=== PATIENT | female | born 1945 | race Caucasian/White ===

== ENCOUNTER 2023-12-30 06:15 | Day surgery (SDC) | payer MEDICARE, OTHER, SELFPAY ==
[2023-12-30 09:30] VITALS: BMI 24.5
[2023-12-30 09:31] VITALS: BP 148/63; BMI 24.5
[2023-12-30 11:51] VITALS: BP 130/72
[2023-12-30 12:00] VITALS: BP 144/70
[2023-12-30 12:15] VITALS: BP 115/53
== END 2023-12-30 12:30 | disposition home or self-care (01) ==
LOC: GI 06:15
PROVIDERS: ATTENDING PHYSICIAN Internal Medicine Gastroenterology
DX: K31.7 Polyp of stomach and duodenum (principal)
CPT/HCPCS: 43239; 88305

== ENCOUNTER → 2024-01-09 12:40 | Outpatient (REF) | payer MEDICARE, OTHER, SELFPAY | LOC: WDC 12:40 | PROVIDERS: ATTENDING PHYSICIAN Family Medicine | DX: Z12.31 Encounter for screening mammogram for malignant neoplasm of breast (principal) | CPT/HCPCS: 77063; 77067 ==

== ENCOUNTER → 2024-01-17 08:33 | Outpatient (REF) | payer MEDICARE, OTHER, SELFPAY ==
[2024-01-17 09:49] LABS: % Basophils 0.6 % (0-2); % Eosinophils 2.5 % (0-6); % Immature Granulocytes 0.4 % (0-0.5); % Lymphocytes 33.7 % (20.5-51.1); % Monocytes 8.9 % (1.7-9.3); % Neutrophils 53.9 % (42.2-75.2); Absolute Eosinophils 0.1 10^3/uL (0-0.7); Absolute Lymphocytes 1.8 10^3/uL (1.2-3.4); Absolute Monocytes 0.5 10^3/uL (0.1-0.6); Absolute Neutrophils 2.8 10^3/uL (1.4-6.5); Hematocrit 40.2 % (37.0-47.0); Hemoglobin 13.7 g/dL (12.0-16.0); Mean Corp Hgb Conc. 34.1 g/dL (33.0-37.0); Mean Corpuscular Hgb 29.1 pg (27.0-31.0); Mean Corpuscular Volume 85.4 fL (81.0-99.0); Mean Platelet Volume 10.1 fL (7.4-10.4); Nucleated Red Blood Cells % 0 %; Platelet Count 345 10^3/uL (130-400); Red Blood Cell Count 4.71 10^6/uL (4.20-5.40); Red Cell Dist. Width 12.5 % (11.5-14.5); White Blood Cell Count 5.2 10^3/uL (4.8-10.8)
[2024-01-17 10:08] LABS: ALT (SGPT) 16 U/L (0-35); AST (SGOT) 31 U/L (14-36); Albumin 4.4 g/dl (3.5-5.0); Alkaline Phosphatase 82 U/L (38-126); Blood Urea Nitrogen 17 mg/dl (7-17); Calcium 10.4 mg/dl (8.4-10.2); Carbon Dioxide 30 mmol/L (22-30); Chloride 102 mmol/L (98-107); Glucose 108 mg/dl (70-99); HDL Cholesterol 48 mg/dl; LDL Cholesterol, Calculated 113 mg/dl; Potassium 4.8 mmol/L (3.5-5.1); Sodium 138 mmol/L (135-145); Total Bilirubin 0.7 mg/dl (0.2-1.3); Total Cholesterol 194 mg/dl (50-199); Total Protein 6.9 g/dl (6.3-8.2); Triglyceride 166 mg/dl (10-149); Very Low Density Lipoprotein 33 mg/dl (0-30); eGFR > 60.00
[2024-01-17 10:34] LABS: Glycohemoglobin (HgbA1c) 5.9 % (4.0-5.6)
== END ==
LOC: REG 08:33
PROVIDERS: ATTENDING PHYSICIAN Family Medicine
DX: R73.03 Prediabetes (principal); R79.89 Other specified abnormal findings of blood chemistry; E78.00 Pure hypercholesterolemia, unspecified
CPT/HCPCS: 36415; 80053; 80061; 83036; 85025

== ENCOUNTER → 2024-01-27 11:16 | Outpatient (REF) | payer MEDICARE, OTHER, SELFPAY | LOC: DHCBC/DCA 11:16 | PROVIDERS: ATTENDING PHYSICIAN Nurse Practitioner Gerontology; FAMILY PHYSICIAN Family Medicine | DX: R07.9 Chest pain, unspecified (principal) | CPT/HCPCS: 78452; 93017; A9500 ==

== ENCOUNTER → 2024-02-04 12:46 | Outpatient (REF) | payer MEDICARE, OTHER, SELFPAY | LOC: HWRCS 12:46 | PROVIDERS: ATTENDING PHYSICIAN Nurse Practitioner Gerontology; FAMILY PHYSICIAN Family Medicine | DX: I35.0 Nonrheumatic aortic (valve) stenosis (principal) | CPT/HCPCS: 93306 ==

== ENCOUNTER 2024-02-05 06:37 | Day surgery (SDC) | payer MEDICARE, OTHER, SELFPAY ==
[2024-02-05] VITALS (8 sets, daily range): BP systolic 145–164; BP diastolic 56–83; BMI 23.8
== END 2024-02-05 17:15 | disposition home or self-care (01) ==
LOC: GI 06:37
PROVIDERS: ATTENDING PHYSICIAN Internal Medicine Gastroenterology
DX: D13.5 Benign neoplasm of extrahepatic bile ducts (principal); K29.50 Unspecified chronic gastritis without bleeding
CPT/HCPCS: 43274; 43250; 43273; 88305; 74330; 76000; 88342; C1769; C2617; C2625

== ENCOUNTER 2024-02-24 06:32 | Day surgery (SDC) | payer MEDICARE, OTHER, SELFPAY ==
[2024-02-24 10:45] VITALS: BMI 23.5
[2024-02-24 10:48] VITALS: BP 128/62
[2024-02-24 12:51] VITALS: BP 121/53
== END 2024-02-24 13:30 | disposition home or self-care (01) ==
LOC: SDS 06:32
PROVIDERS: ATTENDING PHYSICIAN Internal Medicine Gastroenterology
DX: Z46.59 Encounter for fitting and adjustment of other gastrointestinal appliance and device (principal)
CPT/HCPCS: 43247

== ENCOUNTER 2024-05-04 22:35 | Observation (INO) | payer MEDICARE, OTHER, SELFPAY ==
[2024-05-04] VITALS (9 sets, daily range): BP systolic 106–206; BP diastolic 60–93; BMI 24.6; BMI 25.0
[2024-05-04 14:00] LABS: % Basophils 0.5 % (0-2); % Eosinophils 1.7 % (0-6); % Immature Granulocytes 0.5 % (0-0.5); % Monocytes 7.2 % (1.7-9.3); % Neutrophils 70.1 % (42.2-75.2); Absolute Eosinophils 0.1 10^3/uL (0-0.7); Absolute Lymphocytes 1.6 10^3/uL (1.2-3.4); Absolute Monocytes 0.6 10^3/uL (0.1-0.6); Absolute Neutrophils 5.7 10^3/uL (1.4-6.5); Hematocrit 37.7 % (37.0-47.0); Mean Corp Hgb Conc. 34.5 g/dL (33.0-37.0); Mean Corpuscular Hgb 29.1 pg (27.0-31.0); Mean Corpuscular Volume 84.3 fL (81.0-99.0); Mean Platelet Volume 10.4 fL (7.4-10.4); Nucleated Red Blood Cells % 0 %; Platelet Count 335 10^3/uL (130-400); Red Blood Cell Count 4.47 10^6/uL (4.20-5.40); Red Cell Dist. Width 13.4 % (11.5-14.5); White Blood Cell Count 8.2 10^3/uL (4.8-10.8)
[2024-05-04 14:16] LABS: ALT (SGPT) 57 U/L (0-35); AST (SGOT) 147 U/L (14-36); Albumin 4.4 g/dl (3.5-5.0); Alkaline Phosphatase 130 U/L (38-126); Blood Urea Nitrogen 13 mg/dl (7-17); Calcium 10.5 mg/dl (8.4-10.2); Carbon Dioxide 28 mmol/L (22-30); Chloride 104 mmol/L (98-107); Glucose 127 mg/dl (70-99); Lipase 237 U/L (23-300); Potassium 3.7 mmol/L (3.5-5.1); Sodium 139 mmol/L (135-145); Total Bilirubin 1.3 mg/dl (0.2-1.3); Total Protein 6.8 g/dl (6.3-8.2); eGFR > 60.00
[2024-05-04] MEDS: OMNIPAQUE 50 ML PO (15:50)
[2024-05-04] MEDS: NSS 1000 IV (15:59)
[2024-05-04] MEDS: TORADOL 15 MG IV (15:59)
--- NOTE | 2024-05-04 16:24 | ED.GENMED ---
History of Present Illness
General
Chief Complaint: Abdominal Symptoms
Time Seen by Provider: 05/04/24 14:59
History of Present Illness
History of Present Illness:
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 Patient reports pain started a few hours prior to arrival. Notes
nausea without vomiting. Pain is located in the right side. History of tubal ligation, otherwise no additional abdominal surgeries. Denies fever. Pain is worse with deep inspiration. Denies chest culture breathing. Denies complaints.
Denies any changes in stool. Denies additional medical complaints
Phy Exam
Physical Exam
Physical Exam:
General: Well-appearing, no clinical signs of dehydration, nontoxic and in no acute distress
HEENT: protecting airway
Neck: appears supple
CV: Normal heart rate, regular rhythm, no evidence of cyanosis
Resp: No accessory muscle use, no increased work of breathing, lungs clear to auscultation bilaterally
Abd: Soft and non-distended, generalized tenderness most prominent in the right upper quadrant and right lower quad
Extremities: No deformities, no swelling, no erythema, pulses and sensation intact
Neuro: alert, no focal neurologic deficit
: deferred
Rectal: deferred
Psych: Normal affect
Skin: Intact
Course
Orders/Labs/Results
Orders:
Orders
05/04/24 13:49
Complete Blood Count/With Diff Urgent
Comprehensive Metabolic Panel Urgent
Lipase Urgent
05/04/24 15:38
CT Abd/pel W Iv And Oral Contr Urgent
Comment:
Reason For Exam: right sided pain
0.9% Sodium Chloride 1000 ml [Nss] 1,000 ml IV BOLUS
Iohexol [Omnipaque] See Protocol PO NOW STA
Ketorolac [Toradol] 15 mg IV NOW STA
05/04/24 18:30
US Abdomen Limited Urgent
Comment:
Reason For Exam: right sided pain, hx of tumor to extrahepatic duct
05/04/24 18:32
Ondansetron Injectable [Zofran] 4 mg IV NOW STA
Abnormal Lab Results
05/04/24
13:49
Lymphocytes % 20.0 L %
(20.5-51.1)
Glucose 127 H mg/dl
(70-99)
Calcium 10.5 H mg/dl
(8.4-10.2)
AST 147 H U/L
(14-36)
ALT 57 H U/L
(0-35)
Alkaline Phosphatase 130 H U/L
(38-126)
05/04/24 13:49
05/04/24 13:49
Vital Signs
Initial and Last Documented VS:
Initial Vital Signs
Temp Pulse Resp BP Pulse Ox
97.8 F 85 18 206/93 96
05/04/24 13:37 05/04/24 13:37 05/04/24 13:37 05/04/24 13:37 05/04/24 13:37
Last Documented Vital Signs
Temp Pulse Resp BP Pulse Ox
99.0 F 99 24 158/67 93
05/04/24 19:54 05/04/24 19:54 05/04/24 19:54 05/04/24 19:54 05/04/24 19:54
MDM/Problems Addressed
MDM/Problems Addressed:
78-year-old female with prior history of benign neoplasm x 2 to her extrahepatic duct status post removal presenting for right-sided abdominal pain. Vital signs significant for hypertension which resolved without intervention.
On exam, patient nontoxic, no acute distress. On abdominal exam, generalized tenderness, however most prominent to the right upper and lower quadrant of the abdomen. Possible gallbladder pathology versus recurrent neoplasm to extrahepatic ducts.
Additional consideration is appendicitis versus colitis versus diverticulitis. Given multiple differentials, plan for CT abdominal imaging with laboratory analysis. Toradol administered for pain.
18:30 -CT without significant abnormality. Patient is now vomiting, still having pain. For this reason we will obtain right upper quadrant ultrasound
20:40 -right upper quadrant ultrasound shows some dilatation to the biliary duct. Given transaminitis with this finding and patient's location of pain, feel patient warrants admission for MRCP. Patient agreeable to plan
*Critical Care Note
Total Time (30-74mins, 75-104mins- exclusive of procedures): Not Applicable
ED Attending Note
-
Portions of this chart may have been created with voice recognition software.� Occasional wrong word or��sound alike� substitutions may have occurred due to the inherent limitations of voice recognition software.
Discharge Plan
Departure
Prescriptions:
No Action
multivitamin Tablet
1 tab PO DAILY
lisinopril-hydrochlorothiazide 20-12.5 mg Tablet
1 tab PO HS
simvastatin 40 mg Tablet
40 mg PO HS
pantoprazole 40 mg Tablet,Delayed Release (Dr/Ec)
40 mg PO HS
cholecalciferol (vitamin D3) [Vitamin D3] 25 mcg (1,000 unit) Tablet
25 mcg PO DAILY
acetaminophen [Tylenol] 325 mg Tablet
650 mg PO Q6H PRN (Reason: pain)
Referrals:
Arnold Hollingsworth MD [Family Provider] -
Interventions
Interventions:
*Risk Screen - Suicide Last Done: 05/04/24 16:09
*General Assessment Last Done: 05/04/24 13:37
*Neglect/Abuse Screening Last Done: 05/04/24 13:37
ED- Fall Risk Assessment Last Done: 05/04/24 16:09
*ED COVID-19 Vaccine History Last Done: 05/04/24 16:09
MT-Dsjozr-Mcmkuaoqpo Assessment Last Done: 05/04/24 16:09
Discharge Date and Time
Print Language: UPPER SORBIAN
[2024-05-04] MEDS: ZOFRAN 4 MG IV (18:35)
--- NOTE | 2024-05-04 21:15 | HPS.HSE ---
Family Physician
-
Family Physician: Arnold Hollingsworth MD
Chief Complaint
-
abdominal pain
History of Present Illness
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
started few hours prior to arrival with some radiation to the back. Patient is nausea without vomiting. Pain is located on the right side and worse with deep inspiration. No fever but did have chills. No urinary symptoms. No chest pain or
shortness of breath. No diarrhea.
She drinks alcohol occasionally. She denies smoking.
Medical History
Past Medical History
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
Past Surgical History: Reports Other (ERCP, CBD stents )
Social History
Tobacco: Non-smoker
Alcohol: Occasional
Drug: None
Family History
Family History: Not pertinent
Allergies / Home Medications
Allergies reflects when Allergies were last updated in [facility].
Home Medications with original date entered in [facility]
Allergy/Medication List:
Allergies
Allergy/AdvReac Type Severity Reaction Status Date / Time
No Known Allergies Allergy Verified 05/04/24 13:43
Home Medications
lisinopril 20 mg-hydrochlorothiazide 12.5 mg tablet 1 tab PO HS Blood Pressure 03/11/23
pantoprazole 40 mg tablet,delayed release 40 mg PO HS Gastrointestinal Issue 03/11/23
simvastatin 40 mg tablet 40 mg PO HS High Cholesterol 03/11/23
Review of Systems
-
History Source: Patient
A 12 point ROS was completed and negative except as noted: Yes
Constitutional: Reports No Symptoms
EENT: Reports No Symptoms
Respiratory: Reports No Symptoms
Cardiac: Reports No Symptoms
Abdomen/GI: Reports See HPI
: Reports No Symptoms
Musculoskeletal: Reports No Symptoms
Skin: Reports No Symptoms
Neurological: Reports No Symptoms
Endocrine: Reports No Symptoms
Hematologic/Lymphatic: Reports No Symptoms
Psych: Reports No Symptoms
Physical Exam
Vital Signs
Vital Signs
Temp Pulse Resp BP Pulse Ox
99.0 F 99 24 158/67 93
05/04/24 19:54 05/04/24 19:54 05/04/24 19:54 05/04/24 19:54 05/04/24 19:54
Physical Exam
General: Well Developed, Well Nourished and No Apparent Distress
HEENT: NormoCephalic, Moist mucous membranes and Atraumatic
Respiratory: Clear
Cardiac: S1/S2 and Regular Rhythm; No Murmur or Rub
GI: Soft, Non Tender, Non Distended and Normal Bowel Sounds; No Organomegaly
Rectal: Deferred by Provider
Musculoskeletal: No Clubbing, No Cyanosis and No Edema
Skin: No Rash
Neuro: Nonfocal/grossly intact
Laboratory Results
-
05/04/24 13:49
05/04/24 13:49
Laboratory Results
Total Bilirubin 1.3 mg/dl (0.2-1.3) 05/04/24 13:49
AST 147 U/L (14-36) H 05/04/24 13:49
ALT 57 U/L (0-35) H 05/04/24 13:49
Alkaline Phosphatase 130 U/L (38-126) H 05/04/24 13:49
Lipase 237 U/L (23-300) 05/04/24 13:49
Data Reviewed
-
Lab Data: Labs Reviewed by me
Old Records: Reviewed
Impression/Plan
-
IMPRESSION:
PLAN:
# Abdominal pain possibly secondary to recurrent CBD obstruction
# History of ampullary adenoma status post ampullectomy/CBD/ventral pancreatic duct stenting with subsequent stent removal
# Transaminitis
-CT abdomen pelvis shows without notable findings
-Abdominal ultrasound shows mildly dilated common bile duct with questionable stent, mild pneumobilia
-MRCP
-N.p.o.
-IV fluids given
-Hold off antibiotics as no clear indication of infection
-GI consulted
Essential hypertension
-Continue lisinopril/hydrochlorothiazide
Hyperlipidemia
-Hold statin due to transaminitis
GERD
-Continue Protonix
DNR/DNI
DVT prophylaxis�heparin
N.p.o.
[2024-05-04] MEDS: FLUSH (NSS) 1 FLUSH IV (22:00)
[2024-05-04] MEDS: TYLENOL 650 MG PO (22:10)
--- NOTE | 2024-05-04 23:47 | PTCARENOTE ---
Patient arrived to unit around 23:00 via wheelchair with dx of Abdominal pain, possible CBD obstruction. Patient denies pain or discomfort at current time. Pleasant and cooperative with care. No signs of distress. Oriented to unit. Call rose within
reach.
[2024-05-05] VITALS: BP 104/60
[2024-05-05] MEDS: ZESTRIL PO (00:06)
[2024-05-05] MEDS: ORETIC PO (00:06)
--- NOTE | 2024-05-05 00:07 | PTCARENOTE ---
Patient Blood pressure on admit to floor was 106/70 with heart rate of 99. TRUCK OPERATOR notified because patient scheduled for Lisinopril and Hydrochlorothiazide with no parameters. Per TRUCK OPERATOR, recheck BP in 30 minutes. BP rechecked manually at 00:00 with BP
104/60 and heart rate 87. TRUCK OPERATOR notified and per TRUCK OPERATOR hold BP meds for tonight.
[2024-05-05] MEDS: PROTONIX 40 MG PO ×2 (00:11→21:20)
[2024-05-05 07:00] LABS: % Basophils 0.4 % (0-2); % Eosinophils 0.5 % (0-6); % Immature Granulocytes 0.4 % (0-0.5); % Lymphocytes 5.8 % (20.5-51.1); % Monocytes 5.6 % (1.7-9.3); % Neutrophils 87.3 % (42.2-75.2); Absolute Eosinophils 0.1 10^3/uL (0-0.7); Absolute Lymphocytes 0.6 10^3/uL (1.2-3.4); Absolute Monocytes 0.6 10^3/uL (0.1-0.6); Absolute Neutrophils 9.6 10^3/uL (1.4-6.5); Hematocrit 34.8 % (37.0-47.0); Hemoglobin 11.7 g/dL (12.0-16.0); Mean Corp Hgb Conc. 33.6 g/dL (33.0-37.0); Mean Corpuscular Hgb 28.7 pg (27.0-31.0); Mean Corpuscular Volume 85.5 fL (81.0-99.0); Mean Platelet Volume 10.8 fL (7.4-10.4); Nucleated Red Blood Cells % 0 %; Platelet Count 281 10^3/uL (130-400); Red Blood Cell Count 4.07 10^6/uL (4.20-5.40); Red Cell Dist. Width 13.6 % (11.5-14.5)
[2024-05-05 07:30] VITALS: BP 122/57
[2024-05-05 07:33] LABS: ALT (SGPT) 562 U/L (0-35); AST (SGOT) 664 U/L (14-36); Albumin 3.7 g/dl (3.5-5.0); Alkaline Phosphatase 171 U/L (38-126); Blood Urea Nitrogen 17 mg/dl (7-17); Calcium 9.2 mg/dl (8.4-10.2); Carbon Dioxide 28 mmol/L (22-30); Chloride 102 mmol/L (98-107); Estimated Creatinine Clearance 35 ml/min; Glucose 101 mg/dl (70-99); Potassium 4.2 mmol/L (3.5-5.1); Sodium 135 mmol/L (135-145); Total Protein 5.8 g/dl (6.3-8.2); eGFR 57.66
--- NOTE | 2024-05-05 08:35 | CON.GI ---
Addendum entered and electronically signed by Rajani Hoyos MD 05/05/24 19:56:
I saw and examined the patient.
The resident's note was reviewed and I agree with the note.
Comment: 78-year-old female with history of ampullary adenoma status post endoscopic ampullectomy May 2023 who is known to Dr. Hollingsworth, repeat endoscopy December 2023 showing residual polyp at the ampulla, biopsies showing tubular adenoma, subsequent
ampullectomy with APC in early January 2024 followed by ERCP and placement of plastic stents in the CBD and pancreatic duct, subsequently removed end of January 2024 now presenting with right upper quadrant abdominal pain starting last night. Pain was
going to the mid abdomen, on and off, similar to previous abdominal discomfort that she has had, had 1 episode of vomiting. Currently pain has resolved.
She did well since January 2024 after her EUS/ERCP without any GI symptoms-No abdominal pain, nausea or vomiting, heartburn, trouble swallowing. No constipation, diarrhea, blood in the stool or black stool. No NSAID use.
In the ER she had mild leukocytosis, her total bilirubin on admission was 1.3, it went up to 3.0, AST of 147, went up to 664, ALT of 57, up to 562 and alkaline phosphatase of 130, up to 171.Lipase in normal range.
On admission 05/04/[address] scan of the abdomen and pelvis with IV and oral contrast, small volume intrahepatic biliary tract air, related to prior sphincterotomy, otherwise no significant findings. Abdominal ultrasound shows mildly dilated
common duct and mild pneumobilia and minimal gallbladder sludge.MRI of the abdomen with MRCP showing small amount of pericholecystic fluid, mild gallbladder wall thickening and 2 small filling defects in the gallbladder consistent with stones.
Common duct 9.3 mm, previously 12 mm low-signal intensity intraluminal filling defects in the common duct but given pneumobilia, likely related to previous manipulation.
-Right upper quadrant abdominal pain with elevated LFTs
Imaging consistent with possible bladder sludge, wall thickening, questionable filling defects, cannot rule out acute cholecystitis/choledocholithiasis
Currently no pain. No Bocanegra sign.
Will do HIDA scan to evaluate for acute cholecystitis/choledocholithiasis
Monitor LFTs
Will follow closely
Original Note:
Medical History
Chief Complaint / HPI
Chief Complaint: Abdominal pain
History of Present Illness:
Patient is a 70-year-old female with past medical history of ampullary adenoma (known to Dr. Hollingsworth) s/p endoscopic ampullectomy (06/03/23) who presented to ED with right upper abdominal pain. Patient was nauseous prior to presentation and had 1
episode of NBNB vomiting while in ED. Her last bowel movement was yesterday morning which was nonbloody/non-tarry. She denies any fever or chills during the past few days. Patient underwent ERCP and biliary pancreatic stent placement on 02/05/24.
Stents were removed by Dr. Hollingsworth on 02/24/24. At the time of consultation, patient mentions abdominal pain has resolved. Abdominal CT is unremarkable. No gallbladder wall thickening/stones on US. Sonographic Bocanegra's sign is negative.
Patient denies any recent weight loss or change in bowel movements. Last colonoscopy was in 2020 and she is scheduled for next follow-up cscopy in 2025.
PCP is Gloria Brandt. Does not see an oncologist.
Past Medical History
Past Medical History: GERD, HTN, Hypercholesterolemia and Other (Ampullary adenoma, colon polyps, duodenal polyps)
Past Surgical History: Other (endoscopic ampullectomy)
Family History
Family History: Cancer (Father had esophageal cancer, no history of colon cancer in family members)
Allergies / Home Medications
Allergy/AdvReac Type Severity Reaction Status Date / Time
No Known Allergies Allergy Verified 05/04/24 13:43
�Medication �Instructions �Recorded
lisinopril 20 1 tab PO HS Blood Pressure 03/11/23
mg-hydrochlorothiazide 12.5 mg
tablet
pantoprazole 40 mg tablet,delayed 40 mg PO HS Gastrointestinal Issue 03/11/23
release
simvastatin 40 mg tablet 40 mg PO HS High Cholesterol 03/11/23
Review of Systems
-
History Source: Patient
All other systems: A 12 pt ROS was Negative except as stated above in HPI
Abdomen/GI: Denies Abdominal Pain or Bloody Stools
Vital Signs
Temp Pulse Resp BP Pulse Ox
99.4 F 84 16 122/57 91
05/05/24 07:30 05/05/24 07:30 05/05/24 07:30 05/05/24 07:30 05/05/24 07:30
Physical Exam
Exam
General: Well Developed and No Apparent Distress
HEENT: Normocephalic
Respiratory: Clear
Cardiac: S1/S2 and Regular Rhythm
GI: Soft, Non Tender, Non Distended and Normal Bowel Sounds
Musculoskeletal: No Edema
Skin: Warm and Dry
Neuro: Awake, Alert, Oriented and AO x 3
Results
WBC 11.0 10^3/uL (4.8-10.8) H 05/05/24 05:50
Hgb 11.7 g/dL (12.0-16.0) L 05/05/24 05:50
Hct 34.8 % (37.0-47.0) L 05/05/24 05:50
MCV 85.5 fL (81.0-99.0) 05/05/24 05:50
Plt Count 281 10^3/uL (130-400) 05/05/24 05:50
Absolute Neuts (auto) 9.6 10^3/uL (1.4-6.5) H 05/05/24 05:50
Sodium 135 mmol/L (135-145) 05/05/24 05:50
Potassium 4.2 mmol/L (3.5-5.1) 05/05/24 05:50
Chloride 102 mmol/L (98-107) 05/05/24 05:50
Carbon Dioxide 28 mmol/L (22-30) 05/05/24 05:50
BUN 17 mg/dl (7-17) 05/05/24 05:50
Creatinine 1.0 mg/dL (0.6-1.0) 05/05/24 05:50
Calcium 9.2 mg/dl (8.4-10.2) 05/05/24 05:50
Total Bilirubin 3.0 mg/dl (0.2-1.3) H D 05/05/24 05:50
AST 664 U/L (14-36) H* 05/05/24 05:50
ALT 562 U/L (0-35) H* 05/05/24 05:50
Alkaline Phosphatase 171 U/L (38-126) H 05/05/24 05:50
Lipase 237 U/L (23-300) 05/04/24 13:49
Diagnostic Image Results:
Abdominal ultrasound (05/04/2024):
Mildly dilated common bile duct with questionable stent.
Mild pneumobilia suspected as noted on concurrent CT.
Minimal gallbladder sludge. No gallbladder wall thickening. Negative sonographic Bocanegra's sign.
Abdominal CT scan (05/04/2024):
Unremarkable appendix.
Unremarkable small bowel. Only small volume oral contrast seen in portion of cecum, remainder of large bowel markedly limited in evaluation without oral contrast as well as markedly limited evaluation of virtually completely empty descending colon,
sigmoid and rectum. No intestinal obstruction or free air.
Relative small size, possibly contracted gallbladder, limited without gross focal intrinsic abnormality. Small volume intrahepatic biliary tract air decreased in comparison to prior CT, possibly related to prior sphincterotomy/procedure. Apparent
plastic common bile duct and pancreatic duct stents placed in January 2024, not discretely appreciated on this study in this patient with known ampullary adenoma.
No findings to suggest obstructive uropathy bilaterally.
Prior GI Procedures:
EGD:
02/24/2024: Plastic biliary pancreatic stents in the duodenum removed.
02/05/2024: Normal esophagus. No gross lesions in the entire stomach. Normal duodenal bulb and first portion of the duodenum. Duodenal diverticulum.Mass (suspected recurrent / residual adenoma) in the ampulla. Treated with hot biopsy forceps. Treated
with argon plasma coagulation (APC)
Colonoscopy:
02/23/21: One 9 mm polyp in the sigmoid colon, removed with a hot snare.
03/06/16: Two 4 to 5 mm polyps in the sigmoid colon and in the descending colon.
Assessment / Plan
-
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
Patient's abdominal pain is now resolved and is not tender to palpation. No fever recorded in chart during the past day. LFTs continue to rise. Total bili is 3. Abdominal CT is unremarkable except small volume intrahepatic biliary tract air
(decreased in comparison to prior CT) .Patient is n.p.o. and scheduled for MRCP later today.
Recommendations:
-Continue Protonix
-Agree with no need for antibiotics
-Depending on MRCP results, may consider transfer to tertiary center
-Possible HIDA scan tomorrow
-Antiemetics as needed
-
-
Thank you for consultation and allowing me to participate in the patient's care. Please call the telephone answerer GI physician during the after hours with any questions or concerns.
[2024-05-05] MEDS: HEPARIN 5000 UNITS SC ×2 (10:21→21:19)
[2024-05-05] MEDS: TYLENOL 650 MG PO ×2 (12:17→22:36)
--- NOTE | 2024-05-05 13:39 | W.PN.HOSP.TC ---
Today's Communication/Plan
-
Follow-up MRCP, coordinate with GI and regards to plan
Trend LFTs daily, avoid hepatotoxins
Monitor for fevers or worsening AMS
Assessment / Plan
Assessment / Plan
#Transaminitis -- Hepatocellular pattern
#Abdominal pain -- secondary to recurrent CBD obstruction???
#H/O ampullary adenoma
#S/P ampullectomy/CBD/ventral pancreatic duct stenting with subsequent stent removal
-Presented with mildly elevated AST and ALT, normal bilirubin; labs today show AST and ALT >10 times UN L, bilirubin 3.0, ALP 171
-CT A/P without contrast did not show any evidence of extrinsic causes for biliary obstruction or acute liver injury
-Abdominal US showed mildly dilated CBD; MRCP showed slight improvement to ductal dilation, intraluminal filling defects
-Has remained afebrile, without leukocytosis, HD stable and cognitively intact; suspicion for cholangitis is very low
-GI following
Plan
-Will follow-up with GI in regards to MRCP findings, possible indication for transfer versus ERCP
-Continue to trend daily LFTs while here, will begin to monitor INR as well tomorrow
-Holding statin therapy, avoid unnecessary hepatotoxins as able
-N.p.o. pending potential procedure
#Essential hypertension
-Chronic, no known history of hypertensive systemic disease
-Home medications include lisinopril and hydrochlorothiazide nightly
-BP currently well-controlled
#Hyperlipidemia
-No known history of ASCVD
-Home simvastatin held due to uptrending LFTs
#GERD
-No known history of Salinas's disease, no known history of erosive findings
-Home medications include Protonix nightly
-No red flag symptoms, stable
DNR/DNI
DVT prophylaxis�heparin
Diet: N.p.o.
Anticipated Discharge: > 48 hours
Subjective/Interval History
-
Date of Service: May 05, 2024
Objective Data
-
Labs:
Laboratory Results
05/05/24
05:50
WBC 11.0 H
Hgb 11.7 L
Hct 34.8 L
Plt Count 281
Sodium 135
Potassium 4.2
Chloride 102
Carbon Dioxide 28
BUN 17
Creatinine 1.0
Glucose 101 H
Calcium 9.2
Total Bilirubin 3.0 H D
AST 664 H*
ALT 562 H*
Alkaline Phosphatase 171 H
Vital Signs:
Vital Signs
Temp Pulse Resp BP Pulse Ox
99.4 F 84 16 122/57 91
05/05/24 07:30 05/05/24 07:30 05/05/24 07:30 05/05/24 07:30 05/05/24 07:30
--- NOTE | 2024-05-05 13:56 | CM ---
Patient seen bedside, initial assessment completed. Patient resides with her spouse in a multiple story home, master bedroom on the first floor, one step to enter home. Patient denies DME, VN, or SNF. Patient PCP Gloria Brandt, pharmacy [facility]
[place], confirms prescription coverage. Patient denies food, housing/utility, transportation insecurities at home. [employer] form reviewed, signed, placed in chart, patient provided with copy. CM will continue to follow for all discharge planning
needs.
Plan; home no needs likely.
[2024-05-05 15:51] VITALS: BP 125/50
[2024-05-05] MEDS: ZESTRIL 20 MG PO (21:20)
[2024-05-05] MEDS: ORETIC 12.5 MG PO (21:20)
[2024-05-05 23:03] VITALS: BP 107/80
[2024-05-06 07:00] VITALS: BP 148/64
[2024-05-06 07:18] LABS: % Basophils 0.1 % (0-2); % Eosinophils 2.7 % (0-6); % Immature Granulocytes 0.4 % (0-0.5); % Monocytes 9.5 % (1.7-9.3); % Neutrophils 78.3 % (42.2-75.2); Absolute Eosinophils 0.2 10^3/uL (0-0.7); Absolute Lymphocytes 0.7 10^3/uL (1.2-3.4); Absolute Monocytes 0.7 10^3/uL (0.1-0.6); Absolute Neutrophils 6.1 10^3/uL (1.4-6.5); Hematocrit 34.7 % (37.0-47.0); Mean Corp Hgb Conc. 34.6 g/dL (33.0-37.0); Mean Corpuscular Hgb 29.2 pg (27.0-31.0); Mean Corpuscular Volume 84.4 fL (81.0-99.0); Mean Platelet Volume 10.8 fL (7.4-10.4); Nucleated Red Blood Cells % 0 %; Platelet Count 256 10^3/uL (130-400); Red Blood Cell Count 4.11 10^6/uL (4.20-5.40); Red Cell Dist. Width 13.6 % (11.5-14.5); White Blood Cell Count 7.8 10^3/uL (4.8-10.8)
[2024-05-06 07:23] LABS: INR 1.02; PT 13.4 Sec (11.4-14.6)
[2024-05-06 08:04] LABS: ALT (SGPT) 384 U/L (0-35); AST (SGOT) 226 U/L (14-36); Albumin 3.8 g/dl (3.5-5.0); Alkaline Phosphatase 178 U/L (38-126); Blood Urea Nitrogen 10 mg/dl (7-17); Calcium 9.7 mg/dl (8.4-10.2); Carbon Dioxide 30 mmol/L (22-30); Chloride 103 mmol/L (98-107); Direct Bilirubin 1.1 mg/dl (0.0-0.4); Estimated Creatinine Clearance 35 ml/min; Glucose 102 mg/dl (70-99); Potassium 4.4 mmol/L (3.5-5.1); Sodium 137 mmol/L (135-145); Total Bilirubin 2.4 mg/dl (0.2-1.3); Total Protein 5.9 g/dl (6.3-8.2); eGFR 57.66
[2024-05-06] MEDS: ZOSYN 50 IV ×3 (10:13→20:55)
[2024-05-06] MEDS: HEPARIN 5000 UNITS SC ×2 (10:15→20:55)
--- NOTE | 2024-05-06 10:39 | W.PN.HOSP.TC ---
Today's Communication/Plan
-
Start IV Zosyn empirically for fever
Follow-up HIDA scan
Trend LFT
Assessment / Plan
Assessment / Plan
#Transaminitis/suspected transient biliary obstruction -- Mixed pattern initially, now improving
#Suspected cholecystitis
#H/O ampullary adenoma
#S/P ampullectomy/CBD/ventral pancreatic duct stenting with subsequent stent removal
-Presented with mildly elevated AST and ALT, normal bilirubin; labs today show AST and ALT >10 times ULN, bilirubin 3.0, ALP 171
-CT A/P without contrast did not show any evidence of extrinsic causes for biliary obstruction or acute liver injury
-Abdominal US showed mildly dilated CBD; MRCP showed slight improvement to ductal dilation, intraluminal filling defects
-LFTs this morning show improved transaminases and bilirubin/ALP levels; suspect transient obstruction from stone
-Has remained hemodynamically stable throughout hospital stay, did spike fever yesterday
Plan
-Start IV Zosyn empirically for biliary coverage
-HIDA scan today, follow-up results
-Continue to trend daily LFTs while here
-Holding statin therapy, avoid unnecessary hepatotoxins as able
-Continue with clear liquid diets
#Essential hypertension
-Chronic, no known history of hypertensive systemic disease
-Home medications include lisinopril and hydrochlorothiazide nightly
-BP currently well-controlled
#Hyperlipidemia
-No known history of ASCVD
-Home simvastatin held due to uptrending LFTs
#GERD
-No known history of Salinas's disease, no known history of erosive findings
-Home medications include Protonix nightly
-No red flag symptoms, stable
DNR/DNI
DVT prophylaxis�heparin
Diet: CLD, NPO at midnight
Anticipated Discharge: 24 - 48 hours
Subjective/Interval History
-
Date of Service: May 06, 2024
Seen and examined at bedside. Overnight she did spike a fever 101 �F, states she felt febrile at the time. No longer feels feverish this morning. Denies nausea, vomiting, diarrhea, abdominal pain. Denies urinary issues. Denies abnormal bleeding
or bruising. Has not had a bowel movement, denies constipation though she states she has not had solid food in days
Objective Data
-
Labs:
Laboratory Results
05/06/24
06:49
WBC 7.8
Hgb 12.0
Hct 34.7 L
Plt Count 256
PT 13.4
INR 1.02
Sodium 137
Potassium 4.4
Chloride 103
Carbon Dioxide 30
BUN 10
Creatinine 1.0
Glucose 102 H
Calcium 9.7
Total Bilirubin 2.4 H
AST 226 H
ALT 384 H
Alkaline Phosphatase 178 H
Vital Signs:
Vital Signs
Temp Pulse Resp BP Pulse Ox
98.7 F 84 18 148/64 95
05/06/24 07:00 05/06/24 07:00 05/06/24 07:00 05/06/24 07:00 05/06/24 07:00
I&O
05/05/24 05/06/24 05/07/24
06:59 06:59 06:59
Intake Total 850 / 850
Balance 850 / 850
Review of Systems
-
History Source: Patient
All other systems: Reviewed and negative
Physical Exam
-
General: Well Nourished, No Apparent Distress and Comfortable
HEENT: Normocephalic, Atraumatic, Moist Mucous Membranes and Anicteric
Respiratory: Clear to Auscultation and Non Labored Respirations
Cardiac: Regular Rhythm, S1/S2 and Murmur (3/6 late peaking ODALIS across precordium, mildly reduced S2 with reduced carotid upstroke)
GI: Soft, Nontender, Nondistended and Normal Bowel Sounds; Negative Organomegaly
Musculoskeletal: No Clubbing, No Cyanosis and No Edema
Skin: Warm and Dry; Negative Rash or Jaundice
Neuro: AO x 3, Nonfocal/Grossly Intact and Central Nerve's Intact
Hematologic / Lymphatic: No Lymphadenopathy
Data Reviewed
-
Labs: Labs Reviewed by me and Discussed with Patient
--- NOTE | 2024-05-06 10:57 | W.PN.GI.CBS2 ---
Addendum entered and electronically signed by Rajani Hoyos MD 05/06/24 16:27:
I saw and examined the patient.
The resident's note was reviewed and I agree with the note.
Comment: Patient denies any abdominal pain, nausea or vomiting. Had fever overnight but nothing since. Otherwise feels well.
LFTs trending down.
HIDA scan did not show any evidence of acute cholecystitis or choledocholithiasis or bile duct obstruction.
Cannot rule out gallbladder sludge could have passed causing symptoms.
Given no abdominal pain LFTs trending down, will put her on a low-fat diet.
If no further symptoms and LFTs continue to trend down, follow-up with Dr. Hollingsworth as an outpatient in the office.
Original Note:
Today's Communication / Plan
-
HIDA scan today
Assessment / Plan
-
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
Patient's abdominal pain is resolved and is not tender to palpation. Negative Bocanegra sign. Two episodes of fever recorded in chart during the past day. Currently afebrile. LFT and bili is downtrending. Abdominal CT is unremarkable except small
volume intrahepatic biliary tract air (decreased in comparison to prior CT) . MRI of the abdomen with MRCP showed small amount of pericholecystic fluid, mild gallbladder wall thickening and 2 small filling defects in the gallbladder consistent with
stones. Common duct 9.3 mm, previously 12 mm low-signal intensity intraluminal filling defects in the common duct but given pneumobilia, likely related to previous manipulation.
Plan:
- Continue Protonix
- HIDA to be done this morning to evaluate cholecystics, choledocholithiasis
- Can ADAT after HIDA is done
- Continue to monitor LFTs, body temperature
Subjective
Subjective
Date of Service: May 06, 2024
Patient is feeling good. Had two episodes of fever overnight but is currently afebrile and hemodynamically stable. She does not complain of any abdominal pain. No nausea/vomiting.
Objective
Data Reviewed
Laboratory Data:
Laboratory Results
05/06/24 06:49
05/06/24 06:49
Laboratory Results
PT 13.4 Sec (11.4-14.6) 05/06/24 06:49
INR 1.02 05/06/24 06:49
Total Bilirubin 2.4 mg/dl (0.2-1.3) H 05/06/24 06:49
AST 226 U/L (14-36) H 05/06/24 06:49
ALT 384 U/L (0-35) H 05/06/24 06:49
Alkaline Phosphatase 178 U/L (38-126) H 05/06/24 06:49
Lipase 237 U/L (23-300) 05/04/24 13:49
Vital Signs and I&O:
Vital Signs
Temp Pulse Resp BP Pulse Ox
98.7 F 84 18 148/64 95
05/06/24 07:00 05/06/24 07:00 05/06/24 07:00 05/06/24 07:00 05/06/24 07:00
I&O
05/05/24 05/06/24 05/07/24
06:59 06:59 06:59
Intake Total 850 / 850
Balance 850 / 850
Physical Exam
Physical Exam
HEENT: Anicteric and Moist mucous membranes
Cardiology: Normal Sinus Rhythm, S1 and S2
Pulmonary: Clear
GI: Soft, Non Distended, Non Tender and Normal Bowel Sounds
Extremities: No Edema
--- NOTE | 2024-05-06 12:26 | PTCARENOTE ---
order rec'd from Dr. Avelar for IV morphine for hida scan. patient identified via name and . verified allergies. Bp 174/79 HR 87. Right arm 20g antecubital INt flushed and patent. Morphine 2mg IV x 1 dose given via RAC. no immediate issues post
administration.
--- NOTE | 2024-05-06 14:12 | CM ---
Patient seen bedside, reports no needs to CM at this time. Patient for HIDA scan today. CM will continue to follow for all discharge planning needs.
Plan; home no needs likely.
[2024-05-06 15:00] VITALS: BP 144/58
[2024-05-06] MEDS: FLUSH (NSS) 1 FLUSH IV (17:24)
[2024-05-06] MEDS: PROTONIX 40 MG PO (20:52)
[2024-05-06] MEDS: ORETIC 12.5 MG PO (20:52)
[2024-05-06] MEDS: ZESTRIL 20 MG PO (20:53)
[2024-05-06 23:03] VITALS: BP 149/69
[2024-05-07] MEDS: ZOSYN 50 IV (04:23)
[2024-05-07 07:00] VITALS: BP 158/65
[2024-05-07] MEDS: HEPARIN 5000 UNITS SC (08:02)
--- NOTE | 2024-05-07 08:33 | W.PN.GI.CBS2 ---
Today's Communication / Plan
-
patient is clear for discharge from GI standpoint. Outpatient endoscopy scheduled.
Assessment / Plan
-
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
Patient has been pain free for the past two days. Abdomen is not tender to palpation. Negative Bocanegra sign. No fevers overnight. Currently hemodynamically stable and afebrile. LFT and bili this am pending. HIDA scan was normal.
Plan:
- HIDA done yesterday which was normal
- Patient is scheduled for outpatient endoscopy with Dr. Hollingsworth in July
- Patient is clear for discharge from GI standpoint
Subjective
Subjective
Date of Service: May 07, 2024
Patient does not offer any complaints. Does not have any abd pain. No nausea/ vomiting.
Objective
Data Reviewed
Laboratory Data:
Laboratory Results
PT 13.4 Sec (11.4-14.6) 05/06/24 06:49
INR 1.02 05/06/24 06:49
Total Bilirubin 2.4 mg/dl (0.2-1.3) H 05/06/24 06:49
AST 226 U/L (14-36) H 05/06/24 06:49
ALT 384 U/L (0-35) H 05/06/24 06:49
Alkaline Phosphatase 178 U/L (38-126) H 05/06/24 06:49
Lipase 237 U/L (23-300) 05/04/24 13:49
Vital Signs and I&O:
Vital Signs
Temp Pulse Resp BP Pulse Ox
98.4 F 76 17 158/65 94
05/07/24 07:00 05/07/24 07:00 05/07/24 07:00 05/07/24 07:00 05/07/24 07:00
I&O
05/06/24 05/07/24 05/08/24
06:59 06:59 06:59
Intake Total 850 / 850 1680 / 1680
Balance 850 / 850 1680 / 1680
Physical Exam
Physical Exam
HEENT: Anicteric and Moist mucous membranes
Cardiology: Normal Sinus Rhythm, S1 and S2
Pulmonary: Clear
GI: Soft, Non Distended, Non Tender and Normal Bowel Sounds
Rectal: Brown
Extremities: No Edema
[2024-05-07 09:29] LABS: % Basophils 0.7 % (0-2); % Eosinophils 2.4 % (0-6); % Immature Granulocytes 0.3 % (0-0.5); % Monocytes 13.4 % (1.7-9.3); % Neutrophils 63.2 % (42.2-75.2); Absolute Eosinophils 0.1 10^3/uL (0-0.7); Absolute Lymphocytes 1.2 10^3/uL (1.2-3.4); Absolute Monocytes 0.8 10^3/uL (0.1-0.6); Absolute Neutrophils 3.7 10^3/uL (1.4-6.5); Hemoglobin 13.4 g/dL (12.0-16.0); Mean Corp Hgb Conc. 34.4 g/dL (33.0-37.0); Mean Corpuscular Hgb 29.6 pg (27.0-31.0); Mean Corpuscular Volume 86.1 fL (81.0-99.0); Mean Platelet Volume 10.5 fL (7.4-10.4); Nucleated Red Blood Cells % 0 %; Platelet Count 300 10^3/uL (130-400); Red Blood Cell Count 4.53 10^6/uL (4.20-5.40); Red Cell Dist. Width 13.3 % (11.5-14.5); White Blood Cell Count 5.9 10^3/uL (4.8-10.8)
[2024-05-07 10:07] LABS: ALT (SGPT) 288 U/L (0-35); AST (SGOT) 90 U/L (14-36); Albumin 4.3 g/dl (3.5-5.0); Alkaline Phosphatase 199 U/L (38-126); Blood Urea Nitrogen 9 mg/dl (7-17); Calcium 10.1 mg/dl (8.4-10.2); Carbon Dioxide 30 mmol/L (22-30); Chloride 101 mmol/L (98-107); Direct Bilirubin 0.5 mg/dl (0.0-0.4); Estimated Creatinine Clearance 35 ml/min; Glucose 108 mg/dl (70-99); Potassium 4.7 mmol/L (3.5-5.1); Sodium 135 mmol/L (135-145); Total Bilirubin 1.5 mg/dl (0.2-1.3); Total Protein 6.7 g/dl (6.3-8.2); eGFR 57.66
--- NOTE | 2024-05-07 10:28 | W.PN.HOSP.TC ---
Today's Communication/Plan
-
Discontinue IV antibiotics
If afebrile throughout morning and early afternoon, can be DC'd
Assessment / Plan
Assessment / Plan
#Transaminitis/suspected transient biliary obstruction -- Mixed pattern initially, now improving; suspect transient obstruction from gallbladder sludge
#H/O ampullary adenoma
#S/P ampullectomy/CBD/ventral pancreatic duct stenting with subsequent stent removal
-Presented with mildly elevated AST and ALT, normal bilirubin; labs today show AST and ALT >10 times ULN, bilirubin 3.0, ALP 171
-CT A/P without contrast did not show any evidence of extrinsic causes for biliary obstruction or acute liver injury
-Abdominal US showed mildly dilated CBD; MRCP showed slight improvement to ductal dilation; HIDA negative
-LFTs this morning show improved transaminases and bilirubin/ALP levels; suspect transient obstruction from stone versus sludge
-No further fevers reported, LFTs continue to downtrend today
Plan
-Stop empiric IV antibiotics
-Monitor for fever recurrence
-Continue to trend daily LFTs while here
-Holding statin therapy, avoid unnecessary hepatotoxins as able
-Continue with low-fat diet
#Essential hypertension
-Chronic, no known history of hypertensive systemic disease
-Home medications include lisinopril and hydrochlorothiazide nightly
-BP currently well-controlled
#Hyperlipidemia
-No known history of ASCVD
-Home simvastatin held due to uptrending LFTs
#GERD
-No known history of Salinas's disease, no known history of erosive findings
-Home medications include Protonix nightly
-No red flag symptoms, stable
DNR/DNI
DVT prophylaxis�heparin
Diet: CLD, NPO at midnight
Anticipated Discharge: Today
Subjective/Interval History
-
Date of Service: May 07, 2024
No acute events. Seen and examined at bedside, has no acute acute complaints this morning. She denies recurrence of fevers since the evening 2 days ago. Has no recurrence of abdominal pain either. She denies chest pain, shortness of breath,
nausea, vomiting, diarrhea, paresthesias, abnormal bleeding or bruising, dark stools.
She states that she would like to go home today if possible.
Objective Data
-
Labs:
Laboratory Results
05/07/24
08:59
WBC 5.9
Hgb 13.4
Hct 39.0
Plt Count 300
Sodium 135
Potassium 4.7
Chloride 101
Carbon Dioxide 30
BUN 9
Creatinine 1.0
Glucose 108 H
Calcium 10.1
Total Bilirubin 1.5 H
AST 90 H
ALT 288 H
Alkaline Phosphatase 199 H
Vital Signs:
Vital Signs
Temp Pulse Resp BP Pulse Ox
98.4 F 76 17 158/65 94
05/07/24 07:00 05/07/24 07:00 05/07/24 07:00 05/07/24 07:00 05/07/24 07:00
I&O
05/06/24 05/07/24 05/08/24
06:59 06:59 06:59
Intake Total 850 / 850 1680 / 1680
Balance 850 / 850 1680 / 1680
Review of Systems
-
History Source: Patient
All other systems: Reviewed and negative
Physical Exam
-
General: Well Nourished, No Apparent Distress and Comfortable
HEENT: Normocephalic, Atraumatic and Moist Mucous Membranes; Negative Anicteric
Respiratory: Clear to Auscultation and Non Labored Respirations
Cardiac: Regular Rhythm and S1/S2; Negative Murmur or Gallop
GI: Soft, Nontender, Nondistended, Normal Bowel Sounds and No Hepatosplenomegaly
Musculoskeletal: No Clubbing, No Cyanosis and No Edema
Skin: Warm and Dry; Negative Rash or Jaundice
Neuro: AO x 3, Nonfocal/Grossly Intact and Central Nerve's Intact
Data Reviewed
-
Labs: Labs Reviewed by me and Discussed with Patient
--- NOTE | 2024-05-07 10:38 | W.DCSUMMARY ---
Discharge Summary
Discharge Data
Date of Admission: 05/04/24
Date of Discharge: 05/07/24
-
Pending Results: No
Hospital Course
Presented to the hospital with abdominal pain, had a transient bump in LFTs with abnormal values in the range of 10X ULN for transaminases, bilirubin peak at 3, ALP peaked at 2X ULN. Underwent extensive workup for assessment of biliary obstruction,
especially in the context of her previous ampullary procedures and history of pancreaticobiliary stents. MRCP, CT A/P did not show any evidence of extrinsic compression nor evidence of dilated biliary tracts. HIDA scan was performed which was also
unremarkable. Gastroenterology evaluated patient, suspicion is that patient had biliary sludge that passed and created a transient obstruction. Her LFTs down trended quickly after peak.
She also did have a brief fever of 101 �F on the evening of 05/05/2024. Was briefly on IV Zosyn empirically for biliary coverage. Discontinued on morning of discharge, monitored over the course of the day for recurrence of fevers or other symptoms.
Patient felt fine and was stable for DC, recommended to follow-up with her primary care doctor and GI referral after DC.
Discharge Plan
-
Patient Disposition: Home (Routine Discharge)
Discharge Diagnosis/Procedures: Transient biliary obstruction
Fever of unclear origin
Elevated LFTs
Condition: Good
Diet: Low Fat and Low Cholesterol
Activity: As tolerated
Driving Restrictions: As prior to admission
Specialty Instructions: Weigh Daily- Call MD for wt gain/loss 3 lbs overnight/5 lbs in 1 week
Activity Restrictions/Additional Instructions:
If you develop recurrence of fever or abdominal pain, after being discharged, you should return to the emergency department for further assessment.
Instructions: Gallstones, Low-fat diet
Referrals:
Arnold Hollingsworth MD [Family Provider] - (due EGD 08/05 call to arrange follow up prior to procedure )
Chris Mercer MD [Active] - (If you need referral for a family doctor)
Additional Discharge Medication Instructions: Discontinued simvastatin due to possible effects on liver, please speak with family doctor before resuming
Prescriptions:
New
acetaminophen 325 mg Tablet
650 mg PO Q4HPRN PRN (Reason: mild pain/IRVIN/temp> 100.4F) 7 Days Qty: 30 0RF
Continued
lisinopril-hydrochlorothiazide 20-12.5 mg Tablet
1 tab PO HS
pantoprazole 40 mg Tablet,Delayed Release (Dr/Ec)
40 mg PO HS
Held
simvastatin 40 mg Tablet
40 mg PO HS
Hold Instructions: Until you speak with your family doctor
Discharge Orders:
Discharge Patient (As Directed); Ordered 05/07/24
Ordered By: Connor Sanz
Discharge Date and Time
Print Language: WALLISIAN
--- NOTE | 2024-05-07 12:11 | CM ---
Patient seen bedside, patient hopeful for discharge today. Patient denies any needs upon discharge. Patient reports her will provide transportation home. CM will continue to follow for all discharge planning needs.
Plan; home no needs, to transport home.
[2024-05-07 15:00] VITALS: BP 146/80
== END 2024-05-07 15:59 | disposition home or self-care (01) ==
LOC: 4 WEST ACU 22:35
PROVIDERS: Emergency Medicine; ADMITTING PHYSICIAN Hospitalist; ATTENDING PHYSICIAN Internal Medicine; CONSULT PHYSICIAN Internal Medicine Gastroenterology; EMERGENCY PHYSICIAN Student in an Organized Health Care Education/Training Program; FAMILY PHYSICIAN Internal Medicine Gastroenterology
DX: K83.1 Obstruction of bile duct (principal); R10.11 Right upper quadrant pain; R11.2 Nausea with vomiting, unspecified; R74.01 Elevation of levels of liver transaminase levels; I10 Essential (primary) hypertension; E78.00 Pure hypercholesterolemia, unspecified; K21.9 Gastro-esophageal reflux disease without esophagitis; K82.8 Other specified diseases of gallbladder; R50.9 Fever, unspecified; R79.89 Other specified abnormal findings of blood chemistry; Z66 Do not resuscitate; Z80.0 Family history of malignant neoplasm of digestive organs; Z98.51 Tubal ligation status; Z92.3 Personal history of irradiation; Z86.010 Personal history of colon polyps
CPT/HCPCS: 74177; 74181; 74183; 76705; 78226; 80053; 82248; 83690; 85025; 85610; 96361; 96374; 96375; 99285; A9537; A9575; G0378; Q9967

== ENCOUNTER → 2024-06-22 14:42 | Outpatient (REF) | payer MEDICARE, OTHER, SELFPAY | LOC: HWRCS 14:42 | PROVIDERS: ATTENDING PHYSICIAN Internal Medicine Cardiovascular Disease; FAMILY PHYSICIAN Family Medicine | DX: R07.9 Chest pain, unspecified (principal); I10 Essential (primary) hypertension; I35.0 Nonrheumatic aortic (valve) stenosis; E78.5 Hyperlipidemia, unspecified; R00.2 Palpitations | CPT/HCPCS: 93306 ==

== ENCOUNTER → 2024-07-01 08:08 | Outpatient (REF) | payer MEDICARE, OTHER, SELFPAY | LOC: RCS 08:08 | PROVIDERS: ATTENDING PHYSICIAN Internal Medicine Cardiovascular Disease; FAMILY PHYSICIAN Family Medicine | DX: R07.9 Chest pain, unspecified (principal); R00.2 Palpitations | CPT/HCPCS: 93225; 93226 ==

== ENCOUNTER → 2024-07-31 08:10 | Outpatient (REF) | payer MEDICARE, OTHER, SELFPAY ==
[2024-07-31 09:08] LABS: ALT (SGPT) 27 U/L (0-35); AST (SGOT) 32 U/L (14-36); Albumin 4.3 g/dl (3.5-5.0); Alkaline Phosphatase 79 U/L (38-126); Total Bilirubin 0.7 mg/dl (0.2-1.3); Total Protein 6.8 g/dl (6.3-8.2)
== END ==
LOC: REG 08:10
PROVIDERS: ATTENDING PHYSICIAN Internal Medicine Gastroenterology; FAMILY PHYSICIAN Family Medicine
DX: R79.89 Other specified abnormal findings of blood chemistry (principal)
CPT/HCPCS: 36415; 80076

== ENCOUNTER 2024-08-05 06:07 | Day surgery (SDC) | payer MEDICARE, OTHER, SELFPAY ==
[2024-08-05 06:30] VITALS: BMI 22.0
[2024-08-05 06:39] VITALS: BMI 22.0
[2024-08-05 06:40] VITALS: BP 112/64
[2024-08-05 09:39] VITALS: BP 84/44
[2024-08-05 09:45] VITALS: BP 84/55
[2024-08-05 10:00] VITALS: BP 117/57
[2024-08-05 10:15] VITALS: BP 98/57
[2024-08-05 10:40] VITALS: BP 119/68
== END 2024-08-05 10:52 | disposition home or self-care (01) ==
LOC: SDS 06:07
PROVIDERS: ATTENDING PHYSICIAN Internal Medicine Gastroenterology
DX: K80.50 Calculus of bile duct without cholangitis or cholecystitis without obstruction (principal); D13.5 Benign neoplasm of extrahepatic bile ducts; K83.8 Other specified diseases of biliary tract; R79.89 Other specified abnormal findings of blood chemistry; R93.2 Abnormal findings on diagnostic imaging of liver and biliary tract; Z98.890 Other specified postprocedural states
CPT/HCPCS: 43262; 43264; 43261; 43237; 43239; 88305; 74330; 76000; C1769

== ENCOUNTER → 2024-09-04 08:30 | Outpatient (REF) | payer MEDICARE, OTHER, SELFPAY ==
[2024-09-04 09:36] LABS: % Basophils 0.7 % (0-2); % Eosinophils 2.8 % (0-6); % Immature Granulocytes 0.3 % (0-0.5); % Lymphocytes 29.1 % (20.5-51.1); % Monocytes 9.5 % (1.7-9.3); % Neutrophils 57.6 % (42.2-75.2); Absolute Eosinophils 0.2 10^3/uL (0-0.7); Absolute Lymphocytes 1.7 10^3/uL (1.2-3.4); Absolute Monocytes 0.6 10^3/uL (0.1-0.6); Absolute Neutrophils 3.4 10^3/uL (1.4-6.5); Hematocrit 39.5 % (37.0-47.0); Hemoglobin 13.5 g/dL (12.0-16.0); Mean Corp Hgb Conc. 34.2 g/dL (33.0-37.0); Mean Corpuscular Hgb 29.7 pg (27.0-31.0); Mean Platelet Volume 10.5 fL (7.4-10.4); Nucleated Red Blood Cells % 0 %; Platelet Count 297 10^3/uL (130-400); Red Blood Cell Count 4.54 10^6/uL (4.20-5.40); Red Cell Dist. Width 13.3 % (11.5-14.5)
[2024-09-04 10:01] LABS: ALT (SGPT) 21 U/L (0-35); AST (SGOT) 29 U/L (14-36); Albumin 4.2 g/dl (3.5-5.0); Alkaline Phosphatase 75 U/L (38-126); Blood Urea Nitrogen 21 mg/dl (7-17); Calcium 10.3 mg/dl (8.4-10.2); Carbon Dioxide 33 mmol/L (22-30); Chloride 102 mmol/L (98-107); Glucose 106 mg/dl (70-99); HDL Cholesterol 46 mg/dl; LDL Cholesterol, Calculated 112 mg/dl; Potassium 4.8 mmol/L (3.5-5.1); Sodium 141 mmol/L (135-145); Total Bilirubin 0.5 mg/dl (0.2-1.3); Total Cholesterol 196 mg/dl (50-199); Total Protein 6.5 g/dl (6.3-8.2); Triglyceride 193 mg/dl (10-149); Very Low Density Lipoprotein 38 mg/dl (0-30); eGFR 57.66
[2024-09-04 13:39] LABS: Glycohemoglobin (HgbA1c) 5.9 % (4.0-5.6)
== END ==
LOC: REG 08:30
PROVIDERS: ATTENDING PHYSICIAN Family Medicine
DX: I10 Essential (primary) hypertension (principal); R73.03 Prediabetes; E78.00 Pure hypercholesterolemia, unspecified
CPT/HCPCS: 36415; 80053; 80061; 83036; 84443; 85025

== ENCOUNTER 2025-01-28 00:26 | Inpatient (IN) | payer MEDICARE, OTHER, SELFPAY ==
[2025-01-27 18:50] VITALS: BP 138/79
[2025-01-27 19:10] LABS: % Basophils 0.3 % (0-2); % Immature Granulocytes 0.4 % (0-0.5); % Monocytes 3.5 % (1.7-9.3); % Neutrophils 76.8 % (42.2-75.2); Absolute Eosinophils 0.1 10^3/uL (0-0.7); Absolute Lymphocytes 1.7 10^3/uL (1.2-3.4); Absolute Monocytes 0.3 10^3/uL (0.1-0.6); Absolute Neutrophils 7.3 10^3/uL (1.4-6.5); Hematocrit 40.9 % (37.0-47.0); Hemoglobin 13.9 g/dL (12.0-16.0); Mean Corpuscular Hgb 29.8 pg (27.0-31.0); Mean Corpuscular Volume 87.8 fL (81.0-99.0); Mean Platelet Volume 10.3 fL (7.4-10.4); Nucleated Red Blood Cells % 0 %; Platelet Count 327 10^3/uL (130-400); Red Blood Cell Count 4.66 10^6/uL (4.20-5.40); Red Cell Dist. Width 12.6 % (11.5-14.5); White Blood Cell Count 9.5 10^3/uL (4.8-10.8)
[2025-01-27 19:29] LABS: ALT (SGPT) 233 U/L (0-35); AST (SGOT) 477 U/L (14-36); Albumin 4.2 g/dl (3.5-5.0); Alkaline Phosphatase 135 U/L (38-126); Blood Urea Nitrogen 22 mg/dl (7-17); Calcium 10.3 mg/dl (8.4-10.2); Carbon Dioxide 34 mmol/L (22-30); Chloride 101 mmol/L (98-107); Glucose 116 mg/dl (70-99); Lipase 1254 U/L (23-300); Potassium 4.5 mmol/L (3.5-5.1); Sodium 141 mmol/L (135-145); Total Bilirubin 1.4 mg/dl (0.2-1.3); eGFR > 60.00
[2025-01-27 19:31] VITALS: BP 124/60
[2025-01-27 19:37] VITALS: BMI 24.8
--- NOTE | 2025-01-27 19:42 | ED.GENMED ---
History of Present Illness
<YFN Kilgore - Last Filed: 01/27/25 23:01>
General
Chief Complaint: Abdominal Pain
Source: patient
Exam Limitations: none
Time Seen by Provider: 01/27/25 19:24
Nursing documentation reviewed up to this point in time: agreed with
History of Present Illness
History of Present Illness:
Patient is a 79-year-old female with past medical history of ampullary adenoma status post ERCP and ampullectomy with common bile duct/ventral pancreatic duct stents. She is followed by Dr. Hollingsworth here GI and is scheduled for ERCPs every 6 months.
She is due for ERCP February 15. She reports a 4 PM this afternoon she started with pain in the right upper quadrant which radiates to her back. She is nauseous and did vomit. She does believe that this is her gallbladder because this presents
similar to when she had abdominal pain in April 2024.
She is followed by DR Hollingsworth
Review of Systems
<YFN Kilgore - Last Filed: 01/27/25 23:01>
Review of Systems
Allergies reviewed?: Yes
All Other Systems: ROS reviewed and negative except as documented in HPI and ROS
Constitutional: Reports no symptoms; Denies fever, fatigue or chills
Respiratory: Reports no symptoms
Cardiac: Reports no symptoms
ABD/GI: Reports abdominal pain, nausea and vomiting
: Reports no symptoms
Musculoskeletal: Reports no symptoms
Skin: Reports no symptoms
Psychiatric: Reports no symptoms
Phy Exam
<YFN Kilgore - Last Filed: 01/27/25 23:01>
General Physical Exam
General Presentation: no apparent distress
General age: appears stated age
General Skin: warm and dry
General Habitus: normal
General Mental: alert
General Hydration: appears well hydrated
Gastrointestinal Exam
Gastrointestinal Exam: soft and other (ruq tenderness )
Neurological Exam
Neurological Exam: alert
Musculoskeletal Exam
Musculoskeletal Exam: full ROM
Skin Exam
Skin Exam: normal color and warm/dry
Psychiatric Exam
Psychiatric Exam: normal mood/affect
Course
<YFN Kilgore - Last Filed: 01/27/25 23:01>
Orders/Labs/Results
Orders:
Orders
01/27/25 18:55
Electrocardiogram (*1) Urgent
Reason for Study: Abdominal Pain
EKG- Treatment ONCE
01/27/25 18:58
Complete Blood Count/With Diff Urgent
Comprehensive Metabolic Panel Urgent
Lipase Urgent
01/27/25 18:59
Troponin I Urgent
01/27/25 19:54
CT Abd/pelvis W Iv Cont Urgent
Comment:
Reason For Exam: ruq pain hx of ampullaectomy
01/27/25 19:55
0.9% Sodium Chloride 1000 ml [Nss] 1,000 ml IV BOLUS
HYDROmorphone [Dilaudid] 0.5 mg IV NOW STA
01/27/25 19:56
Ondansetron Injectable [Zofran] 4 mg IV NOW STA
Abnormal Lab Results
01/27/25
18:58
Absolute Neuts (auto) 7.3 H 10^3/uL
(1.4-6.5)
Neutrophils % 76.8 H %
(42.2-75.2)
Lymphocytes % 18.0 L %
(20.5-51.1)
Carbon Dioxide 34 H mmol/L
(22-30)
BUN 22 H mg/dl
(7-17)
Glucose 116 H mg/dl
(70-99)
Calcium 10.3 H mg/dl
(8.4-10.2)
Total Bilirubin 1.4 H mg/dl
(0.2-1.3)
AST 477 H U/L
(14-36)
ALT 233 H U/L
(0-35)
Alkaline Phosphatase 135 H U/L
(38-126)
Lipase 1254 H* U/L
(23-300)
01/27/25 18:58
01/27/25 18:58
Vital Signs
Initial and Last Documented VS:
Initial Vital Signs
Temp Pulse Resp BP Pulse Ox
98.3 F 93 18 138/79 97
01/27/25 18:50 01/27/25 18:50 01/27/25 18:50 01/27/25 18:50 01/27/25 18:50
Last Documented Vital Signs
Temp Pulse Resp BP Pulse Ox
98.3 F 101 24 138/69 91
01/27/25 18:50 01/27/25 23:00 01/27/25 23:00 01/27/25 23:00 01/27/25 23:00
<Abelardo Amin, - Last Filed: 01/27/25 23:17>
Orders/Labs/Results
Orders:
Orders
01/27/25 18:55
Electrocardiogram (*1) Urgent
Reason for Study: Abdominal Pain
EKG- Treatment ONCE
01/27/25 18:58
Complete Blood Count/With Diff Urgent
Comprehensive Metabolic Panel Urgent
Lipase Urgent
01/27/25 18:59
Troponin I Urgent
01/27/25 19:54
CT Abd/pelvis W Iv Cont Urgent
Comment:
Reason For Exam: ruq pain hx of ampullaectomy
01/27/25 19:55
0.9% Sodium Chloride 1000 ml [Nss] 1,000 ml IV BOLUS
HYDROmorphone [Dilaudid] 0.5 mg IV NOW STA
01/27/25 19:56
Ondansetron Injectable [Zofran] 4 mg IV NOW STA
Abnormal Lab Results
01/27/25
18:58
Absolute Neuts (auto) 7.3 H 10^3/uL
(1.4-6.5)
Neutrophils % 76.8 H %
(42.2-75.2)
Lymphocytes % 18.0 L %
(20.5-51.1)
Carbon Dioxide 34 H mmol/L
(22-30)
BUN 22 H mg/dl
(7-17)
Glucose 116 H mg/dl
(70-99)
Calcium 10.3 H mg/dl
(8.4-10.2)
Total Bilirubin 1.4 H mg/dl
(0.2-1.3)
AST 477 H U/L
(14-36)
ALT 233 H U/L
(0-35)
Alkaline Phosphatase 135 H U/L
(38-126)
Lipase 1254 H* U/L
(23-300)
01/27/25 18:58
01/27/25 18:58
Vital Signs
Initial and Last Documented VS:
Initial Vital Signs
Temp Pulse Resp BP Pulse Ox
98.3 F 93 18 138/79 97
01/27/25 18:50 01/27/25 18:50 01/27/25 18:50 01/27/25 18:50 01/27/25 18:50
Last Documented Vital Signs
Temp Pulse Resp BP Pulse Ox
98.3 F 101 24 138/69 91
01/27/25 18:50 01/27/25 23:00 01/27/25 23:00 01/27/25 23:00 01/27/25 23:00
<YFN Kilgore - Last Filed: 01/27/25 23:01>
MDM/Problems Addressed
Differential Diagnosis Includes:
not limited to:
Bile duct stone, pancreatitis, acute cholecystitis
MDM/Problems Addressed:
As documented patient is a 79-year-old female with history of ampullary adenoma status post ampullectomy with history of stent however no stents in place now. She is followed by Dr. Hollingsworth here GI. She presented with right upper quadrant pain and
presented with an elevated lipase of 1254 with a normal white count. She denies any fevers and is afebrile. She is medicated for pain and nausea feeling much better. CAT scan is negative for acute cholecystitis normal caliber common bile duct
with normal-appearing appendix no acute inflammatory process patient will need admission for follow-up.
<YFN Kilgore - Last Filed: 01/27/25 23:01>
*Critical Care Note
Total Time (30-74mins, 75-104mins- exclusive of procedures): Not Applicable
ED Attending Note
<YFN Kilgore - Last Filed: 01/27/25 23:01>
-
Portions of this chart may have been created with voice recognition software.� Occasional wrong word or��sound alike� substitutions may have occurred due to the inherent limitations of voice recognition software.
<Abelardo Amin DO - Last Filed: 01/27/25 23:17>
ED Attending Note
I performed the substantive portion of visit, reviewed & personally made and approve the management plan that is documented in note by myself or CINDY.: Yes
Discharge Plan
Departure
Patient Disposition: Admit
Date of Disposition: 01/27/25
Time of Disposition: 23:13
Admit to: Med/Surg
Admit to doctor: hospitalist
Presentation/result/management discussed w/ accepting MD/DO: Hospitalist
Patient with high blood pressure during this ER visit?: Yes
Condition: Fair
Covid-19: Not Applicable
Discharge Problem:
Pancreatitis
Prescriptions:
No Action
lisinopril-hydrochlorothiazide 20-12.5 mg Tablet
1 tab PO HS
pantoprazole 40 mg Tablet,Delayed Release (Dr/Ec)
40 mg PO HS
cholecalciferol (vitamin D3) [Vitamin D3] 50 mcg (2,000 unit) Capsule
1,200 mcg PO DAILY
acetaminophen 325 mg Tablet
650 mg PO Q4HPRN PRN (Reason: mild pain/IRVIN/temp> 100.4F) 7 Days Qty: 30 0RF
Theragen Tablet
1 tab PO QPM
simvastatin [Zocor] 40 mg Tablet
40 mg PO HS
metoprolol succinate [Toprol XL] 25 mg Tablet Extended Release 24 Hr
25 mg PO QPM
PreserVision AREDS 2,148 mcg-113 mg-45 mg-17.4mg Tablet
2 tab PO QPM
Referrals:
Gloria Brandt MD [Family Provider] -
Interventions
Interventions:
*Risk Screen - Suicide Last Done: 01/27/25 18:50
*General Assessment Last Done: 01/27/25 18:50
*Neglect/Abuse Screening Last Done: 01/27/25 18:50
*ED- Fall Risk Assessment Last Done: 01/27/25 19:37
*ED COVID-19 Vaccine History Last Done: 01/27/25 19:37
[facility]-Hpvw[facility]-Horevl[facility] Assessment Last Done: 01/27/25 19:37
Discharge Date and Time
Print Language: TONGAN
[2025-01-27 19:53] LABS: Troponin I < 0.012 ng/ml
[2025-01-27 20:00] VITALS: BP 140/63
[2025-01-27] MEDS: ZOFRAN 4 MG IV (20:14)
[2025-01-27] MEDS: NSS 1000 IV (20:15)
[2025-01-27] MEDS: DILAUDID 0.5 MG IV (20:15)
[2025-01-27 21:13] VITALS: BP 151/67
[2025-01-27 22:00] VITALS: BP 115/55
[2025-01-27 23:00] VITALS: BP 138/69
--- NOTE | 2025-01-27 23:07 | HPS.HSE ---
Addendum entered and electronically signed by Vishnu Block DO 01/28/25 00:02:
Patient seen and examined independently. Agree with findings and plan as set forth by Kirsten Klein PA-C.
Patient is a 79y F with PMH significant for hypertension and ampullary adenoma who presents to ED complaining of RUQ pain. Patient states that she has been having intermittent, brief RUQ pain for the past few weeks. This afternoon she developed
more severe pain around 4 PM. The pain did not resolve after a short time as it usually does. She denies any associated fevers / chills. She did have an episode of nausea at home prior to presenting to the ED. Patient has a complicated history
of multiple ERCPs, ampulla resection (x 2).
Ass:
RUQ Pain
Abnormal LFTs
Ampullary Adenoma
Benign Hypertension
GERD
Plan:
Admit for further evaluation and treatment.
CT done in the ED with no definitive / acute abnormality.
Patient states that symptoms are similar to prior episode that was attributed to biliary 'sludge' - this could certainly be the case.
Follow for any new / recurrent symptoms.
Follow LFTs for changes.
GI eval for additional recommendations.
? consideration for eventually cholecystectomy if symptoms felt to be due to biliary colic / sludge.
Original Note:
Family Physician
-
Family Physician: Gloria Brandt MD
Chief Complaint
-
Abdominal Pain
History of Present Illness
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 Patient reports right upper quadrant
pain that began this morning. She admits to associated vomiting. She denies fevers, sweats or chills.
Medical History
Past Medical History
Past Medical History: Reports Other
Additional Past Medical History:
Ampullary Adenoma s/p ERCP and Ampullectomy with Prior CBD / Ventral Pancreatic Duct Stent
Essential Hypertension
Hyperlipidemia
GERD
Past Surgical History: Reports Other
Additional Past Surgical History:
ERCP
Social History
Tobacco: Non-smoker
Alcohol: Occasional
Drug: None
Family History
Family History: Not pertinent
Allergies / Home Medications
Allergies reflects when Allergies were last updated in [facility].
Home Medications with original date entered in [facility]
Allergy/Medication List:
Allergies
Allergy/AdvReac Type Severity Reaction Status Date / Time
No Known Allergies Allergy Verified 01/27/25 18:50
Home Medications
lisinopril 20 mg-hydrochlorothiazide 12.5 mg tablet 1 tab PO HS Blood Pressure 03/11/23
pantoprazole 40 mg tablet,delayed release 40 mg PO HS Gastrointestinal Issue 03/11/23
acetaminophen 325 mg tablet 650 mg (2 x 325 mg) PO Q4HPRN PRN mild pain/IRVIN/temp> 100.4F 7 days #30 tabs 05/07/24
cholecalciferol (vitamin D3) 50 mcg (2,000 unit) capsule (Vitamin D3) 1,200 mcg PO DAILY 08/05/24
metoprolol succinate 25 mg tablet,extended release 24 hr (Toprol XL) 25 mg PO QPM 01/27/25
simvastatin 40 mg tablet (Zocor) 40 mg PO HS 01/27/25
therapeutic multivitamin 1 tab PO QPM 01/27/25
vitamins A,C,Q-fcnw-iswgck 2,148 mcg-113 mg-45 mg-17.4 mg tablet (PreserVision AREDS) 2 tab PO QPM 01/27/25
Review of Systems
-
A 12 point ROS was completed and negative except as noted: Yes
Constitutional: Denies Fever or Chills
Respiratory: Denies Cough or Trouble Breathing
Cardiac: Denies Chest Pain or Palpitations
Abdomen/GI: Reports Abdominal Pain, Nausea and Vomiting; Denies Diarrhea
Physical Exam
Vital Signs
Vital Signs
Temp Pulse Resp BP Pulse Ox
98.3 F 100 19 115/55 95
01/27/25 18:50 01/27/25 22:15 01/27/25 22:00 01/27/25 22:00 01/27/25 20:30
Physical Exam
General: Comfortable and Conversant
HEENT: Anicteric and Moist mucous membranes
Respiratory: Clear and Non Labored Respirations
Cardiac: S1/S2 and Regular Rhythm
GI: Soft and Tender (Right upper quadrant without rebound or guarding)
Rectal: Deferred by Provider
Musculoskeletal: No Clubbing, No Cyanosis and No Edema
Skin: Warm and Dry
Neuro: Awake, Alert, Oriented and Nonfocal/grossly intact
Psych: Calm
Laboratory Results
-
01/27/25 18:58
01/27/25 18:58
Laboratory Results
Total Bilirubin 1.4 mg/dl (0.2-1.3) H 01/27/25 18:58
AST 477 U/L (14-36) H 01/27/25 18:58
ALT 233 U/L (0-35) H 01/27/25 18:58
Alkaline Phosphatase 135 U/L (38-126) H 01/27/25 18:58
Troponin I < 0.012 ng/ml 01/27/25 18:59
Lipase 1254 U/L (23-300) H* 01/27/25 18:58
Data Reviewed
-
CT Scan: Report Reviewed by me
Lab Data: Labs Reviewed by me
Impression/Plan
-
Abdominal Pain with elevated LFTS and lipase, suspect CBD obstruction possibly choledocholithiasis vs recurrent ampullary adenoma
-Consult GI
-Continue NPO/IVFs
-Defer decision on further imaging such as MRI vs ERCP to GI
Essential Hypertension
-Continue lisinopril and metoprolol
-Hold HCTZ
Hyperlipidemia
-Hold simvastatin
GERD
-Continue Protonix
DVT proph: Lovenox
Code Status: Full Code
[2025-01-28] VITALS (9 sets, daily range): BP systolic 103–139; BP diastolic 49–72; BMI 24.4; BMI 24.5
--- NOTE | 2025-01-28 02:41 | PTCARENOTE ---
Addendum entered by Camryn Blackwell RN 01/28/25 02:44:
NO IVF ordered, Updated YFN Wilder. See MAR for orders.
Original Note:
Received patient from ER. AAOx3. No pain. NPO. Stable vitals. POC reviewed with patient.
[2025-01-28] MEDS: NSS 1000 IV (02:54)
[2025-01-28 06:54] LABS: Hemoglobin 11.3 g/dL (12.0-16.0); Mean Corp Hgb Conc. 34.2 g/dL (33.0-37.0); Mean Corpuscular Hgb 29.7 pg (27.0-31.0); Mean Corpuscular Volume 86.6 fL (81.0-99.0); Mean Platelet Volume 10.4 fL (7.4-10.4); Platelet Count 260 10^3/uL (130-400); Red Blood Cell Count 3.81 10^6/uL (4.20-5.40); Red Cell Dist. Width 12.6 % (11.5-14.5); White Blood Cell Count 9.7 10^3/uL (4.8-10.8)
--- NOTE | 2025-01-28 07:52 | W.PN.HOSP.TC ---
Today's Communication/Plan
-
Antibiotics, blood cultures given biliary obstruction
EUS/ERCP with Dr. Hollingsworth today
Assessment / Plan
Assessment / Plan
Physical Exam
General: Not in acute distress
HEENT: Normocephalic. Moist mucous membranes
Respiratory: Clear to Auscultation Bilaterally
Cardiac: S1/S2 and Regular Rhythm
GI: Positive bowel sounds. Soft and Tender (Right upper quadrant without rebound or guarding)
Musculoskeletal: No Cyanosis and No Edema
Skin: Warm and Dry
Neuro: Awake, Alert, Oriented and Nonfocal/grossly intact
Psych: Calm
Assessment/Plan
The pain did not resolve after a short time as it usually does. She denies any associated fevers / chills. She did have an episode of nausea at home prior to presenting to the ED. Patient has a complicated history of multiple ERCPs, ampulla
resection (x 2).
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 Patient stated that she had been
having intermittent, brief RUQ pain for the previous few weeks prior to arrival, and on the afternoon of presentation, she developed more severe pain around 4 PM. She admitted to associated vomiting. She denies fevers, sweats or chills.
RUQ Pain
Abnormal LFTs
Abdominal Pain with elevated LFTS and lipase, suspect CBD obstruction possibly choledocholithiasis vs recurrent ampullary adenoma
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 Due for repeat EGD on 02/15/2025
Prior history of choledocholithiasis status post ERCP (last one performed 08/05/2024)
History of gallstones and gallbladder sludge
Elevated lipase
-Continue NPO/IVFs
-EUS/ERCP today with enrollment specialist Dr. Hollingsworth
-CT done in the ED with no definitive / acute abnormality.
-Patient states that symptoms are similar to prior episode that was attributed to biliary 'sludge' - this could certainly be the case.
-Follow for any new / recurrent symptoms.
-Follow LFTs for changes.
-GI eval for additional recommendations.
-? consideration for eventually cholecystectomy if symptoms felt to be due to biliary colic / sludge.
-Antibiotics and blood cultures as per my [facility] Text communication with enrollment specialist today
Benign Hypertension
-Continue lisinopril and metoprolol
-Hold HCTZ
Hyperlipidemia
-Hold Simvastatin
GERD
-Continue Protonix
DVT Prophylaxis: Lovenox
Code Status: Full Code
Anticipated Discharge: > 48 hours
Subjective/Interval History
-
Date of Service: January 28, 2025
Patient was seen and examined. Her abdominal pain and nausea have improved.
Objective Data
-
Labs:
Laboratory Results
01/28/25
06:09
WBC 9.7
Hgb 11.3 L
Hct 33.0 L
Plt Count 260 D
Sodium Pending
Potassium Pending
Chloride Pending
Carbon Dioxide Pending
BUN Pending
Creatinine Pending
Glucose Pending
Calcium Pending
Total Bilirubin Pending
AST Pending
ALT Pending
Alkaline Phosphatase Pending
Vital Signs:
Vital Signs
Temp Pulse Resp BP Pulse Ox
99.0 F 94 14 124/54 94
01/28/25 02:13 01/28/25 02:13 01/28/25 02:13 01/28/25 02:13 01/28/25 02:45
[2025-01-28] MEDS: ZESTRIL 10 MG PO (08:25)
[2025-01-28] MEDS: TYLENOL 650 MG PO (08:28)
--- NOTE | 2025-01-28 08:57 | CON.GI ---
Addendum entered and electronically signed by Argenis Melendez DO 01/28/25 11:50:
Patient seen and examined independently of YFN. I agree with her note with my additions below
Yamini is a 79-year-old female known to Dr. Hollingsworth who came in with acute onset abdominal pain and nausea that has since resolved. Last episode was last night. Minimal tenderness on exam. Her history dates back to 2022 where she underwent an
endoscopic ampullectomy for an adenoma in May 2023. She underwent 2 further endoscopies in 2023 for residual adenoma at the ampulla and underwent an ERCP with a biliary stent.
In April 2024 she came back in with bump in her LFTs underwent significant imaging which was all unremarkable including MRCP CT scan HIDA scan and our service felt like it was biliary sludge that passed causing transient obstruction. Her most
recent endoscopic intervention was in July 2024 including an upper EUS with Dr. Hollingsworth. She had 1 stone in the common bile duct as well as sludge visualized in the gallbladder body and had a remaining portion of the adenoma again removed from the
ampulla.
Patient states she has never spoken to general surgery about a cholecystectomy.
This time she comes in with acute onset abdominal pain with a total bilirubin of 1.4, AST 477, alkaline phosphatase 135, ALT 233 and a lipase of 1200. Currently she is comfortable. Her last pain medication was given yesterday. Her white count is
9.7 and today her liver enzymes did go up significantly with a total bilirubin of 2.4, AST 1300, ALT 1100, alkaline phosphatase 152.
Her imaging shows mild distention of the intrahepatic bile ducts and pneumobilia consistent with previous interventions., Bile duct is 5.7 mm. Gallbladder is mildly distended with nodular thickening along the gallbladder margin. No evidence of
acute cholecystitis.
Plan: N.p.o. for EUS/ERCP today
Patient will need general surgery consult at some point for cholecystectomy especially in the setting of prior choledocholithiasis back in July and potentially again this admission which will be determined soon
She is not currently on any antibiotics. Will check blood cultures and start Zosyn empirically
discussed with primary team and RN
Original Note:
Consultation
-
Date/Time Consultation Requested: 01/28/25206
Date/Time Consultation Performed: 01/28/25 0842
Requesting Provider: KEE Anne
Performing Provider: Dr. Melendez/YFN Huynh
Reason for Consultation: abd pain, elevated LFTs
Medical History
Chief Complaint / HPI
Chief Complaint: Abdominal pain
History of Present Illness:
Patient is a 70-year-old female with past medical history of ampullary adenoma (known to Dr. Hollingsworth) s/p endoscopic ampullectomy (06/03/23), ERCP and biliary pancreatic stent placement on 02/05/24s/p biliary stent removal 02/24/24, EUS performed on
08/05/2024 showing stone in CBD. Hyperechoic material consistent with sludge in gallbladder body. ERCP was performed on the same day Defect consistent with stone was seen on cholangiogram, the common bile duct was dilated. Complete removal
accomplished by balloon extraction. Sphincterotomy performed. Biliary tree was swept and debris was found.. CBD dilated. Complete removal of stone accomplished by balloon extraction. That showed polypoid lesion noted after balloon sweep,
removed with cold snare. Polypectomy removed. Biopsies taken and ampullectomy scar (adenoma) Coagulation for destruction of remaining portion of the area using APC. Repeat Endoscopic exam recommended in 6 months and was scheduled for 02/15/25.
Patient presented to the emergency room on 01/27/2025 with acute onset of abdominal pain in the right upper quadrant that radiated through the back associated with nausea with 2 episodes of bilious vomiting. Patient was found to have elevated LFTs
upon arrival, total bilirubin 1.4, AST of 477, ALT of 233 and alk phos of 135 and lipase of 1254. We are asked to evaluate for the same. The patient states that she had bilirubinuria this morning. No acholic stools. Tmax 99.0 this morning.
Patient states that she feels like she has a fever currently. She did receive pain medication last evening however has not required any since. Denies any melena, hematochezia, dysphagia or odynophasia. No early satiety or unintentional weight
loss. No aspirin ibuprofen Motrin or Aleve use. Did require Tylenol. As stated prior she does have an elective EGD scheduled on 02/15/2025 to evaluate ampullary area for prior adenoma. We are still waiting on repeat labs this morning. He of the
abdomen and pelvis with IV contrast showed mild intrahepatic ductal dilatation with pneumobilia related to previous ampullectomy. CBD normal at 5.7 mm. Subtle nodular thickening along gallbladder margin raising possibility of adenomyomatosis. No
definite CT evidence of acute cholecystitis. No acute inflammatory process within the abdomen or pelvis. Patient has been given 1 L of normal saline, continues on normal saline at 100 cc an hour.
Past Medical History
Past Medical History: GERD, HTN, Hypercholesterolemia and Other (Ampullary adenoma, colon polyps, duodenal polyps)
Past Surgical History: Other (endoscopic ampullectomy)
Social History
Tobacco: Non-Smoker
Alcohol: Occasional
Drug: None
Personal:
Living: With Family
Family History
Family History: Other (Father with history of esophageal cancer, no family history of colon cancer, no other GI malignancies or IBD)
Allergies / Home Medications
Allergy/AdvReac Type Severity Reaction Status Date / Time
No Known Allergies Allergy Verified 01/27/25 18:50
�Medication �Instructions �Recorded
lisinopril 20 1 tab PO HS Blood Pressure 03/11/23
mg-hydrochlorothiazide 12.5 mg
tablet
pantoprazole 40 mg tablet,delayed 40 mg PO HS Gastrointestinal Issue 03/11/23
release
acetaminophen 325 mg tablet 650 mg (2 x 325 mg) PO Q4HPRN PRN 05/07/24
mild pain/IRVIN/temp> 100.4F 7 days
#30 tabs
cholecalciferol (vitamin D3) 50 1,200 mcg PO DAILY 08/05/24
mcg (2,000 unit) capsule (Vitamin
D3)
metoprolol succinate 25 mg 25 mg PO QPM 01/27/25
tablet,extended release 24 hr
(Toprol XL)
simvastatin 40 mg tablet (Zocor) 40 mg PO HS 01/27/25
therapeutic multivitamin 1 tab PO QPM 01/27/25
vitamins A,C,R-ypor-rfghgu 2,148 2 tab PO QPM 01/27/25
mcg-113 mg-45 mg-17.4 mg tablet
(PreserVision AREDS)
Review of Systems
-
All other systems: A 12 pt ROS was Negative except as stated above in HPI
Vital Signs
Temp Pulse Resp BP Pulse Ox
99.0 F 83 16 118/58 100
01/28/25 02:13 01/28/25 08:00 01/28/25 08:00 01/28/25 08:00 01/28/25 08:00
Physical Exam
Exam
General: No Apparent Distress
HEENT: Anicteric
Respiratory: Clear
Cardiac: Regular Rhythm
GI: Soft, Non Distended, Normal Bowel Sounds and Tender (Mild right upper quadrant more periumbilical tenderness)
Musculoskeletal: No Edema
Skin: Warm and Dry
Psych: Calm
Results
WBC 9.7 10^3/uL (4.8-10.8) 01/28/25 06:09
Hgb 11.3 g/dL (12.0-16.0) L 01/28/25 06:09
Hct 33.0 % (37.0-47.0) L 01/28/25 06:09
MCV 86.6 fL (81.0-99.0) 01/28/25 06:09
Plt Count 260 10^3/uL (130-400) D 01/28/25 06:09
Absolute Neuts (auto) 7.3 10^3/uL (1.4-6.5) H 01/27/25 18:58
Sodium 141 mmol/L (135-145) 01/27/25 18:58
Potassium 4.5 mmol/L (3.5-5.1) 01/27/25 18:58
Chloride 101 mmol/L (98-107) 01/27/25 18:58
Carbon Dioxide 34 mmol/L (22-30) H 01/27/25 18:58
BUN 22 mg/dl (7-17) H 01/27/25 18:58
Creatinine 0.9 mg/dL (0.6-1.0) 01/27/25 18:58
Calcium 10.3 mg/dl (8.4-10.2) H 01/27/25 18:58
Total Bilirubin 1.4 mg/dl (0.2-1.3) H 01/27/25 18:58
AST 477 U/L (14-36) H 01/27/25 18:58
ALT 233 U/L (0-35) H 01/27/25 18:58
Alkaline Phosphatase 135 U/L (38-126) H 01/27/25 18:58
Lipase 1254 U/L (23-300) H* 01/27/25 18:58
Diagnostic Image Results:
CT abdomen and pelvis with IV contrast:
Mild intrahepatic bile duct distention with pneumobilia related to previous ampullectomy. The common bile duct is normal in caliber measuring 5.7 mm.
Subtle nodular thickening along the gallbladder margin, raising the possibility of adenomyomatosis. No definite CT evidence of acute cholecystitis.
No acute inflammatory process within the abdomen or pelvis.
No bowel obstruction.
No obstructive uropathy.
Prior GI Procedures:
08/05/2024 ERCP (Dr. Hollingsworth): - Prior endoscopic papillectomy
- Polypectomy was performed. Resected and retrieved.
- Biopsies were taken with a cold forceps for
histology in the ampulla.
- Destruction of remaining portion of lesion in the
ampulla with argon plasma coagulation (APC) was
performed.
- A filling defect consistent with a stone was seen on
the cholangiogram.
- The common bile duct was mildly dilated.
- The examination was suspicious for
choledocholithiasis. Complete removal was accomplished
by balloon extraction.
- A biliary sphincterotomy was performed.
- The biliary tree was swept and debris was found.
08/05/2024 EUS (Dr. Hollingsworth): - One stone was visualized endosonographically in the
common bile duct.
- Hyperechoic material consistent with sludge was
visualized endosonographically in the gallbladder body.
- There was no sign of significant pathology in the
pancreatic head.
- No specimens collected.
02/24/2024 EGD (Dr. Hollingsworth): - Plastic biliary pancreatic stents in the duodenum.
Removed.
02/05/2024 ERCP (Dr. Hollingsworth): - The major papilla appeared to have a residual /
recurrent polypoid ampullary adenoma.
- Prior endoscopic papillectomy
- One plastic stent was placed into the common bile
duct.
- One plastic stent was placed into the ventral
pancreatic duct.
02/05/2024 EGD (Dr. Hollingsworth): - Normal esophagus.
- No gross lesions in the entire stomach. Biopsied.
- Normal duodenal bulb and first portion of the
duodenum.
- Duodenal diverticulum.
- Mass (suspected recurrent / residual adenoma) in the
ampulla. Treated with hot biopsy forceps. Treated with
argon plasma coagulation (APC).
- Mucosal resection was performed. Resection and
retrieval were complete.
12/30/2023 EGD (Dr. Hollingsworth): - A single duodenal polypoid lesion concerning for
possible residual/recurrent adenoma. Biopsied.
06/19/2023 EGD (Dr. Hollingsworth): - Biliary pancreatic stents in the duodenum. Removed.
- Erythematous duodenopathy at the previous endoscopic
ampullectomy area.
06/03/[address] Hollingsworth): - The major papilla appeared to have a mass.
- The major papilla appeared to be bulging.
- Destruction of remaining portion of lesion in the
area of the papilla with argon plasma coagulation
(APC) was performed.
- The entire main bile duct was mildly dilated.
- Snare papillectomy of the major papilla was
performed. Resection and retrieval were complete.
- A biliary sphincterotomy was performed.
- One plastic stent was placed into the common bile
duct.
- One plastic stent was placed into the ventral
pancreatic duct.
06/03/2023 EUS (Dr. Hollingsworth): - A mass was found in the ampulla, previous biopsy
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
This lesion had intraductal portion measuring 12 mm.
- There was dilation in the common bile duct which
measured up to 11 mm.
- Pancreatic parenchymal abnormalities consisting of
hyperechoic strands and hyperechoic foci were noted in
the pancreatic head and pancreatic body.
- No specimens collected.
03/11/2023 EUS (Dr. Hollingsworth): - Normal esophagus.
- Erythematous mucosa in the gastric body. Biopsied.
- A prominent ampulla, suspicious for ampullary
adenoma. Biopsied.
- Pancreatic parenchymal abnormalities consisting of
hyperechoic strands and hyperechoic foci were noted in
the pancreatic body.
- There was no sign of significant pathology in the
pancreatic head.
- There was dilation in the common bile duct which
measured up to 13 mm.
- A soft tissue lesion / mass was found in the
ampulla, extending to terminal end of common bile duct.
- There was no evidence of significant pathology in
the left lobe of the liver.
02/23/2021 colonoscopy (Dr. Cho): - One 9 mm polyp in the sigmoid colon, removed with a
hot snare. Resected and retrieved. Injected.
- The examined portion of the ileum was normal.
03/06/2016 colonoscopy (Dr. Cho): - Two 4 to 5 mm polyps in the sigmoid colon and in the
descending colon. Biopsied.
- The examined portion of the ileum was normal.
Assessment / Plan
-
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
08/05/2024 showing stone in CBD. Hyperechoic material consistent with sludge in gallbladder body. ERCP was performed on the same day Defect consistent with stone was seen on cholangiogram, the common bile duct was dilated. Complete removal
accomplished by balloon extraction. Sphincterotomy performed. Biliary tree was swept and debris was found.. CBD dilated. Complete removal of stone accomplished by balloon extraction. That showed polypoid lesion noted after balloon sweep,
removed with cold snare. Polypectomy removed. Biopsies taken and ampullectomy scar (adenoma) Coagulation for destruction of remaining portion of the area using APC. Repeat Endoscopic exam recommended in 6 months and was scheduled for 02/15/25.
Patient presented to the emergency room on 01/27/2025 with acute onset of abdominal pain in the right upper quadrant that radiated through the back associated with nausea with 2 episodes of bilious vomiting. Patient was found to have elevated LFTs
upon arrival, total bilirubin 1.4, AST of 477, ALT of 233 and alk phos of 135 and lipase of 1254. We are asked to evaluate for the same.
Impression:
RUQ pain
Elevated LFTs
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 Due for repeat EGD on 02/15/2025
Prior history of choledocholithiasis status post ERCP (last one performed 08/05/2024)
History of gallstones and gallbladder sludge
Elevated lipase
Plan:
- N.p.o., IV fluids
- Trend LFTs, currently awaiting repeat labs this a.m.
- Will review imaging with Dr. Hollingsworth, possible ERCP today
- To consider antibiotics if patient is to develop fever.
- Further recommendations to be forthcoming
-
-
Thank you for consultation and allowing me to participate in the patient's care. Please call the donor technician GI physician during the after hours with any questions or concerns.
[2025-01-28 09:45] LABS: Albumin 3.7 g/dl (3.5-5.0); Alkaline Phosphatase 152 U/L (38-126); Blood Urea Nitrogen 16 mg/dl (7-17); Calcium 8.9 mg/dl (8.4-10.2); Carbon Dioxide 25 mmol/L (22-30); Estimated Creatinine Clearance 38 ml/min; Glucose 119 mg/dl (70-99); Total Bilirubin 2.4 mg/dl (0.2-1.3); Total Protein 5.7 g/dl (6.3-8.2); eGFR > 60.00
[2025-01-28] MEDS: LR 1000 IV ×3 (10:17→23:50)
[2025-01-28 11:43] LABS: ALT (SGPT) 1103 U/L (0-35); AST (SGOT) 1352 U/L (14-36); Chloride 104 mmol/L (98-107); Potassium 4.3 mmol/L (3.5-5.1); Sodium 140 mmol/L (135-145)
[2025-01-28] MEDS: ZOSYN 50 IV ×2 (14:58→23:33)
--- NOTE | 2025-01-28 15:11 | CM ---
Patient seen at bedside
IA completed
ERCP today
Lives with in [facility] community, 1st floor bed/bath, 1 step to enter
PLOF: independent
DME: [facility]
Denies VN/Rehab
PCP: Gloria Brandt
Pharmacy: [facility], [address], [place]
PLAN: home, no current needs, when medically stable. CM to follow
--- NOTE | 2025-01-28 16:53 | PTCARENOTE ---
patient medicated with PRN Tylenol for c/o right side headache this am with good relief. has periumbilical and ruq tenderness, independent to br, for EUS/ERCP, vss, will continue to monitor.
--- NOTE | 2025-01-28 16:55 | PTCARENOTE ---
at 11:45, Dr. Olivera and Dr. Melendez made aware of AST level of 1352 and ALT level of 1103. no new orders obtained at that time.
[2025-01-28] MEDS: TOPROL XL PO (17:48)
[2025-01-28] MEDS: LOVENOX 40 MG SC (17:49)
--- NOTE | 2025-01-28 23:30 | PTCARENOTE ---
GI transferred pt to procedure via bed. Pt returned approx 2330. Pt aox3, VSS, and resting comfortably. Call rose within reach. Daughter at bedside received report with nursing upon transfer. Will continue to monitor pt and post procedure
guidelines.
[2025-01-28] MEDS: PROTONIX 40 MG PO (23:31)
[2025-01-28] MEDS: LR IV (23:34)
[2025-01-29] VITALS (8 sets, daily range): BP systolic 107–141; BP diastolic 55–71; BMI 25.5
[2025-01-29] MEDS: ZOSYN 50 IV ×4 (04:39→20:45)
[2025-01-29] MEDS: LR 1000 IV ×2 (04:40→13:15)
[2025-01-29 06:33] LABS: % Basophils 0.1 % (0-2); % Immature Granulocytes 0.3 % (0-0.5); % Lymphocytes 8.3 % (20.5-51.1); % Monocytes 2.9 % (1.7-9.3); % Neutrophils 88.4 % (42.2-75.2); Absolute Lymphocytes 0.6 10^3/uL (1.2-3.4); Absolute Monocytes 0.2 10^3/uL (0.1-0.6); Absolute Neutrophils 6.6 10^3/uL (1.4-6.5); Hematocrit 30.6 % (37.0-47.0); Hemoglobin 10.7 g/dL (12.0-16.0); Mean Corpuscular Hgb 29.6 pg (27.0-31.0); Mean Corpuscular Volume 84.8 fL (81.0-99.0); Mean Platelet Volume 10.4 fL (7.4-10.4); Nucleated Red Blood Cells % 0 %; Platelet Count 219 10^3/uL (130-400); Red Blood Cell Count 3.61 10^6/uL (4.20-5.40); Red Cell Dist. Width 12.5 % (11.5-14.5); White Blood Cell Count 7.5 10^3/uL (4.8-10.8)
[2025-01-29 07:31] LABS: ALT (SGPT) 589 U/L (0-35); AST (SGOT) 404 U/L (14-36); Albumin 2.8 g/dl (3.5-5.0); Alkaline Phosphatase 138 U/L (38-126); Blood Urea Nitrogen 14 mg/dl (7-17); Calcium 8.6 mg/dl (8.4-10.2); Carbon Dioxide 24 mmol/L (22-30); Chloride 105 mmol/L (98-107); Estimated Creatinine Clearance 38 ml/min; Glucose 159 mg/dl (70-99); Potassium 3.8 mmol/L (3.5-5.1); Sodium 137 mmol/L (135-145); Total Bilirubin 3.2 mg/dl (0.2-1.3); Total Protein 4.8 g/dl (6.3-8.2); eGFR > 60.00
[2025-01-29] MEDS: ZESTRIL 10 MG PO (08:05)
--- NOTE | 2025-01-29 09:31 | W.PN.HOSP.TC ---
Assessment / Plan
Assessment / Plan
Physical Exam
General: Not in acute distress
HEENT: Normocephalic. Moist mucous membranes
Respiratory: Clear to Auscultation Bilaterally
Cardiac: S1/S2 and Regular Rhythm
GI: Positive bowel sounds. Soft and Tender (Right upper quadrant without rebound or guarding)
Musculoskeletal: No Cyanosis and No Edema
Skin: Warm and Dry
Neuro: Awake, Alert, Oriented and Nonfocal/grossly intact
Psych: Calm
Assessment/Plan
The pain did not resolve after a short time as it usually does. She denies any associated fevers / chills. She did have an episode of nausea at home prior to presenting to the ED. Patient has a complicated history of multiple ERCPs, ampulla
resection (x 2).
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 Patient stated that she had been
having intermittent, brief RUQ pain for the previous few weeks prior to arrival, and on the afternoon of presentation, she developed more severe pain around 4 PM. She admitted to associated vomiting. She denies fevers, sweats or chills.
RUQ Pain
Abnormal LFTs
Abdominal Pain with elevated LFTS and lipase, suspect CBD obstruction possibly choledocholithiasis vs recurrent ampullary adenoma
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 Due for repeat EGD on 02/15/2025
Prior history of choledocholithiasis status post ERCP (last one performed 08/05/2024)
History of gallstones and gallbladder sludge
Elevated lipase
-Continue NPO/IVFs
-EUS/ERCP today with traffic engineering technician Dr. Hollingsworth
-CT done in the ED with no definitive / acute abnormality.
-Patient states that symptoms are similar to prior episode that was attributed to biliary 'sludge' - this could certainly be the case.
-Follow for any new / recurrent symptoms.
-Follow LFTs for changes.
-GI eval for additional recommendations.
-? consideration for eventually cholecystectomy if symptoms felt to be due to biliary colic / sludge.
-Antibiotics and blood cultures as per my [place] Text communication with traffic engineering technician today
Benign Hypertension
-Continue lisinopril and metoprolol
-Hold HCTZ
Hyperlipidemia
-Hold Simvastatin
GERD
-Continue Protonix
DVT Prophylaxis: Lovenox
Code Status: Full Code
Subjective/Interval History
-
Date of Service: January 29, 2025
Objective Data
-
Labs:
Laboratory Results
01/29/25 01/29/25
06:13 06:14
WBC 7.5
Hgb 10.7 L
Hct 30.6 L
Plt Count 219
Sodium 137
Potassium 3.8
Chloride 105
Carbon Dioxide 24
BUN 14
Creatinine 0.9
Glucose 159 H
Calcium 8.6
Total Bilirubin 3.2 H
AST 404 H
ALT 589 H*
Alkaline Phosphatase 138 H
Vital Signs:
Vital Signs
Temp Pulse Resp BP Pulse Ox
98.2 F 68 16 141/59 95
01/29/25 07:00 01/29/25 08:05 01/29/25 07:00 01/29/25 08:05 01/29/25 07:00
I&O
01/28/25 01/29/25 01/30/25
06:59 06:59 06:59
Intake Total 4030 / 4030
Balance 4030 / 4030
--- NOTE | 2025-01-29 09:31 | W.PN.HOSP.TC ---
Today's Communication/Plan
-
Repeat LFT in AM
Stop IVF
advancing diet
Surgical consult
Assessment / Plan
Assessment / Plan
Physical Exam
General: Not in acute distress
HEENT: Normocephalic. Moist mucous membranes
Respiratory: Clear to Auscultation Bilaterally
Cardiac: S1/S2 and Regular Rhythm
GI: Positive bowel sounds. Soft and nontender
Musculoskeletal: No Cyanosis and No Edema
Skin: Warm and Dry
Neuro: Awake, Alert, Oriented and Nonfocal/grossly intact
Psych: Calm
# Choledocholithiasis
Elevated LFTs
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 Due for repeat EGD on 02/15/2025
Prior history of choledocholithiasis status post ERCP (last one performed 08/05/2024)
History of gallstones and gallbladder sludge
Elevated lipase
Status post ERCP with biopsy in the ampullectomy scar, removal of a stone by balloon extraction, pancreatic splenectomy, pancreatic stent placement.
She is feeling better. Will advance diet. Discussed with GI, recommended surgery consultation. Appreciate GI and surgery help.
No fever. No leukocytosis. Mild elevation total troponin. Liver enzymes came down. Repeat liver function test in AM.
Can dc IVF
Benign Hypertension
-Continue lisinopril and metoprolol
-Hold HCTZ
Hyperlipidemia
-Hold Simvastatin
GERD
-Continue Protonix
DVT Prophylaxis: Lovenox
Code Status: Full Code
Total time spent to see the patient, examine the patient, review data and lab result, discuss treatment plan with the patient, nursing staff around 55 minutes
Anticipated Discharge: Within 24 hours
Subjective/Interval History
-
Date of Service: January 29, 2025
No abd pain
No sob
No nausea
Objective Data
-
Labs:
Laboratory Results
01/29/25 01/29/25
06:13 06:14
WBC 7.5
Hgb 10.7 L
Hct 30.6 L
Plt Count 219
Sodium 137
Potassium 3.8
Chloride 105
Carbon Dioxide 24
BUN 14
Creatinine 0.9
Glucose 159 H
Calcium 8.6
Total Bilirubin 3.2 H
AST 404 H
ALT 589 H*
Alkaline Phosphatase 138 H
Vital Signs:
Vital Signs
Temp Pulse Resp BP Pulse Ox
98.2 F 68 16 141/59 95
01/29/25 07:00 01/29/25 08:05 01/29/25 07:00 01/29/25 08:05 01/29/25 07:00
I&O
01/28/25 01/29/25 01/30/25
06:59 06:59 06:59
Intake Total 4030 / 4030
Balance 4030 / 4030
--- NOTE | 2025-01-29 11:58 | W.PN.GI.CBS2 ---
Today's Communication / Plan
-
-- Surgical consult likely discharge in the morning
Assessment / Plan
-
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
08/05/2024 showing stone in CBD. Hyperechoic material consistent with sludge in gallbladder body. ERCP was performed on the same day Defect consistent with stone was seen on cholangiogram, the common bile duct was dilated. Complete removal
accomplished by balloon extraction. Sphincterotomy performed. Biliary tree was swept and debris was found.. CBD dilated. Complete removal of stone accomplished by balloon extraction. That showed polypoid lesion noted after balloon sweep,
removed with cold snare. Polypectomy removed. Biopsies taken and ampullectomy scar (adenoma) Coagulation for destruction of remaining portion of the area using APC. Repeat Endoscopic exam recommended in 6 months and was scheduled for 02/15/25.
Patient presented to the emergency room on 01/27/2025 with acute onset of abdominal pain in the right upper quadrant that radiated through the back associated with nausea with 2 episodes of bilious vomiting. Patient was found to have elevated LFTs
upon arrival, total bilirubin 1.4, AST of 477, ALT of 233 and alk phos of 135 and lipase of 1254. We are asked to evaluate for the same.
02-20, ERCP
- Prior endoscopic papillectomy. No obvious residual /
recurrent adenoma was observed.
- Biopsy was performed in the ampullectomy scar.
- A filling defect consistent with a stone was seen on
the cholangiogram.
- Choledocholithiasis was found. Complete removal was
accomplished by balloon extraction.
- A pancreatic sphincterotomy was performed.
- One pancreatic stent was placed into the ventral
pancreatic duct.
- The biliary tree was swept and sludge was found.
- Await path results.
- Perform a flat plate abdominal x-ray in 2 weeks.
- Return to my office in 2 months.
Impression:
RUQ pain
Elevated LFTs
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 Due for repeat EGD on 02/15/2025
Prior history of choledocholithiasis status post ERCP (last one performed 08/05/2024)
History of gallstones and gallbladder sludge
Elevated lipase
01/29/2025 clinically much improved with no significant abdominal pain. No more nausea or vomiting. Tolerated breakfast well
-- Will need abdominal x-ray in 2 weeks to look for the pancreatic stent, await path results from the ampullary biopsy and return to Dr. Hollingsworth's outpatient appointment in 2 months
-- Needs surgical consult for elective cholecystectomy in the setting of 2 episodes of choledocholithiasis requiring ERCP -discussed with Dr. Mcneil and primary team
-- Bilirubin climbed slightly today. ALT and AST have improved. Likely discharge after surgical consult and as long as total bilirubin is going in the right direction
-- Would repeat LFTs in 1 week to ensure improvement
-- Regular diet from a GI standpoint
Subjective
Subjective
Date of Service: January 29, 2025
Patient has minimal discomfort, no nausea or vomiting. Had breakfast and tolerated it well
Objective
Data Reviewed
Laboratory Data:
Laboratory Results
01/29/25 06:13
01/29/25 06:14
Laboratory Results
Total Bilirubin 3.2 mg/dl (0.2-1.3) H 01/29/25 06:14
AST 404 U/L (14-36) H 01/29/25 06:14
ALT 589 U/L (0-35) H* 01/29/25 06:14
Alkaline Phosphatase 138 U/L (38-126) H 01/29/25 06:14
Lipase 1254 U/L (23-300) H* 01/27/25 18:58
Vital Signs and I&O:
Vital Signs
Temp Pulse Resp BP Pulse Ox
98.0 F 73 18 135/63 2
01/29/25 11:00 01/29/25 11:00 01/29/25 11:00 01/29/25 11:00 01/29/25 11:00
I&O
01/28/25 01/29/25 01/30/25
06:59 06:59 06:59
Intake Total 4030 / 4030
Balance 4030 / 4030
Physical Exam
Physical Exam
HEENT: Anicteric (Icteric)
Cardiology: Normal Sinus Rhythm
GI: Soft, Non Distended and Non Tender (mild discomfort)
Extremities: No Edema
Neuro: Non Focal
--- NOTE | 2025-01-29 14:16 | CON.GS ---
Consultation
-
Date/Time Consultation Performed: 01/29/2025 1400
Medical History
-
Chief Complaint: epigastric pain with n/v
History of Present Illness:
70-year-old female with past medical history of ampullary adenoma followed by Dr. Hollingsworth for surveillance s/p endoscopic ampullectomy 06/03/23, ERCP and biliary pancreatic stent placement on 02/05/24 with biliary stent removal 02/24/24. An abdominal US
in April of 2024 was notable for possible gallbladder sludge with pneumobilia and a subsequent MRI demonstrated possible choledocholithiasis vs cholecystitis (given pneumobilia) although no cholelithiasis was reported on that image. A follow up
HIDA scan was negative. In July of 2024, she developed abdominal pain with elevated LFT's and an outpatient EUS was performed which demonstrated stones in CBD which was cleared endoscopically at that time with biliary sphincterotomy preformed.
She presented this admission with severe RUQ pain radiating into her back with nausea and vomiting. LFT's and lipase elevated on admission. She evaluated by gastroenterology and was taken for ERCP yesterday with choledocholithiasis again
demonstrated and stones removed with pancreatic sphincterotomy preformed with stent placement. She is currently pain free since that procedure and tolerating a regular diet.
Past Medical History
Past Medical History: GERD, HTN, Hypercholesterolemia and Other (cholelithiasis, choledocholithiasis 07/2024)
Past Surgical History: Gynecological (tubal ligation) and Other (Endoscopic ampullectomy (path tubular adenoma) 06/03/2023)
Social History
Tobacco: Non-Smoker
Alcohol: Occasional
Allergies / Home Medications
Allergy/AdvReac Type Severity Reaction Status Date / Time
No Known Allergies Allergy Verified 01/27/25 18:50
�Medication �Instructions �Recorded �Confirmed �Type
lisinopril 20 1 tab PO HS Blood Pressure 03/11/23 01/27/25 History
mg-hydrochlorothiazide 12.5 mg
tablet
pantoprazole 40 mg tablet,delayed 40 mg PO HS Gastrointestinal Issue 03/11/23 01/27/25 History
release
acetaminophen 325 mg tablet 650 mg (2 x 325 mg) PO Q4HPRN PRN 05/07/24 01/27/25 Rx
mild pain/IRVIN/temp> 100.4F 7 days
#30 tabs
cholecalciferol (vitamin D3) 50 1,200 mcg PO DAILY Supplement 08/05/24 01/27/25 History
mcg (2,000 unit) capsule (Vitamin
D3)
metoprolol succinate 25 mg 25 mg PO QPM Blood Pressure 01/27/25 01/27/25 History
tablet,extended release 24 hr
(Toprol XL)
simvastatin 40 mg tablet (Zocor) 40 mg PO HS cholesterol 01/27/25 01/27/25 History
therapeutic multivitamin 1 tab PO QPM Supplement 01/27/25 01/27/25 History
vitamins A,C,J-wsbk-omnlyb 2,148 2 tab PO QPM Supplement 01/27/25 01/27/25 History
mcg-113 mg-45 mg-17.4 mg tablet
(PreserVision AREDS)
Review of Systems
-
History Source: Patient and Family
All other systems: Negative unless noted
A 10 point review of systems was completed, and was negative except as per HPI.
Physical Exam
Vital Signs
Temp Pulse Resp BP Pulse Ox
98.0 F 73 18 135/63 98
01/29/25 11:00 01/29/25 11:00 01/29/25 11:00 01/29/25 11:00 01/29/25 11:00
01/28/25 01/29/25 01/30/25
06:59 06:59 06:59
Actual Weight 58.74 kg 61.19 kg
Body Mass Index (BMI) 25.5
Lab Results
01/29/25 06:13
01/29/25 06:14
WBC 7.5 10^3/uL (4.8-10.8) 01/29/25 06:13
Hgb 10.7 g/dL (12.0-16.0) L 01/29/25 06:13
Hct 30.6 % (37.0-47.0) L 01/29/25 06:13
Plt Count 219 10^3/uL (130-400) 01/29/25 06:13
Abs Immat Gran (auto) 0.0 10^3/uL (0-0.05) 01/29/25 06:13
Neutrophils % 88.4 % (42.2-75.2) H 01/29/25 06:13
Physical Exam
General: Well Developed and Well Nourished
HEENT: Moist Mucous Membranes and Scleral Icterus
Respiratory: Non Labored Respirations
GI: Soft, Non Tender and Non Distended
Skin: Warm and Dry
Neuro: Awake, Alert and AO x 3
Psych: Calm
Data Reviewed
-
CT Scan: Image Personally Visualized and interpreted, Report Reviewed by me, Discussed with Physician, Discussed with Patient and Discussed with Family
Labs: Labs Reviewed by me, Discussed with Physician, Discussed with Patient and Discussed with Family
Old Records: Reviewed
Assessment / Plan
-
79 yo female presenting with gallstone mediated pancreatitis with choledocholithiasis now PPD #1 ERCP with balloon extraction and pancreatic sphincterotomy with stent placement. CT imaging not consistent with acute cholecystitis. No leukocytosis or
fevers. Nontender on exam. This is her second admission for choledocholithiasis in the past 6 months. LFT's with up trend post procedure but clinically much improved with resolution of pain/nausea. Tolerating diet. VSS.
Recommend laparoscopic cholecystectomy for prevention of future episodes. Can be done on nonemergent basis either during this admission or on a scheduled basis. She would prefer to schedule this as an outpatient procedure which is reasonable.
--Diet as per GI
--Will follow with patient as an outpatient for timing of surgery
[2025-01-29] MEDS: LOVENOX 40 MG SC (17:47)
[2025-01-29] MEDS: TOPROL XL PO (17:49)
[2025-01-29] MEDS: LR IV (20:42)
[2025-01-29] MEDS: PROTONIX 40 MG PO (20:45)
[2025-01-29] MEDS: DILAUDID 0.25 MG IV (21:04)
[2025-01-30] MEDS: ZOSYN 50 IV (01:25)
[2025-01-30] MEDS: DILAUDID 0.5 MG IV (02:10)
[2025-01-30] MEDS: TORADOL 15 MG IV ×2 (02:10→21:15)
[2025-01-30] MEDS: TYLENOL 650 MG PO (04:47)
--- NOTE | 2025-01-30 05:22 | PTCARENOTE ---
PT aox3, vss. Pt reports tolerating advanced diet all meals. Pt initially reported mild to moderate epigastric discomfort that was tolerable. Abdomen soft, round and mildly distended. Passing gas, no bm's to note. As the night progressed the pt's
pain worsened to 10/10 sharp epigastric pain. Asymptomatic otherwise. BOOKING PRIZER made aware. Stat pain meds given. Pt rested comfortably for a few hours. Pt woke approximately 4am to use the restroom an get weighed. Pt reported 4/10 epigastric discomfort,
otherwise asymptomatic. Pt knows to report any new or worsening symptoms, Pt in queue to have labs drawn. Lipase added by BOOKING PRIZER.
[2025-01-30 06:00] VITALS: BMI 26.2
[2025-01-30 07:00] VITALS: BP 180/93
[2025-01-30 07:10] LABS: INR 0.96; PT 13.1 Sec (11.4-14.6)
[2025-01-30 07:27] LABS: ALT (SGPT) 466 U/L (0-35); AST (SGOT) 222 U/L (14-36); Albumin 3.1 g/dl (3.5-5.0); Alkaline Phosphatase 136 U/L (38-126); Blood Urea Nitrogen 15 mg/dl (7-17); Carbon Dioxide 31 mmol/L (22-30); Chloride 107 mmol/L (98-107); Estimated Creatinine Clearance 39 ml/min; Glucose 114 mg/dl (70-99); Lipase 1106 U/L (23-300); Potassium 3.5 mmol/L (3.5-5.1); Sodium 142 mmol/L (135-145); Total Protein 5.3 g/dl (6.3-8.2); eGFR 57.31
[2025-01-30] MEDS: DILAUDID 1 MG IV ×4 (07:58→18:36)
[2025-01-30] MEDS: NSS (PRESERVATIVE FREE) 10 ML IV (08:02)
[2025-01-30] MEDS: PROTONIX IV 40 MG IV (08:02)
[2025-01-30 08:03] LABS: % Basophils 0.2 % (0-2); % Eosinophils 1.7 % (0-6); % Immature Granulocytes 0.5 % (0-0.5); % Lymphocytes 15.7 % (20.5-51.1); % Monocytes 6.4 % (1.7-9.3); % Neutrophils 75.5 % (42.2-75.2); Absolute Eosinophils 0.1 10^3/uL (0-0.7); Absolute Lymphocytes 1.3 10^3/uL (1.2-3.4); Absolute Monocytes 0.5 10^3/uL (0.1-0.6); Absolute Neutrophils 6.2 10^3/uL (1.4-6.5); Hematocrit 31.2 % (37.0-47.0); Hemoglobin 10.5 g/dL (12.0-16.0); Mean Corp Hgb Conc. 33.7 g/dL (33.0-37.0); Mean Corpuscular Hgb 29.2 pg (27.0-31.0); Mean Corpuscular Volume 86.7 fL (81.0-99.0); Mean Platelet Volume 10.8 fL (7.4-10.4); Nucleated Red Blood Cells % 0 %; Platelet Count 244 10^3/uL (130-400); Red Cell Dist. Width 12.9 % (11.5-14.5); White Blood Cell Count 8.2 10^3/uL (4.8-10.8)
[2025-01-30] MEDS: LR 1000 IV ×4 (08:41→21:00)
--- NOTE | 2025-01-30 08:58 | W.PN.HOSP.TC ---
Today's Communication/Plan
-
NPO for now, monitor progress
IVF
IV PPI
Pain medicine
Assessment / Plan
Assessment / Plan
Physical Exam
General: Not in acute distress
HEENT: Normocephalic. Moist mucous membranes
Respiratory: Clear to Auscultation Bilaterally
Cardiac: S1/S2 and Regular Rhythm
GI: Positive bowel sounds. Soft and diffuse tender, no guarding
Musculoskeletal: No Cyanosis and No Edema
Skin: Warm and Dry
Neuro: Awake, Alert, Oriented and Nonfocal/grossly intact
Psych: Calm
# Acute pancreatitis
Gall stone pancreatitis Vs post ERCP? Biopsy Pancreatitis
She developed pain over night, lipase slightly lower than admission level. Bilirubin and liver enzymes came down
No fevers
Stopped IV Abx
Change to NPO with sips
Start aggressive hydration with RL
Change to IV PPI
Pain medicine with IV Dilaudid
Monitor clinical status
# Choledocholithiasis
Elevated LFTs
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 Due for repeat EGD on 02/15/2025
Prior history of choledocholithiasis status post ERCP (last one performed 08/05/2024)
History of gallstones and gallbladder sludge
Elevated lipase
Status post ERCP with biopsy in the ampullectomy scar, removal of a stone by balloon extraction, pancreatic splenectomy, pancreatic stent placement.
Discussed with GI, recommended surgery consultation. Appreciate GI and surgery help. For OP follow up for GB removal
#Benign Hypertension
hold lisinopril in setting of pancreatitis, although doubt it as etiology
c/w metoprolol
-Hold HCTZ
#Hyperlipidemia
-Hold Simvastatin
GERD
-Continue Protonix
DVT Prophylaxis: Lovenox
Code Status: Full Code
Total time spent to see the patient, examine the patient, review data and lab result, discuss treatment plan with the patient, consultants, nursing staff around 55 minutes
Anticipated Discharge: 24 - 48 hours
Subjective/Interval History
-
Date of Service: January 30, 2025
She developed abdominal pain over night
Objective Data
-
Labs:
Laboratory Results
01/30/25
06:36
WBC 8.2
Hgb 10.5 L
Hct 31.2 L
Plt Count 244
PT 13.1
INR 0.96
Sodium 142
Potassium 3.5
Chloride 107
Carbon Dioxide 31 H
BUN 15
Creatinine 1.0
Glucose 114 H
Calcium 9.0
Total Bilirubin 1.0 D
AST 222 H
ALT 466 H
Alkaline Phosphatase 136 H
Vital Signs:
Vital Signs
Temp Pulse Resp BP Pulse Ox
98.4 F 87 17 180/93 94
01/30/25 07:00 01/30/25 07:00 01/30/25 07:00 01/30/25 07:00 01/30/25 07:00
I&O
01/29/25 01/30/25 01/31/25
06:59 06:59 06:59
Intake Total 4030 / 4030 1949
Balance 4030 / 4030 1949
--- NOTE | 2025-01-30 11:47 | W.PN.GI.CBS2 ---
Today's Communication / Plan
-
CT scan with IV contrast only, 1 mg Ativan IV now, pain control, when pain under control okay for clear liquids, n.p.o. for now
Assessment / Plan
-
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
08/05/2024 showing stone in CBD. Hyperechoic material consistent with sludge in gallbladder body. ERCP was performed on the same day Defect consistent with stone was seen on cholangiogram, the common bile duct was dilated. Complete removal
accomplished by balloon extraction. Sphincterotomy performed. Biliary tree was swept and debris was found.. CBD dilated. Complete removal of stone accomplished by balloon extraction. That showed polypoid lesion noted after balloon sweep,
removed with cold snare. Polypectomy removed. Biopsies taken and ampullectomy scar (adenoma) Coagulation for destruction of remaining portion of the area using APC. Repeat Endoscopic exam recommended in 6 months and was scheduled for 02/15/25.
Patient presented to the emergency room on 01/27/2025 with acute onset of abdominal pain in the right upper quadrant that radiated through the back associated with nausea with 2 episodes of bilious vomiting. Patient was found to have elevated LFTs
upon arrival, total bilirubin 1.4, AST of 477, ALT of 233 and alk phos of 135 and lipase of 1254. We are asked to evaluate for the same.
02-20, ERCP
- Prior endoscopic papillectomy. No obvious residual /
recurrent adenoma was observed.
- Biopsy was performed in the ampullectomy scar.
- A filling defect consistent with a stone was seen on
the cholangiogram.
- Choledocholithiasis was found. Complete removal was
accomplished by balloon extraction.
- A pancreatic sphincterotomy was performed.
- One pancreatic stent was placed into the ventral
pancreatic duct.
- The biliary tree was swept and sludge was found.
- Await path results.
- Perform a flat plate abdominal x-ray in 2 weeks.
- Return to my office in 2 months.
Impression:
RUQ pain
Elevated LFTs
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 Due for repeat EGD on 02/15/2025
Prior history of choledocholithiasis status post ERCP (last one performed 08/05/2024)
History of gallstones and gallbladder sludge
Elevated lipase
01/29/2025 clinically much improved with no significant abdominal pain. No more nausea or vomiting. Tolerated breakfast well
-- Will need abdominal x-ray in 2 weeks to look for the pancreatic stent, await path results from the ampullary biopsy and return to Dr. Hollingsworth's outpatient appointment in 2 months
-- Needs surgical consult for elective cholecystectomy in the setting of 2 episodes of choledocholithiasis requiring ERCP -discussed with Dr. Mcneil and primary team
-- Bilirubin climbed slightly today. ALT and AST have improved. Likely discharge after surgical consult and as long as total bilirubin is going in the right direction
-- Would repeat LFTs in 1 week to ensure improvement
-- Regular diet from a GI standpoint
01/30/25 -this morning developed significant diffuse abdominal pain into her back concern for pancreatitis
-- Lipase has been elevated throughout the procedure
-- She also underwent ERCP on 01/28/2025 and therefore we will proceed to CT scan with IV contrast without oral contrast
-- Etiology could be pancreatitis post ERCP versus ampullary biopsy versus cholecystitis
-- Last dose of Zosyn was yesterday, pending results may need to restart
-- Getting 250 lactated Ringer's
-- Added a dose of Ativan now, pain control, antiemetics
Subjective
Subjective
Date of Service: January 30, 2025
Patient in significant pain into her back. Minimal nausea no vomiting
Objective
Data Reviewed
Laboratory Data:
Laboratory Results
05/04/25 06:36
01/30/25 06:36
Laboratory Results
PT 13.1 Sec (11.4-14.6) 01/30/25 06:36
INR 0.96 01/30/25 06:36
Total Bilirubin 1.0 mg/dl (0.2-1.3) D 01/30/25 06:36
AST 222 U/L (14-36) H 01/30/25 06:36
ALT 466 U/L (0-35) H 01/30/25 06:36
Alkaline Phosphatase 136 U/L (38-126) H 01/30/25 06:36
Lipase 1106 U/L (23-300) H* 01/30/25 06:36
Vital Signs and I&O:
Vital Signs
Temp Pulse Resp BP Pulse Ox
98.4 F 87 17 180/93 94
01/30/25 07:00 01/30/25 07:00 01/30/25 07:00 01/30/25 07:00 01/30/25 07:00
I&O
01/29/25 01/30/25 01/31/25
06:59 06:59 06:59
Intake Total 4030 / 4030 1949
Balance 4030 / 4030 1949
Physical Exam
Physical Exam
HEENT: Anicteric (Mildly icteric)
Cardiology: Normal Sinus Rhythm (Mildly tachycardic)
GI: Soft, Tender and Normal Bowel Sounds (Hypoactive bowel sounds)
Extremities: No Edema
Neuro: Non Focal
[2025-01-30] MEDS: ATIVAN 1 MG IV (12:40)
[2025-01-30] MEDS: NSS (PRESERVATIVE FREE) 0.5 ML IV (12:40)
[2025-01-30 15:00] VITALS: BP 151/75
[2025-01-30] MEDS: LOVENOX 40 MG SC (17:21)
[2025-01-30] MEDS: TOPROL XL 25 MG PO (17:22)
[2025-01-30 19:35] VITALS: BP 171/88
[2025-01-30] MEDS: TYLENOL PO (21:29)
[2025-01-30 23:00] VITALS: BP 158/81
[2025-01-31] MEDS: DILAUDID 0.5 MG IV (00:24)
[2025-01-31] MEDS: LR 1000 IV ×3 (00:25→20:41)
[2025-01-31] MEDS: DILAUDID 1 MG IV ×6 (02:30→22:00)
--- NOTE | 2025-01-31 06:12 | PTCARENOTE ---
Weight was not recorded on patient because she refused due to her pain level
[2025-01-31 06:51] LABS: % Basophils 0.4 % (0-2); % Eosinophils 1.3 % (0-6); % Immature Granulocytes 0.5 % (0-0.5); % Lymphocytes 12.4 % (20.5-51.1); % Monocytes 8.6 % (1.7-9.3); % Neutrophils 76.8 % (42.2-75.2); Absolute Eosinophils 0.2 10^3/uL (0-0.7); Absolute Immature Granulocytes 0.1 10^3/uL (0-0.05); Absolute Lymphocytes 1.4 10^3/uL (1.2-3.4); Absolute Neutrophils 8.5 10^3/uL (1.4-6.5); Hematocrit 29.1 % (37.0-47.0); Hemoglobin 9.8 g/dL (12.0-16.0); Mean Corp Hgb Conc. 33.7 g/dL (33.0-37.0); Mean Corpuscular Hgb 29.3 pg (27.0-31.0); Mean Corpuscular Volume 86.9 fL (81.0-99.0); Mean Platelet Volume 10.5 fL (7.4-10.4); Nucleated Red Blood Cells % 0 %; Platelet Count 232 10^3/uL (130-400); Red Blood Cell Count 3.35 10^6/uL (4.20-5.40); Red Cell Dist. Width 13.1 % (11.5-14.5); White Blood Cell Count 11.1 10^3/uL (4.8-10.8)
[2025-01-31 07:27] LABS: ALT (SGPT) 308 U/L (0-35); AST (SGOT) 82 U/L (14-36); Albumin 2.9 g/dl (3.5-5.0); Alkaline Phosphatase 120 U/L (38-126); Blood Urea Nitrogen 7 mg/dl (7-17); Calcium 8.6 mg/dl (8.4-10.2); Carbon Dioxide 28 mmol/L (22-30); Chloride 105 mmol/L (98-107); Estimated Creatinine Clearance 55 ml/min; Glucose 91 mg/dl (70-99); Lipase 177 U/L (23-300); Potassium 3.6 mmol/L (3.5-5.1); Sodium 137 mmol/L (135-145); Total Protein 5.1 g/dl (6.3-8.2); eGFR > 60.00
[2025-01-31 07:36] VITALS: BP 183/89
--- NOTE | 2025-01-31 07:57 | W.PN.HOSP.TC ---
Today's Communication/Plan
-
See plan
Assessment / Plan
Assessment / Plan
Physical Exam
General: Not in acute distress
HEENT: Normocephalic. Moist mucous membranes
Respiratory: Clear to Auscultation Bilaterally
Cardiac: S1/S2 and Regular Rhythm
GI: Positive bowel sounds. Soft and diffuse tender, no guarding
Musculoskeletal: No Cyanosis and No Edema
Skin: Warm and Dry
Neuro: Awake, Alert, Oriented and Nonfocal/grossly intact
Psych: Calm
Assessment/Plan
# Acute pancreatitis
Gall stone pancreatitis Vs post ERCP? Biopsy Pancreatitis
She developed pain over night, lipase slightly lower than admission level. Bilirubin and liver enzymes came down
No fevers
Stopped IV Abx -- per GI, does not need antibiotics for anything related to GI
Clear liquids diet
Decrease IV Fluids rate to 75 cc/hr; monitor intake and output urination closely
Change to IV PPI
Pain medicine with IV Dilaudid
Monitor clinical status
79y F with RUQ pain. 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 Lipase elevated. GI consulted. Concern for obstruction possibly choledocholithiasis vs recurrent ampullary
adenoma. On antibiotics. Dr. Hollingsworth to do EUS/ERCP today.
Addendum: GI did the procedure and she improved .GI wanted surgery consult before discharge to plan for cholecystectomy. Overnight developed severe abdominal pain consistent with post ERCP pancreatitis, now n.p.o. with sips/IV fluids/pain control.
Stopped IV antibiotics.
# Choledocholithiasis
Elevated LFTs
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 Due for repeat EGD on 02/15/2025
Prior history of choledocholithiasis status post ERCP (last one performed 08/05/2024)
History of gallstones and gallbladder sludge
Elevated lipase
Status post ERCP with biopsy in the ampullectomy scar, removal of a stone by balloon extraction, pancreatic splenectomy, pancreatic stent placement.
Discussed with GI, recommended surgery consultation.
Appreciate GI and surgery help. For OP follow up for GB removal -- patient now wants lap william while hospitalized, but this would have to be after pancreatitis resolves
#Bibasilar opacities suggestive of airspace consolidation and small pleural effusions with component of pneumonia unable to be excluded on 01/31/25 chest x-ray
#Cough, Congestion
#Leukocytosis suspected from pneumonia vs. reactive to pancreatitis
-Antibiotics for pneumonia with Rocephin and Doxycycline
-Speech evaluation
-Pulmonary consult given CT findings earlier this admission and current chest x-ray findings
#Benign Hypertension
hold lisinopril in setting of pancreatitis, although doubt it as etiology
c/w metoprolol
-Hold HCTZ
#Hyperlipidemia
-Hold Simvastatin
#GERD
-Continue Protonix
Speech (as of 01/31/25): no signs of aspiration with thin liquids. Will assess with solids if when medically cleared.
DVT Prophylaxis: Lovenox
Code Status: Full Code
On 01/31/25, I spoke with patient's daughter and , and answered all of their questions and concerns to satisfaction.
Anticipated Discharge: > 48 hours
Subjective/Interval History
-
Date of Service: January 31, 2025
Patient was seen and examined. Still with bilateral lower abdominal pain and back pain.
Objective Data
-
Labs:
Laboratory Results
01/31/25
06:27
WBC 11.1 H
Hgb 9.8 L
Hct 29.1 L
Plt Count 232
Sodium 137
Potassium 3.6
Chloride 105
Carbon Dioxide 28
BUN 7
Creatinine 0.7
Glucose 91
Calcium 8.6
Total Bilirubin 1.0
AST 82 H
ALT 308 H
Alkaline Phosphatase 120
Vital Signs:
Vital Signs
Temp Pulse Resp BP Pulse Ox
98.8 F 88 18 183/89 92
01/31/25 07:36 01/31/25 07:36 01/31/25 07:36 01/31/25 07:36 01/31/25 07:36
I&O
01/30/25 01/31/25 02/01/25
06:59 06:59 06:59
Intake Total 1949 3390 / 3390
Balance 1949 3390 / 3390
[2025-01-31] MEDS: PROTONIX IV 40 MG IV ×2 (08:34→20:37)
[2025-01-31] MEDS: NSS (PRESERVATIVE FREE) 10 ML IV ×2 (08:35→20:36)
[2025-01-31] MEDS: TYLENOL 650 MG PO ×3 (10:39→21:10)
[2025-01-31] MEDS: LIDOCAINE 4% PATCH 1 PATCH TOPICAL (12:08)
[2025-01-31] MEDS: LR IV (12:16)
--- NOTE | 2025-01-31 12:39 | PTOTSP ---
Dysphagia Eval
No signs concerning for dysphagia/aspiration with limited clear liquid trials. Will assess with advanced solids when medically cleared to do so.
Recommend:
1. Thin liquids (restricted to clear liquids per GI note)
2. meds as best tolerated
3. aspiration and reflux precautions
4. assess w/ advanced solids if/when medically cleared
[2025-01-31] MEDS: ZOFRAN 4 MG IV (15:09)
[2025-01-31 15:26] VITALS: BP 184/75
--- NOTE | 2025-01-31 15:42 | PTCARENOTE ---
Pt stating pain tolerable after application of Lidocaine patch. Advanced to clear liquid diet. Episode of green emesis and nausea after clear liquid diet lunch. PRN Zofran administered.
[2025-01-31] MEDS: DULCOLAX 10 MG RECTAL (16:41)
[2025-01-31 16:57] LABS: Hemoglobin 10.1 g/dL (12.0-16.0)
--- NOTE | 2025-01-31 17:08 | W.PN.GI.CBS2 ---
Today's Communication / Plan
-
-- Suppository, alternate Toradol and Dilaudid to help decrease ileus, clear liquids advance as tolerated increase pantoprazole to twice daily with potential duodenitis
-- Will review imaging with Dr. Hollingsworth
Assessment / Plan
-
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
08/05/2024 showing stone in CBD. Hyperechoic material consistent with sludge in gallbladder body. ERCP was performed on the same day Defect consistent with stone was seen on cholangiogram, the common bile duct was dilated. Complete removal
accomplished by balloon extraction. Sphincterotomy performed. Biliary tree was swept and debris was found.. CBD dilated. Complete removal of stone accomplished by balloon extraction. That showed polypoid lesion noted after balloon sweep,
removed with cold snare. Polypectomy removed. Biopsies taken and ampullectomy scar (adenoma) Coagulation for destruction of remaining portion of the area using APC. Repeat Endoscopic exam recommended in 6 months and was scheduled for 02/15/25.
Patient presented to the emergency room on 01/27/2025 with acute onset of abdominal pain in the right upper quadrant that radiated through the back associated with nausea with 2 episodes of bilious vomiting. Patient was found to have elevated LFTs
upon arrival, total bilirubin 1.4, AST of 477, ALT of 233 and alk phos of 135 and lipase of 1254. We are asked to evaluate for the same.
, ERCP
- Prior endoscopic papillectomy. No obvious residual /
recurrent adenoma was observed.
- Biopsy was performed in the ampullectomy scar.
- A filling defect consistent with a stone was seen on
the cholangiogram.
- Choledocholithiasis was found. Complete removal was
accomplished by balloon extraction.
- A pancreatic sphincterotomy was performed.
- One pancreatic stent was placed into the ventral
pancreatic duct.
- The biliary tree was swept and sludge was found.
- Await path results.
- Perform a flat plate abdominal x-ray in 2 weeks.
- Return to my office in 2 months.
Impression:
RUQ pain
Elevated LFTs
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 Due for repeat EGD on 02/15/2025
Prior history of choledocholithiasis status post ERCP (last one performed 08/05/2024)
History of gallstones and gallbladder sludge
Elevated lipase
01/29/2025 clinically much improved with no significant abdominal pain. No more nausea or vomiting. Tolerated breakfast well
-- Will need abdominal x-ray in 2 weeks to look for the pancreatic stent, await path results from the ampullary biopsy and return to Dr. Hollingsworth's outpatient appointment in 2 months
-- Needs surgical consult for elective cholecystectomy in the setting of 2 episodes of choledocholithiasis requiring ERCP -discussed with Dr. Mcneil and primary team
-- Bilirubin climbed slightly today. ALT and AST have improved. Likely discharge after surgical consult and as long as total bilirubin is going in the right direction
-- Would repeat LFTs in 1 week to ensure improvement
-- Regular diet from a GI standpoint
01/30/25 -this morning developed significant diffuse abdominal pain into her back concern for pancreatitis
-- Lipase has been elevated throughout the procedure
-- She also underwent ERCP on 01/28/2025 and therefore we will proceed to CT scan with IV contrast without oral contrast
-- Etiology could be pancreatitis post ERCP versus ampullary biopsy versus cholecystitis
-- Last dose of Zosyn was yesterday, pending results may need to restart
-- Getting 250 lactated Ringer's
-- Added a dose of Ativan now, pain control, antiemetics
01/31/2025 -CT scan done yesterday shows a proximal pancreatic duct extending into the duodenum with mild stranding about the duodenum and celiac axis potentially pancreatitis versus duodenitis. No oral contrast was given since she was so nauseous.
no discrete pancreatic or peripancreatic stranding around the body or tail.
-- Likely ileus, suppository, alternate Toradol and Dilaudid, monitor hemoglobin, no active signs of bleeding
Clear liquids as tolerated, IV fluids, okay for Lovenox
NO need for antibiotics from a pancreatitis standpoint but if you think she has pneumonia it would need treated. The leukocytosis will be reactive
Subjective
Subjective
Date of Service: January 31, 2025
Patient with significant pain in her back. Looks more comfortable today than yesterday but had a rough night
Objective
Data Reviewed
Laboratory Data:
Laboratory Results
01/31/25 16:50
01/31/25 06:27
Laboratory Results
PT 13.1 Sec (11.4-14.6) 01/30/25 06:36
INR 0.96 01/30/25 06:36
Total Bilirubin 1.0 mg/dl (0.2-1.3) 01/31/25 06:27
AST 82 U/L (14-36) H 01/31/25 06:27
ALT 308 U/L (0-35) H 01/31/25 06:27
Alkaline Phosphatase 120 U/L (38-126) 01/31/25 06:27
Lipase 177 U/L (23-300) 01/31/25 06:27
Vital Signs and I&O:
Vital Signs
Temp Pulse Resp BP Pulse Ox
98.2 F 86 17 184/75 94
01/31/25 15:26 01/31/25 15:26 01/31/25 15:26 01/31/25 15:26 01/31/25 15:49
I&O
01/30/25 01/31/25 02/01/25
06:59 06:59 06:59
Intake Total 1949 3390 / 3390
Balance 1949 3390 / 3390
Physical Exam
Physical Exam
HEENT: Anicteric
GI: Soft, Tender and Normal Bowel Sounds (Decreased bowel sounds)
Extremities: No Edema
Neuro: Non Focal
[2025-01-31 17:15] LABS: COVID-19 Antigen Negative (Negative)
[2025-01-31] MEDS: LOVENOX 40 MG SC (17:26)
[2025-01-31] MEDS: TOPROL XL 25 MG PO (17:30)
[2025-01-31] MEDS: TORADOL 15 MG IV (17:32)
[2025-01-31] MEDS: UNASYN IV (17:40)
--- NOTE | 2025-01-31 18:23 | PTCARENOTE ---
Pt found to have removed 2L nasal cannula. Dyspnea that patient stated was related to abdominal pain. SaO2 found to be 78%. Nasal cannula reapplied and O2 increased to 4L. SaO2 to 94%. PRN Toradol administered.
[2025-01-31] MEDS: VIBRAMYCIN 260 MG IV (18:29)
[2025-01-31 23:48] VITALS: BP 153/67
[2025-02-01] MEDS: UNASYN IV ×2 (00:23→05:49)
[2025-02-01] MEDS: TORADOL 15 MG IV (01:32)
[2025-02-01] MEDS: DILAUDID 1 MG IV ×6 (02:45→22:32)
[2025-02-01] MEDS: VIBRAMYCIN 260 MG IV (05:49)
[2025-02-01] MEDS: DILAUDID 0.5 MG IV (05:58)
[2025-02-01 06:00] VITALS: BMI 26.3
[2025-02-01 07:05] VITALS: BP 187/84
[2025-02-01] MEDS: PROTONIX IV 40 MG IV ×2 (07:52→21:40)
[2025-02-01] MEDS: NSS (PRESERVATIVE FREE) 10 ML IV ×2 (07:52→21:40)
[2025-02-01] MEDS: LIDOCAINE 4% PATCH 1 PATCH TOPICAL (08:00)
--- NOTE | 2025-02-01 08:01 | W.PN.HOSP.TC ---
Today's Communication/Plan
-
See plan
Assessment / Plan
Assessment / Plan
Physical Exam
General: Not in acute distress
HEENT: Normocephalic. Moist mucous membranes
Respiratory: Clear to Auscultation Bilaterally
Cardiac: S1/S2 and Regular Rhythm
GI: Positive bowel sounds. Soft (but more firm than yesterday) and non tender, no guarding
Musculoskeletal: No Cyanosis and No Edema
Skin: Warm and Dry
Neuro: Awake, Alert, Oriented and Nonfocal/grossly intact
Psych: Calm
Assessment/Plan
# Acute pancreatitis
Gall stone pancreatitis Vs post ERCP? Biopsy Pancreatitis
She developed pain over night, lipase slightly lower than admission level. Bilirubin and liver enzymes came down
No fevers
Stopped IV Abx -- per GI, does not need antibiotics for anything related to GI
Clear liquids diet
Decrease IV Fluids rate to 75 cc/hr; monitor intake and output urination closely
Change to IV PPI
Pain medicine with IV Dilaudid
Monitor clinical status
# Choledocholithiasis
Elevated LFTs
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 Due for repeat EGD on 02/15/2025
Prior history of choledocholithiasis status post ERCP (last one performed 08/05/2024)
History of gallstones and gallbladder sludge
Elevated lipase
Status post ERCP with biopsy in the ampullectomy scar, removal of a stone by balloon extraction, pancreatic splenectomy, pancreatic stent placement.
Discussed with GI, recommended surgery consultation.
Appreciate GI and surgery help. For OP follow up for GB removal -- patient now wants lap william while hospitalized, but this would have to be after pancreatitis resolves
#Severe Bilateral Lower Abdominal and Lower Back Pain
-Ordered repeat CT Abdomen Pelvis, but this time to include oral contrast
-Started Zosyn, and have made patient NPO
-Consulted general surgery
#Bibasilar opacities suggestive of airspace consolidation and small pleural effusions with component of pneumonia unable to be excluded on 01/31/25 chest x-ray
#Cough, Congestion
#Leukocytosis suspected from pneumonia vs. reactive to pancreatitis
-Antibiotics for pneumonia with Rocephin and Doxycycline
-Speech evaluation -- they are following
-Pulmonary consult given CT findings earlier this admission and current chest x-ray findings
#Benign Hypertension
Blood pressure now high suspected due to pain
hold lisinopril in setting of pancreatitis, although doubt it as etiology
c/w metoprolol
-Hold HCTZ
-Started Amlodipine
#Hyperlipidemia
-Hold Simvastatin
#GERD
-Continue Protonix
Speech (as of 01/31/25): no signs of aspiration with thin liquids. Will assess with solids if when medically cleared.
DVT Prophylaxis: Lovenox
Code Status: Full Code
On 01/31/25, I spoke with patient's daughter and , and answered all of their questions and concerns to satisfaction.
On 02/01/25, I spoke with patient's daughter and , and answered all of their questions and concerns to satisfaction.
Anticipated Discharge: > 48 hours
Subjective/Interval History
-
Date of Service: February 01, 2025
Patient was seen and examined. She remained in significant bilateral lower abdominal pain. Having bowel movements and tolerating diet.
Objective Data
-
Labs:
Laboratory Results
02/01/25
06:00
WBC Pending
Hgb Pending
Hct Pending
Plt Count Pending
Sodium Pending
Potassium Pending
Chloride Pending
Carbon Dioxide Pending
BUN Pending
Creatinine Pending
Glucose Pending
Calcium Pending
Total Bilirubin Pending
AST Pending
ALT Pending
Alkaline Phosphatase Pending
Vital Signs:
Vital Signs
Temp Pulse Resp BP Pulse Ox
97.7 F 86 18 187/84 96
02/01/25 07:05 02/01/25 07:05 02/01/25 07:05 02/01/25 07:05 02/01/25 07:05
I&O
01/31/25 02/01/25 02/02/25
06:59 06:59 06:59
Intake Total 3390 / 3390 1730 / 1730
Balance 3390 / 3390 1730 / 1730
[2025-02-01] MEDS: NORVASC 2.5 MG PO (09:03)
[2025-02-01] MEDS: ZOFRAN 4 MG IV (09:04)
[2025-02-01 09:53] LABS: % Basophils 0.4 % (0-2); % Immature Granulocytes 0.8 % (0-0.5); % Lymphocytes 10.2 % (20.5-51.1); % Neutrophils 77.6 % (42.2-75.2); Absolute Eosinophils 0.3 10^3/uL (0-0.7); Absolute Immature Granulocytes 0.1 10^3/uL (0-0.05); Absolute Lymphocytes 1.1 10^3/uL (1.2-3.4); Absolute Monocytes 0.9 10^3/uL (0.1-0.6); Absolute Neutrophils 8.3 10^3/uL (1.4-6.5); Hematocrit 31.2 % (37.0-47.0); Hemoglobin 10.5 g/dL (12.0-16.0); Mean Corp Hgb Conc. 33.7 g/dL (33.0-37.0); Mean Corpuscular Hgb 29.4 pg (27.0-31.0); Mean Corpuscular Volume 87.4 fL (81.0-99.0); Mean Platelet Volume 10.7 fL (7.4-10.4); Nucleated Red Blood Cells % 0 %; Platelet Count 255 10^3/uL (130-400); Red Blood Cell Count 3.57 10^6/uL (4.20-5.40); Red Cell Dist. Width 12.8 % (11.5-14.5); White Blood Cell Count 10.7 10^3/uL (4.8-10.8)
[2025-02-01] MEDS: ZOSYN 50 IV ×2 (09:59→15:16)
[2025-02-01] MEDS: OMNIPAQUE 50 ML PO (10:00)
[2025-02-01 10:19] LABS: ALT (SGPT) 237 U/L (0-35); AST (SGOT) 62 U/L (14-36); Albumin 2.9 g/dl (3.5-5.0); Alkaline Phosphatase 123 U/L (38-126); Blood Urea Nitrogen 6 mg/dl (7-17); Calcium 8.8 mg/dl (8.4-10.2); Carbon Dioxide 28 mmol/L (22-30); Chloride 103 mmol/L (98-107); Estimated Creatinine Clearance 56 ml/min; Glucose 78 mg/dl (70-99); Magnesium 1.6 mg/dl (1.6-2.3); Potassium 3.4 mmol/L (3.5-5.1); Sodium 138 mmol/L (135-145); Total Bilirubin 0.9 mg/dl (0.2-1.3); Total Protein 5.2 g/dl (6.3-8.2); eGFR > 60.00
[2025-02-01] MEDS: MAGNESIUM SULFATE 50 IV (11:39)
[2025-02-01] MEDS: KCL 260 MEQ IV (11:43)
--- NOTE | 2025-02-01 13:25 | CON.PUL ---
Consultation
Consultation Request
Date/Time Consultation Requested: 02/01/2025
Date/Time Consultation Performed: 02/01/2025
Requesting Provider: Dr. Nugent
Performing Provider: Dr. Fernando Delgado
Reason for Consultation: Pneumonia/abnormal CT chest
Medical History
-
History of Present Illness:
79-year-old woman past medical history significant for hypertension, ampullary adenoma who presented to the emergency room at [facility] complaining initially of right upper quadrant pain on 01/27/2025. Initial CAT scan of the abdomen showed
no acute abnormalities on the abdomen. Lungs at that time were clear on 01/27/2025. Underwent ERCP 01/28/2025. Pancreatic stent was placed.
Repeat CT abdomen pelvis 01/30/2025,Showed bibasilar opacities possibly atelectasis versus pneumonia. Small bilateral pleural effusions.
Subsequent chest x-ray 01/31/2025 performed due to hypoxemia showed bibasilar infiltrates.
Abdominal pain postprocedure has developed. Patient did receive antibiotics Zosyn last dose was 01/31/2025.
Concerns for pancreatitis- repeat CT abdomen pelvis 02/01/2025-lung cancer repeat showed persistent bibasilar opacity suggestive of atelectasis and small pleural effusion.
Currently on 4 L nasal cannula-complaining of coughing and some congestion.
Denies purulent sputum production.
Denies hemoptysis.
She has remained afebrile throughout.
Past Medical History
Past Medical History: Other ( See assessment and plan)
Social History
Tobacco: Non-smoker
Alcohol: Occasional
Drug: None
Personal:
Living: With Family
Family History
Family History: Reviewed & Not Pertinent
Allergies / Home Medications
Allergies
Allergy/AdvReac Type Severity Reaction Status Date / Time
No Known Allergies Allergy Verified 01/27/25 18:50
Home Medications
�Medication �Instructions �Recorded �Confirmed �Last Taken �Type
lisinopril 20 1 tab PO HS Blood Pressure 03/11/23 01/27/25 01/26/25 History
mg-hydrochlorothiazide 12.5 mg
tablet
pantoprazole 40 mg tablet,delayed 40 mg PO HS Gastrointestinal Issue 03/11/23 01/27/25 01/26/25 History
release
acetaminophen 325 mg tablet 650 mg (2 x 325 mg) PO Q4HPRN PRN 05/07/24 01/27/25 01/27/25 Rx
mild pain/IRVIN/temp> 100.4F 7 days
#30 tabs
cholecalciferol (vitamin D3) 50 1,200 mcg PO DAILY Supplement 08/05/24 01/27/25 08/03/24 18:30 History
mcg (2,000 unit) capsule (Vitamin
D3)
metoprolol succinate 25 mg 25 mg PO QPM Blood Pressure 01/27/25 01/27/25 01/26/25 History
tablet,extended release 24 hr
(Toprol XL)
simvastatin 40 mg tablet (Zocor) 40 mg PO HS cholesterol 01/27/25 01/27/25 01/26/25 History
therapeutic multivitamin 1 tab PO QPM Supplement 01/27/25 01/27/25 Unknown History
vitamins A,C,M-wobh-tdhcxo 2,148 2 tab PO QPM Supplement 01/27/25 01/27/25 Unknown History
mcg-113 mg-45 mg-17.4 mg tablet
(PreserVision AREDS)
Review of Systems
-
History Source: Patient
All other systems: Negative unless noted
Vitals / Labs / Diagnostic Testing
Vital Signs
Temp Pulse Resp BP Pulse Ox
97.7 F 86 18 187/84 96
02/01/25 07:05 02/01/25 07:05 02/01/25 07:05 02/01/25 09:03 02/01/25 07:05
Lab Data
02/01/25 08:38
02/01/25 08:38
Microbiology
01/31/25 16:50 Nasal Swab Influenza Types A & B (RONDA) - Final
Negative for Influenza A & B, NAAT
Negative results must be combined with clinical observations
and patient history.
Nucleic Acid Amplification test (NAAT)performed on the
[employer]ex[employer] platform.
01/28/25 13:57 Blood/Venous Blood Culture - Preliminary
No Growth in 72 hours- Final report to follow
01/28/25 13:22 Blood/Venous Blood Culture - Preliminary
No Growth in 72 hours- Final report to follow
Diagnostic Testing:
Physical Exam
-
HEENT: Normocephalic
Cardiovascular: S1/S2
Respiratory: Non-Labored Respirations
GI: Soft, Non Distended and Tender
Neurology: Awake and Oriented
Skin: Warm
General: Comfortable
Assessment
-
79-year-old woman with past medical history noted. Admitted for abdominal pain. Found to have choledocholithiasis. Underwent ERCP 01/28/2025. Subsequently during the hospital stay developed some hypoxemia. Found to have some bibasilar
infiltrates. I was consulted on 01/31/2025 for evaluation of this.
Bilateral infiltrates on CT abdomen pelvis lung cuts-initially present 01/30/2025. Not present on CT abdomen pelvis 01/27/2025.
Bibasilar atelectasis due to hypoventilation due to abdominal pain/bilateral pleural effusions possibly from pancreatitis.
Cannot rule out aspiration event postprocedure
Afebrile
Hypoxemic respiratory failure currently on 4 L
Acute pancreatitis-? Post ERCP versus gallstone pancreatitis status post ERCP 01/28/2025.
Choledocholithiasis on admission
History of ampullary adenoma status post ampullectomy last procedure 08/05/2024
Conditions present prior admission:
GERD
Hypertension
Hypercholesterolemia
History of ampullary adenoma-history of endoscopic ampullectomy
Colon polyps
-
Assessment and plan:
Imaging reviewed: CT abdomen pelvis lung cuts demonstrate that on 01/27/2025 there was no evidence for infiltrates on admission.
Underwent ERCP 01/28/2025.
On 01/30/[address] abdomen pelvis demonstrating bibasilar infiltrates.
Subsequent CT abdomen pelvis 01/31/2025 to evaluate for pancreatitis demonstrated worsening bibasilar opacities suggestive of atelectasis versus pneumonia. Small bilateral pleural effusions.
-
Appearance more consistent with bibasilar subsegmental atelectasis-incentive spirometry encouraged.
Cannot rule out aspiration event during ERCP. Would complete total 7 days of antibiotics and observe.
Small bilateral pleural effusions due to low albumin and pancreatitis.
Currently on 4 L nasal cannula-denies shortness of breath ambulating to the restroom.Wean down as able.
Lung exam with bronchial breath sounds in both bases.
-
Patient has been on antibiotics Zosyn for intra-abdominal process.
No significant leukocytosis
Afebrile
Analgesia -avoid hypoventilation.
-
Management of pancreatitis per gastroenterology and hospital service.
-
Increase mobility as able.
-
Will need radiographic follow-up in the outpatient setting.
-
Will continue to follow.
--- NOTE | 2025-02-01 13:40 | W.PN.GI.CBS2 ---
Today's Communication / Plan
-
repeat CT abd/pel with oral contrast pending
surgical eval
Assessment / Plan
-
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
08/05/2024 showing stone in CBD. Hyperechoic material consistent with sludge in gallbladder body. ERCP was performed on the same day Defect consistent with stone was seen on cholangiogram, the common bile duct was dilated. Complete removal
accomplished by balloon extraction. Sphincterotomy performed. Biliary tree was swept and debris was found.. CBD dilated. Complete removal of stone accomplished by balloon extraction. That showed polypoid lesion noted after balloon sweep,
removed with cold snare. Polypectomy removed. Biopsies taken and ampullectomy scar (adenoma) Coagulation for destruction of remaining portion of the area using APC. Repeat Endoscopic exam recommended in 6 months and was scheduled for 02/15/25.
Patient presented to the emergency room on 01/27/2025 with acute onset of abdominal pain in the right upper quadrant that radiated through the back associated with nausea with 2 episodes of bilious vomiting. Patient was found to have elevated LFTs
upon arrival, total bilirubin 1.4, AST of 477, ALT of 233 and alk phos of 135 and lipase of 1254. We are asked to evaluate for the same.
, ERCP
- Prior endoscopic papillectomy. No obvious residual /
recurrent adenoma was observed.
- Biopsy was performed in the ampullectomy scar.
- A filling defect consistent with a stone was seen on
the cholangiogram.
- Choledocholithiasis was found. Complete removal was
accomplished by balloon extraction.
- A pancreatic sphincterotomy was performed.
- One pancreatic stent was placed into the ventral
pancreatic duct.
- The biliary tree was swept and sludge was found.
- Await path results.
- Perform a flat plate abdominal x-ray in 2 weeks.
- Return to my office in 2 months.
Impression:
RUQ pain
Elevated LFTs
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 Due for repeat EGD on 02/15/2025
Prior history of choledocholithiasis status post ERCP (last one performed 08/05/2024)
History of gallstones and gallbladder sludge
Elevated lipase
01/29/2025 clinically much improved with no significant abdominal pain. No more nausea or vomiting. Tolerated breakfast well
-- Will need abdominal x-ray in 2 weeks to look for the pancreatic stent, await path results from the ampullary biopsy and return to Dr. Hollingsworth's outpatient appointment in 2 months
-- Needs surgical consult for elective cholecystectomy in the setting of 2 episodes of choledocholithiasis requiring ERCP -discussed with Dr. Mcneil and primary team
-- Bilirubin climbed slightly today. ALT and AST have improved. Likely discharge after surgical consult and as long as total bilirubin is going in the right direction
-- Would repeat LFTs in 1 week to ensure improvement
-- Regular diet from a GI standpoint
01/30/25 -this morning developed significant diffuse abdominal pain into her back concern for pancreatitis
-- Lipase has been elevated throughout the procedure
-- She also underwent ERCP on 01/28/2025 and therefore we will proceed to CT scan with IV contrast without oral contrast
-- Etiology could be pancreatitis post ERCP versus ampullary biopsy versus cholecystitis
-- Last dose of Zosyn was yesterday, pending results may need to restart
-- Getting 250 lactated Ringer's
-- Added a dose of Ativan now, pain control, antiemetics
01/31/2025 -CT scan done yesterday with IV contrast shows a proximal pancreatic duct extending into the duodenum with mild stranding about the duodenum and celiac axis potentially pancreatitis versus duodenitis. No oral contrast was given since she
was so nauseous. no discrete pancreatic or peripancreatic stranding around the body or tail.
-- Likely ileus, suppository, alternate Toradol and Dilaudid, monitor hemoglobin, no active signs of bleeding
Clear liquids as tolerated, IV fluids, okay for Lovenox
NO need for antibiotics from a pancreatitis standpoint but if you think she has pneumonia it would need treated. The leukocytosis will be reactive
02/01/2025
Continues to have abdominal pain. Awaiting repeat CT abd with oral contrast . No leukocytosis. AST/ALT trending down. Lipase normal at 177 ( 01/31/2025)
plan
NPO
follow up repeat CT abdomen/pelvis with oral contrast
surgical eval
Total Time Spent with Patient (in minutes): 35
Subjective
Subjective
Date of Service: February 01, 2025
Continues to have intermittent abdominal pain/bloating. Awaiting repeat CT
Objective
Data Reviewed
Laboratory Data:
Laboratory Results
02/01/25 08:38
02/01/25 08:38
Laboratory Results
PT 13.1 Sec (11.4-14.6) 01/30/25 06:36
INR 0.96 01/30/25 06:36
Magnesium 1.6 mg/dl (1.6-2.3) 02/01/25 08:38
Total Bilirubin 0.9 mg/dl (0.2-1.3) 02/01/25 08:38
AST 62 U/L (14-36) H 02/01/25 08:38
ALT 237 U/L (0-35) H 02/01/25 08:38
Alkaline Phosphatase 123 U/L (38-126) 02/01/25 08:38
Lipase 177 U/L (23-300) 01/31/25 06:27
Vital Signs and I&O:
Vital Signs
Temp Pulse Resp BP Pulse Ox
97.7 F 86 18 187/84 96
02/01/25 07:05 02/01/25 07:05 02/01/25 07:05 02/01/25 09:03 02/01/25 07:05
I&O
01/31/25 02/01/25 02/02/25
06:59 06:59 06:59
Intake Total 3390 / 3390 1730 / 1730
Balance 3390 / 3390 1730 / 1730
Physical Exam
Physical Exam
GI: Soft, Distended and Tender
[2025-02-01 15:30] VITALS: BP 182/103
--- NOTE | 2025-02-01 15:30 | CM ---
Patient seen at bedside
on 4, CT scan today complete, npo
Plan: tbd, CM to follow for needs
[2025-02-01] MEDS: LR 1000 IV (18:19)
[2025-02-01] MEDS: TOPROL XL 25 MG PO (18:19)
[2025-02-01] MEDS: LOVENOX 40 MG SC (18:20)
--- NOTE | 2025-02-01 18:55 | W.PN.GS2 ---
Today's Communication / Plan
-
-- Continued medical management of pancreatitis
-- Diet as tolerated
-- Role of cholecystectomy reviewed, no urgent indication at this time, patient prefers outpatient management
Assessment / Plan
-
Patent is a 79 yo F p/w recurrent choledocholithiasis s/p ERCP on 01/28/2025 c/b pancreatitis
Afebrile, hypertensive, intermittent tachycardia
Labs notable for normal WBC, mildly persistent LFTs, normal bilirubin and lipase
Current symptoms and issues most consistent with that of evolving pancreatitis with likely component of plural effusions and ileus. No evidence of bowel distension on CT. No worsening GB inflammation or distension. Posterior pancreatis
inflammation without fluid collection. No free air. No clear evidence of cholecystitis based on clinical history, physical exam, as well as a cholangiogram during her ERCP which demonstrated a patent cystic duct and filling of the gallbladder.
The natural history and pathophysiology of biliary and stone disease was briefly reviewed. Role of cholecystectomy in preventing future episodes of choledocholithiasis or gallstone pancreatitis was reviewed. Previous discussion with patient with a
desire to proceed with outpatient cholecystectomy. Given her continued and persistent issues with pancreatitis this is not unreasonable.
-- Continued medical management of pancreatitis
-- Diet as tolerated
-- Role of cholecystectomy reviewed, no urgent indication at this time, patient prefers outpatient management
Subjective Data
-
Date of Service: February 01, 2025
Reports continued back pain radiating to the flanks. Stable compared to yesterday. Denies any worsening anterior abdominal pain. Nausea and an episode of emesis yesterday, none currently. Passing small flatus and a small BM this AM. Afebrile
Objective Data
-
Intake and Output
01/31/25 02/01/25 02/02/25
06:59 06:59 06:59
Intake Total 3390 / 3390 1730 / 1730
Balance 3390 / 3390 1730 / 1730
Intake:
Oral fluids 640 / 640 480 / 480
IV fluids (Total) 2750 / 2750 900 / 900
IV piggybacks 350 / 350
Other:
Number of approximated MODERATE 3 1
amounts of urine
Vital Signs
Temp Pulse Resp BP Pulse Ox
97.5 F 95 20 182/103 96
02/01/25 15:30 02/01/25 15:30 02/01/25 15:30 02/01/25 18:19 02/01/25 15:30
Lab Results
02/01/25 08:38
02/01/25 08:38
Calcium 8.8 mg/dl (8.4-10.2) 02/01/25 08:38
Magnesium 1.6 mg/dl (1.6-2.3) 02/01/25 08:38
Total Bilirubin 0.9 mg/dl (0.2-1.3) 02/01/25 08:38
AST 62 U/L (14-36) H 02/01/25 08:38
ALT 237 U/L (0-35) H 02/01/25 08:38
Alkaline Phosphatase 123 U/L (38-126) 02/01/25 08:38
Total Protein 5.2 g/dl (6.3-8.2) L 02/01/25 08:38
Albumin 2.9 g/dl (3.5-5.0) L 02/01/25 08:38
Physical Exam
-
Gen: NAD, uncomfortable from pain
Resp: supplemental O2 and mild increased WOB
Abd: soft, mild diffuse tenderness, distended, non-peritoneal
Patient has a gaytan catheter: No
Patient has a central line: No
[2025-02-01] MEDS: TYLENOL 650 MG PO (21:39)
[2025-02-01] MEDS: AUGMENTIN 875 MG/125 MG 1 TABLET PO (21:40)
[2025-02-01 22:45] VITALS: BP 146/86
[2025-02-01 23:00] VITALS: BP 186/96
[2025-02-02] MEDS: DILAUDID 1 MG IV ×5 (03:32→22:10)
[2025-02-02 06:00] VITALS: BMI 27.5
[2025-02-02] MEDS: LR 1000 IV (06:31)
--- NOTE | 2025-02-02 07:14 | PTCARENOTE ---
Patient's blood pressure elevated at 186/96. ELENI Bingham notified. This RN checked manual blood pressure, 146/86. ELENI Bingham notified.
[2025-02-02 07:29] LABS: % Basophils 0.5 % (0-2); % Eosinophils 2.5 % (0-6); % Immature Granulocytes 0.9 % (0-0.5); % Lymphocytes 11.1 % (20.5-51.1); % Monocytes 7.4 % (1.7-9.3); % Neutrophils 77.6 % (42.2-75.2); Absolute Basophils 0.1 10^3/uL (0-0.2); Absolute Eosinophils 0.3 10^3/uL (0-0.7); Absolute Immature Granulocytes 0.1 10^3/uL (0-0.05); Absolute Lymphocytes 1.2 10^3/uL (1.2-3.4); Absolute Monocytes 0.8 10^3/uL (0.1-0.6); Absolute Neutrophils 8.6 10^3/uL (1.4-6.5); Hematocrit 32.4 % (37.0-47.0); Hemoglobin 10.8 g/dL (12.0-16.0); Mean Corp Hgb Conc. 33.3 g/dL (33.0-37.0); Mean Corpuscular Hgb 28.7 pg (27.0-31.0); Mean Corpuscular Volume 86.2 fL (81.0-99.0); Mean Platelet Volume 10.6 fL (7.4-10.4); Nucleated Red Blood Cells % 0 %; Platelet Count 311 10^3/uL (130-400); Red Blood Cell Count 3.76 10^6/uL (4.20-5.40); Red Cell Dist. Width 12.8 % (11.5-14.5); White Blood Cell Count 11.1 10^3/uL (4.8-10.8)
[2025-02-02 07:41] LABS: ALT (SGPT) 195 U/L (0-35); AST (SGOT) 46 U/L (14-36); Albumin 3.2 g/dl (3.5-5.0); Alkaline Phosphatase 132 U/L (38-126); Blood Urea Nitrogen 6 mg/dl (7-17); Calcium 9.1 mg/dl (8.4-10.2); Carbon Dioxide 27 mmol/L (22-30); Chloride 102 mmol/L (98-107); Estimated Creatinine Clearance 66 ml/min; Glucose 71 mg/dl (70-99); Potassium 3.5 mmol/L (3.5-5.1); Sodium 138 mmol/L (135-145); Total Bilirubin 0.9 mg/dl (0.2-1.3); Total Protein 5.5 g/dl (6.3-8.2); eGFR > 60.00
[2025-02-02] MEDS: NORVASC 2.5 MG PO ×3 (07:43→10:41)
[2025-02-02] MEDS: PROTONIX IV 40 MG IV ×2 (07:44→20:36)
[2025-02-02] MEDS: AUGMENTIN 875 MG/125 MG 1 TABLET PO ×2 (07:44→20:36)
[2025-02-02] MEDS: NSS (PRESERVATIVE FREE) 10 ML IV ×2 (07:44→20:37)
[2025-02-02] MEDS: LIDOCAINE 4% PATCH 1 PATCH TOPICAL (07:45)
[2025-02-02 08:01] VITALS: BP 204/96
--- NOTE | 2025-02-02 09:49 | W.PN.HOSP.TC ---
Today's Communication/Plan
-
Continue to monitor on telemetry
See plan
Assessment / Plan
Assessment / Plan
Physical Exam
General: Not in acute distress
HEENT: Normocephalic. Moist mucous membranes
Respiratory: Clear to Auscultation Bilaterally
Cardiac: S1/S2 and Regular Rhythm
GI: Positive bowel sounds. Soft and non tender, no guarding
Musculoskeletal: No Cyanosis and No Edema
Skin: Warm and Dry
Neuro: Awake, Alert, Oriented and Nonfocal/grossly intact
Psych: Calm
Assessment/Plan
# Acute pancreatitis
Gall stone pancreatitis versus post ERCP? Biopsy Pancreatitis
She developed pain over night, lipase slightly lower than admission level. Bilirubin and liver enzymes came down
No fevers
Stopped IV Abx -- per GI, does not need antibiotics for anything related to GI
Clear liquids diet
Status post IV fluids
Change to IV PPI
Pain medicine with IV Dilaudid as needed -- but try to minimize opiods
Monitor clinical status
# Choledocholithiasis
Elevated LFTs
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 Due for repeat EGD on 02/15/2025
Prior history of choledocholithiasis status post ERCP (last one performed 08/05/2024)
History of gallstones and gallbladder sludge
Elevated lipase
Status post ERCP with biopsy in the ampullectomy scar, removal of a stone by balloon extraction, pancreatic splenectomy, pancreatic stent placement.
Discussed with GI, recommended surgery consultation.
Appreciate GI and surgery help. For OP follow up for GB removal
Abdominal x-ray in 2 weeks-to check on pancreatic stent
#Severe Bilateral Lower Abdominal and Lower Back Pain
-Ordered repeat CT Abdomen Pelvis, but this time to include oral contrast --> showed recent pancreatitis and associated edema
-No need for gastrointestinal-specific antibiotics
-Consulted general surgery -- no concerns from their standpoint
-Continue clear liquids diet for now
-Significant abdominal pain again after Miralax on 02/02/25: check abdominal x-ray
-Trial of Bentyl per GI (ordered on February 02, 2025)
#Bibasilar opacities suggestive of airspace consolidation and small pleural effusions with component of pneumonia unable to be excluded on 01/31/25 chest x-ray
#Cough, Congestion
#Leukocytosis suspected from pneumonia vs. reactive to pancreatitis
-Antibiotics for pneumonia
-Speech evaluation -- they are following
-Pulmonary consult given CT findings earlier this admission and current chest x-ray findings
#Benign Hypertension
Blood pressure now high suspected due to pain
hold lisinopril in setting of pancreatitis, although doubt it as etiology
-Changed Metoprolol to Coreg
-Hold HCTZ
-Started Amlodipine -- dose increased on 02/02/25
-PRN Hydralazine
#Hyperlipidemia
-Hold Simvastatin
#GERD
-Continue Protonix
Speech (as of 01/31/25): no signs of aspiration with thin liquids. Will assess with solids if when medically cleared.
DVT Prophylaxis: Lovenox
Code Status: Full Code
On 01/31/25, I spoke with patient's daughter and , and answered all of their questions and concerns to satisfaction.
On 02/01/25, I spoke with patient's daughter and , and answered all of their questions and concerns to satisfaction.
On 02/02/25, I spoke with patient's daughter and , and answered all of their questions and concerns to satisfaction.
Anticipated Discharge: 24 - 48 hours
Subjective/Interval History
-
Date of Service: February 02, 2025
Patient was seen and examined. She reported feeling better today. Pain is better.
Objective Data
-
Labs:
Laboratory Results
02/02/25
06:13
WBC 11.1 H
Hgb 10.8 L
Hct 32.4 L
Plt Count 311 D
Sodium 138
Potassium 3.5
Chloride 102
Carbon Dioxide 27
BUN 6 L
Creatinine 0.6
Glucose 71
Calcium 9.1
Total Bilirubin 0.9
AST 46 H
ALT 195 H
Alkaline Phosphatase 132 H
Vital Signs:
Vital Signs
Temp Pulse Resp BP Pulse Ox
98.3 F 94 18 204/96 96
02/02/25 08:01 02/02/25 08:01 02/02/25 08:01 02/02/25 08:01 02/02/25 08:01
I&O
02/01/25 02/02/25 02/03/25
06:59 06:59 06:59
Intake Total 1730 / 1730 880 / 880
Balance 1730 / 1730 880 / 880
--- NOTE | 2025-02-02 11:46 | W.PN.GI.CBS2 ---
Today's Communication / Plan
-
advance to low fat diet as tolerated
Assessment / Plan
-
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
08/05/2024 showing stone in CBD. Hyperechoic material consistent with sludge in gallbladder body. ERCP was performed on the same day Defect consistent with stone was seen on cholangiogram, the common bile duct was dilated. Complete removal
accomplished by balloon extraction. Sphincterotomy performed. Biliary tree was swept and debris was found.. CBD dilated. Complete removal of stone accomplished by balloon extraction. That showed polypoid lesion noted after balloon sweep,
removed with cold snare. Polypectomy removed. Biopsies taken and ampullectomy scar (adenoma) Coagulation for destruction of remaining portion of the area using APC. Repeat Endoscopic exam recommended in 6 months and was scheduled for 02/15/25.
Patient presented to the emergency room on 01/27/2025 with acute onset of abdominal pain in the right upper quadrant that radiated through the back associated with nausea with 2 episodes of bilious vomiting. Patient was found to have elevated LFTs
upon arrival, total bilirubin 1.4, AST of 477, ALT of 233 and alk phos of 135 and lipase of 1254. We are asked to evaluate for the same.
, ERCP
- Prior endoscopic papillectomy. No obvious residual /
recurrent adenoma was observed.
- Biopsy was performed in the ampullectomy scar.
- A filling defect consistent with a stone was seen on
the cholangiogram.
- Choledocholithiasis was found. Complete removal was
accomplished by balloon extraction.
- A pancreatic sphincterotomy was performed.
- One pancreatic stent was placed into the ventral
pancreatic duct.
- The biliary tree was swept and sludge was found.
- Await path results.
- Perform a flat plate abdominal x-ray in 2 weeks.
- Return to my office in 2 months.
Impression:
RUQ pain
Elevated LFTs
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 Due for repeat EGD on 02/15/2025
Prior history of choledocholithiasis status post ERCP (last one performed 08/05/2024)
History of gallstones and gallbladder sludge
Elevated lipase
01/29/2025 clinically much improved with no significant abdominal pain. No more nausea or vomiting. Tolerated breakfast well
-- Will need abdominal x-ray in 2 weeks to look for the pancreatic stent, await path results from the ampullary biopsy and return to Dr. Hollingsworth's outpatient appointment in 2 months
-- Needs surgical consult for elective cholecystectomy in the setting of 2 episodes of choledocholithiasis requiring ERCP -discussed with Dr. Mcneil and primary team
-- Bilirubin climbed slightly today. ALT and AST have improved. Likely discharge after surgical consult and as long as total bilirubin is going in the right direction
-- Would repeat LFTs in 1 week to ensure improvement
-- Regular diet from a GI standpoint
01/30/25 -this morning developed significant diffuse abdominal pain into her back concern for pancreatitis
-- Lipase has been elevated throughout the procedure
-- She also underwent ERCP on 01/28/2025 and therefore we will proceed to CT scan with IV contrast without oral contrast
-- Etiology could be pancreatitis post ERCP versus ampullary biopsy versus cholecystitis
-- Last dose of Zosyn was yesterday, pending results may need to restart
-- Getting 250 lactated Ringer's
-- Added a dose of Ativan now, pain control, antiemetics
01/31/2025 -CT scan done yesterday with IV contrast shows a proximal pancreatic duct extending into the duodenum with mild stranding about the duodenum and celiac axis potentially pancreatitis versus duodenitis. No oral contrast was given since she
was so nauseous. no discrete pancreatic or peripancreatic stranding around the body or tail.
-- Likely ileus, suppository, alternate Toradol and Dilaudid, monitor hemoglobin, no active signs of bleeding
Clear liquids as tolerated, IV fluids, okay for Lovenox
NO need for antibiotics from a pancreatitis standpoint but if you think she has pneumonia it would need treated. The leukocytosis will be reactive
02/01/2025
Continues to have abdominal pain. Awaiting repeat CT abd with oral contrast . No leukocytosis. AST/ALT trending down. Lipase normal at 177 ( 01/31/2025)
02/02/[address] abd/pel with cont
IMPRESSION: Small to moderate bilateral pleural effusions with adjacent atelectasis.
Diffuse subcutaneous edema as described.
Slight heterogeneity of the gallbladder lumen, and could represent noncalcified gallstones. There is mild to moderate intrahepatic bile duct dilation. Dilation of the superior aspect of the common bile duct. No CT evidence for calcified bile duct
calculus.
There is a stent within the head of the pancreas, extending into the duodenum.
Edema surrounding the SMA, posterior to the pancreas, likely edema from recent pancreatitis. No evidence for macroscopic necrosis of the pancreas, with no evidence for abscess or developing pseudocyst.
Small amount of free fluid within the abdomen and pelvis as described.
plan
Patient tolerating liquid diet. Okay to advance to low-fat diet
Advised on ambulation
Bowel regimen
Surgical note reviewed-outpatient colonoscopy
Follow-up with Dr. Hollingsworth as outpatient
Abdominal x-ray in 2 weeks-to check on pancreatic stent
Total Time Spent with Patient (in minutes): 35
Subjective
Subjective
Date of Service: February 02, 2025
Abdominal bloating sensation/pain is better today. Tolerating liquid diet. No BM
Objective
Data Reviewed
Laboratory Data:
Laboratory Results
02/02/25 06:13
02/02/25 06:13
Laboratory Results
PT 13.1 Sec (11.4-14.6) 01/30/25 06:36
INR 0.96 01/30/25 06:36
Magnesium 2.0 mg/dl (1.6-2.3) 02/02/25 06:13
Total Bilirubin 0.9 mg/dl (0.2-1.3) 02/02/25 06:13
AST 46 U/L (14-36) H 02/02/25 06:13
ALT 195 U/L (0-35) H 02/02/25 06:13
Alkaline Phosphatase 132 U/L (38-126) H 02/02/25 06:13
Lipase 177 U/L (23-300) 01/31/25 06:27
Vital Signs and I&O:
Vital Signs
Temp Pulse Resp BP Pulse Ox
98.3 F 94 18 180/85 96
02/02/25 08:01 02/02/25 08:01 02/02/25 08:01 02/02/25 10:41 02/02/25 08:01
I&O
02/01/25 02/02/25 02/03/25
06:59 06:59 06:59
Intake Total 1730 / 1730 880 / 880
Balance 1730 / 1730 880 / 880
Physical Exam
Physical Exam
GI: Soft, Distended and Non Tender
[2025-02-02] MEDS: MIRALAX 17 GRAMS PO (12:36)
[2025-02-02] MEDS: DILAUDID 0.5 MG IV (12:39)
[2025-02-02] MEDS: LR IV (12:55)
--- NOTE | 2025-02-02 14:31 | W.PN.PUL3 ---
Today's Communication / Plan
-
Complete 7 days of antibiotics
Incentive spirometer
Increase mobility as able
Continue management per pancreatitis
Recommend outpatient pulmonary follow-up to document resolution of infiltrates.
No additional recommendation from the pulmonary perspective-sign off
Assessment
-
79-year-old woman with past medical history noted. Admitted for abdominal pain. Found to have choledocholithiasis. Underwent ERCP 01/28/2025. Subsequently during the hospital stay developed some hypoxemia. Found to have some bibasilar
infiltrates. I was consulted on 01/31/2025 for evaluation of this.
Bilateral infiltrates on CT abdomen pelvis lung cuts-initially present 01/30/2025. Not present on CT abdomen pelvis 01/27/2025.
Bibasilar atelectasis due to hypoventilation due to abdominal pain/bilateral pleural effusions possibly from pancreatitis.
Cannot rule out aspiration event postprocedure
Afebrile
Hypoxemic respiratory failure currently on 4 L
Acute pancreatitis-? Post ERCP versus gallstone pancreatitis status post ERCP 01/28/2025.
Choledocholithiasis on admission
History of ampullary adenoma status post ampullectomy last procedure 08/05/2024
Conditions present prior admission:
GERD
Hypertension
Hypercholesterolemia
History of ampullary adenoma-history of endoscopic ampullectomy
Colon polyps
-
Assessment and plan:
-
Stable from the pulmonary perspective-remains on 4 L per
Denies significant phlegm production.
Lung exam relatively clear
-
Imaging reviewed: CT abdomen pelvis lung cuts demonstrate that on 01/27/2025 there was no evidence for infiltrates on admission.
Underwent ERCP 01/28/2025.
On 01/30/[address] abdomen pelvis demonstrating bibasilar infiltrates.
Subsequent CT abdomen pelvis 01/31/2025 to evaluate for pancreatitis demonstrated worsening bibasilar opacities suggestive of atelectasis versus pneumonia. Small bilateral pleural effusions.
-
Appearance more consistent with bibasilar subsegmental atelectasis
Continue-incentive spirometry
Increase mobility as able.
-
Cannot rule out aspiration event during ERCP. Would complete total 7 days of antibiotics and observe.
Small bilateral pleural effusions due to low albumin and pancreatitis.
Currently on 4 L nasal cannula-denies shortness of breath ambulating to the restroom.Wean down as able.
Home oxygen assessment prior to discharge.
-
Patient has been on antibiotics Zosyn for intra-abdominal process. Transitioned to Augmentin.
No significant leukocytosis
Afebrile
Analgesia -avoid hypoventilation.
-
Management of pancreatitis per gastroenterology and hospital service.
-
Increase mobility as able.
-
Will need radiographic follow-up in the outpatient setting.
-
Will continue to follow.
Subjective Data
-
Date of Service:
Date of Service: February 02, 2025
Objective Data
Data Reviewed
Vital Signs / I&O / Oxygen:
Vital Signs
Temp Pulse Resp BP Pulse Ox
98.3 F 94 18 180/85 96
02/02/25 08:01 02/02/25 08:01 02/02/25 08:01 02/02/25 10:41 02/02/25 08:01
Intake and Output
02/01/25 02/02/25 02/03/25
06:59 06:59 06:59
Intake Total 1730 / 1730 880 / 880
Balance 1730 / 1730 880 / 880
SaO2 96
Nasal Cannula flow liters per 4
minute
Labs/Micro/Reports
Lab Data
02/02/25 06:13
02/02/25 06:13
Microbiology
01/28/25 13:57 Blood/Venous Blood Culture - Final
No Growth - Final Report
01/28/25 13:22 Blood/Venous Blood Culture - Final
No Growth - Final Report
01/31/25 16:53 Nose MRSA Screen - Final
No Methicillin Resistant Staphylococcus aureus isolated.
01/31/25 16:50 Nasal Swab Influenza Types A & B ([facility]DA) - Final
Negative for Influenza A & B, NAAT
Negative results must be combined with clinical observations
and patient history.
Nucleic Acid Amplification test (NAAT)performed on the
[employer] platform.
[2025-02-02 15:00] VITALS: BP 180/78
--- NOTE | 2025-02-02 15:06 | CM ---
Patient seen at bedside with terrell Webber
Oxygen at 2L, low fat diet
PLAN: Home, no needs anticipated, will continue to follow
[2025-02-02] MEDS: ZOFRAN 4 MG IV (15:51)
[2025-02-02 16:00] VITALS: BP 180/78
[2025-02-02] MEDS: BENTYL 10 MG PO ×2 (18:21→22:11)
[2025-02-02] MEDS: LOVENOX 40 MG SC (18:21)
[2025-02-02] MEDS: TOPROL XL PO (19:57)
[2025-02-02 23:00] VITALS: BP 175/82
[2025-02-03] MEDS: DILAUDID 1 MG IV (01:34)
[2025-02-03 05:57] VITALS: BMI 27.1
[2025-02-03 06:23] LABS: % Basophils 0.6 % (0-2); % Eosinophils 3.2 % (0-6); % Immature Granulocytes 0.9 % (0-0.5); % Lymphocytes 16.4 % (20.5-51.1); % Monocytes 9.7 % (1.7-9.3); % Neutrophils 69.2 % (42.2-75.2); Absolute Basophils 0.1 10^3/uL (0-0.2); Absolute Eosinophils 0.3 10^3/uL (0-0.7); Absolute Immature Granulocytes 0.1 10^3/uL (0-0.05); Absolute Lymphocytes 1.7 10^3/uL (1.2-3.4); Hematocrit 29.5 % (37.0-47.0); Hemoglobin 10.2 g/dL (12.0-16.0); Mean Corp Hgb Conc. 34.6 g/dL (33.0-37.0); Mean Corpuscular Hgb 29.7 pg (27.0-31.0); Mean Corpuscular Volume 85.8 fL (81.0-99.0); Mean Platelet Volume 10.1 fL (7.4-10.4); Nucleated Red Blood Cells % 0 %; Platelet Count 305 10^3/uL (130-400); Red Blood Cell Count 3.44 10^6/uL (4.20-5.40); Red Cell Dist. Width 12.7 % (11.5-14.5); White Blood Cell Count 10.1 10^3/uL (4.8-10.8)
[2025-02-03 06:43] LABS: ALT (SGPT) 137 U/L (0-35); AST (SGOT) 28 U/L (14-36); Albumin 2.8 g/dl (3.5-5.0); Alkaline Phosphatase 104 U/L (38-126); Blood Urea Nitrogen 5 mg/dl (7-17); Calcium 8.8 mg/dl (8.4-10.2); Carbon Dioxide 29 mmol/L (22-30); Chloride 103 mmol/L (98-107); Estimated Creatinine Clearance 66 ml/min; Glucose 95 mg/dl (70-99); Magnesium 1.9 mg/dl (1.6-2.3); Potassium 3.3 mmol/L (3.5-5.1); Sodium 137 mmol/L (135-145); Total Bilirubin 0.7 mg/dl (0.2-1.3); eGFR > 60.00
[2025-02-03 07:05] VITALS: BP 176/83
[2025-02-03] MEDS: AUGMENTIN 875 MG/125 MG 1 TABLET PO ×2 (07:27→20:29)
[2025-02-03] MEDS: NORVASC 10 MG PO (07:27)
[2025-02-03] MEDS: MIRALAX 17 GRAMS PO (07:28)
[2025-02-03] MEDS: NSS (PRESERVATIVE FREE) 10 ML IV ×2 (07:28→20:29)
[2025-02-03] MEDS: LIDOCAINE 4% PATCH 1 PATCH TOPICAL (07:28)
[2025-02-03] MEDS: BENTYL 10 MG PO ×2 (07:28→12:31)
[2025-02-03] MEDS: PROTONIX IV 40 MG IV ×2 (07:28→20:30)
[2025-02-03] MEDS: APRESOLINE 5 MG IV ×2 (07:47→15:58)
--- NOTE | 2025-02-03 07:55 | CON.CAR ---
Consultation
Consultation Request
Date/Time Consultation Requested: 02/02/2025 6 PM
Date/Time Consultation Performed: 02/03/2025 8 AM
Requesting Provider: Dr Olivera
Performing Provider: Dr. Rosa
Reason for Consultation: Hypertension. Aortic stenosis
Medical History
-
History of Present Illness:
79-year-old woman with a history of moderate aortic stenosis, hypertension, and ampullary adectomy and additonal ERCP procedures, who presented with e abdomianl pain. See by GI
, ERCP Prior endoscopic Papillectomy with no residual detected. Choledocholithiasis. Complete removal accomplished.. Pancreatic sphincterotomy and 1 pancreatic stent placed into ventral pancreatic duct. Biliary sludge also noted. Patient
had some increased abdominal pain and has elevated lipase. Patient's been on antihypertensive meds and seen by hospitalist lisinopril and HCTZ being held..
Patient still with abdominal distention and some discomfort. No chest pain or shortness of breath. Prior to hospitalization she was walking and doing other physical activities with no symptoms. Peak and no chest pain shortness of breath
palpitations lightheadedness syncope or near syncope.Palpitations have been well-controlled with metoprolol per her report.
Lipase was up to 1200 now down to 251
-
Patient admitted to hospital service. Initially lisinopril and hydrochlorothiazide held due to acute pancreatitis. Hospitalist was holding meds that have sometimes been associated with pancreatitis
Past medical history
Aortic stenosis
Palpitations
History of ampullary adenoma. Endoscopic ampullectomy 2022 and 2 further endoscopies in 2023 for residual adenoma at the ampulla and ERCP with biliary stent
GERD
Gallstones
Hypertension
Hypercholesterolemia
ECG 02/01/2025 sinus rhythm with nonspecific T wave abnormality
echocardiogram 02/04/2024 ejection fraction 65 to 70% moderate aortic stenosis trace aortic regurgitation. Peak gradient 46 mmHg and a mean gradient 27 mmHg
Echocardiogram 05/2024 ejection fraction greater than 75% moderate aortic stenosis peak gradient 37 mean gradient 21 mmHg
Holter 07/01/2024 sinus rhythm with average heart rate of 79 bpm brief SVT up to 7 beats
Social History
Tobacco: Non-Smoker
Family History
Family History: Reviewed & Not Pertinent
Allergies / Home Medications
Allergy/AdvReac Type Severity Reaction Status Date / Time
No Known Allergies Allergy Verified 01/27/25 18:50
�Medication �Instructions �Recorded �Confirmed �Type
lisinopril 20 1 tab PO HS Blood Pressure 03/11/23 01/27/25 History
mg-hydrochlorothiazide 12.5 mg
tablet
pantoprazole 40 mg tablet,delayed 40 mg PO HS Gastrointestinal Issue 03/11/23 01/27/25 History
release
acetaminophen 325 mg tablet 650 mg (2 x 325 mg) PO Q4HPRN PRN 05/07/24 01/27/25 Rx
mild pain/IRVIN/temp> 100.4F 7 days
#30 tabs
cholecalciferol (vitamin D3) 50 1,200 mcg PO DAILY Supplement 08/05/24 01/27/25 History
mcg (2,000 unit) capsule (Vitamin
D3)
metoprolol succinate 25 mg 25 mg PO QPM Blood Pressure 01/27/25 01/27/25 History
tablet,extended release 24 hr
(Toprol XL)
simvastatin 40 mg tablet (Zocor) 40 mg PO HS cholesterol 01/27/25 01/27/25 History
therapeutic multivitamin 1 tab PO QPM Supplement 01/27/25 01/27/25 History
vitamins A,C,N-oryn-btrmml 2,148 2 tab PO QPM Supplement 01/27/25 01/27/25 History
mcg-113 mg-45 mg-17.4 mg tablet
(PreserVision AREDS)
Review of Systems
-
All other systems: Negative unless noted
Physical Exam
Vital Signs
Temp Pulse Resp BP Pulse Ox
98.5 F 93 16 175/82 97
02/02/25 23:00 02/02/25 23:00 02/02/25 23:00 02/02/25 23:00 02/02/25 23:00
Lab Results
02/03/25 06:05
02/03/25 06:05
Troponin I < 0.012 ng/ml 01/27/25 18:59
Physical Exam
General: Well Developed
HEENT: Normocephalic, Anicteric and Moist Mucous Membranes
Respiratory: Clear and Wheezes
Cardiac: Regular Rhythm and Murmur (Systolic murmur present)
GI: Soft, Non Tender, Distended (Nontender with light palpation) and Other (No mass detected but limited exam due to degree of distention. Few bowel sounds auscultated)
Musculoskeletal: No Clubbing, No Cyanosis and No Edema
Skin: Warm
Impression / Plan
-
Abdominal pain previous history of ampullary adenoma status post ampullectomy and prior procedures for residual tissue. Patient with ERCP 01/28/2025 which included treatment for choledocholithiasis as well as biliary sludge. Patient also with
pancreatic stent. Patient then developed some increased pain in had lipase of 1200 now down to 251. Patient still with significant abdominal distention
-Additional management as directed by GI
-Possible cholecystectomy in future
.
Hypertension.
-Elevated blood pressure
- as outpatient was on lisinopril and HCTZ as well as metoprolol low-dose.
- agree with holding HCTZ
-Lisinopril was Stopped in the hospital on 01/30/2025. changed to amlodipine this admission. Still having some issues with hypertension.
-Would recommend resuming lisinopril for additional blood pressure control. It appears it was stopped on 01/30/2025 due to evidence of pancreatitis.. Would be extremely unlikely that lisinopril would be the cause for her pancreatitis. Would agree
with stopping if this was idiopathic pancreatitis but patient has recent ERCP, and choledocholithiasis and sludge.Can start at lower dose since patient is already receiving amlodipine. Note that blood pressure control may improve As abdominal
discomfort improvesol
.
Aortic stenosis. Moderate
-Asymptomatic
.
.Preprocedure cardiovascular examination. As per some of the notes patient may require cholecystectomy in the future. This would be after additional recovery from her acute issues including pancreatitis. Preprocedure patient was active and
performing greater than 4 METS without symptoms. She has had no symptoms to suggest angina and no evidence of CHF. Patient has moderate aortic stenosis which has been asymptomatic. Overall patient appears stable from a cardiovascular standpoint
if she requires cholecystectomy. No additional testing required. I would recommend she remains on her beta-charity
.
Will see as needed
.
Data Reviewed
-
EKG: Report Reviewed by me
Radiology: Report Reviewed by me
Medical Tests (Nuc Med, Echo etc): Report Reviewed by me
Labs: Labs Reviewed by me
[2025-02-03 08:24] LABS: Lipase 251 U/L (23-300)
--- NOTE | 2025-02-03 09:22 | W.PN.HOSP.TC ---
Today's Communication/Plan
-
See plan. Continues with ileus and abdominal pain. Added Senna.
Added Lisinopril small dose daily.
Assessment / Plan
Assessment / Plan
Physical Exam
General: Not in acute distress
HEENT: Normocephalic. Moist mucous membranes
Respiratory: Clear to Auscultation Bilaterally
Cardiac: S1/S2 and Regular Rhythm
GI: Positive bowel sounds. Soft and non tender, no guarding
Musculoskeletal: No Cyanosis and No Edema
Skin: Warm and Dry
Neuro: Awake, Alert, Oriented and Nonfocal/grossly intact
Psych: Calm
Assessment/Plan
# Acute pancreatitis
Gall stone pancreatitis versus post ERCP? Biopsy Pancreatitis
She developed pain over night, lipase slightly lower than admission level. Bilirubin and liver enzymes came down
No fevers
Stopped IV Abx -- per GI, does not need antibiotics for anything related to GI
Clear liquids diet
Status post IV fluids
Change to IV PPI
Pain medicine with IV Dilaudid as needed -- but try to minimize opiods
Monitor clinical status
# Choledocholithiasis
Elevated LFTs
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 Due for repeat EGD on 02/15/2025
Prior history of choledocholithiasis status post ERCP (last one performed 08/05/2024)
History of gallstones and gallbladder sludge
Elevated lipase
Status post ERCP with biopsy in the ampullectomy scar, removal of a stone by balloon extraction, pancreatic splenectomy, pancreatic stent placement.
Discussed with GI, recommended surgery consultation.
Appreciate GI and surgery help. For OP follow up for GB removal
Abdominal x-ray in 2 weeks-to check on pancreatic stent
#Severe Bilateral Lower Abdominal and Lower Back Pain
-Ordered repeat CT Abdomen Pelvis, but this time to include oral contrast --> showed recent pancreatitis and associated edema
-No need for gastrointestinal-specific antibiotics
-Consulted general surgery -- no concerns from their standpoint
-Continue clear liquids diet for now
-Significant abdominal pain again after Miralax on 02/02/25: abdominal x-ray with ileus and constipation
-Trial of Bentyl per GI (ordered on February 02, 2025)
-Add Senna
-Ambulate
#Bibasilar opacities suggestive of airspace consolidation and small pleural effusions with component of pneumonia unable to be excluded on 01/31/25 chest x-ray
#Cough, Congestion
#Leukocytosis suspected from pneumonia vs. reactive to pancreatitis
-Antibiotics for pneumonia
-Speech evaluation -- they are following
-Pulmonary consult given CT findings earlier this admission and current chest x-ray findings
#Benign Hypertension
Blood pressure now high suspected due to pain
-Continue Metoprolol
-Hold HCTZ given limited oral intake
-Okay to continue Lisinopril since pancreatitis was from ERCP, not Lisinopril (if it was idiopathic pancreatitis, then would be reasonable to stop the Lisinopril)
-Start low dose Lisinopril 2.5 mg daily starting on 02/03/25
-Started Amlodipine -- dose increased on 02/02/25 -- continue Amlodipine 10 mg daily
-PRN Hydralazine
-See Dr. Rosa's note from 02/03/25
#Hyperlipidemia
-Hold Simvastatin
#GERD
-Continue Protonix
Speech (as of 01/31/25): no signs of aspiration with thin liquids. Will assess with solids if when medically cleared.
DVT Prophylaxis: Lovenox
Code Status: Full Code
On 01/31/25, I spoke with patient's daughter and , and answered all of their questions and concerns to satisfaction.
On 02/01/25, I spoke with patient's daughter and , and answered all of their questions and concerns to satisfaction.
On 02/02/25, I spoke with patient's daughter, and answered all of her questions and concerns to satisfaction.
On 02/03/25, I spoke with patient's daughter, and answered all of her questions and concerns to satisfaction.
Anticipated Discharge: 24 - 48 hours
Subjective/Interval History
-
Date of Service: February 03, 2025
Patient was seen and examined. She was still in pain.
Objective Data
-
Labs:
Laboratory Results
02/03/25
06:05
WBC 10.1
Hgb 10.2 L
Hct 29.5 L
Plt Count 305
Sodium 137
Potassium 3.3 L
Chloride 103
Carbon Dioxide 29
BUN 5 L
Creatinine 0.6
Glucose 95
Calcium 8.8
Total Bilirubin 0.7
AST 28
ALT 137 H
Alkaline Phosphatase 104
Vital Signs:
Vital Signs
Temp Pulse Resp BP Pulse Ox
98.2 F 87 18 176/83 96
02/03/25 07:05 02/03/25 07:05 02/03/25 07:05 02/03/25 07:05 02/03/25 07:05
I&O
02/02/25 02/03/25 02/04/25
06:59 06:59 06:59
Intake Total 880 / 880 360 / 360
Balance 880 / 880 360 / 360
[2025-02-03] MEDS: ZOFRAN 4 MG IV ×2 (09:40→20:48)
[2025-02-03 09:45] VITALS: BP 130/56
[2025-02-03] MEDS: SENOKOT-S 1 TABLET PO ×2 (09:46→20:30)
--- NOTE | 2025-02-03 11:19 | CM ---
Patient seen at bedside with daughter
on room air, off IVF - On Clear liquid diet
PLAN; Home, no needs anticipated
[2025-02-03] MEDS: KCL ELIXIR 40 MEQ PO (13:08)
--- NOTE | 2025-02-03 13:40 | W.PN.GI.CBS2 ---
Today's Communication / Plan
-
continue current medical mx
Assessment / Plan
-
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
08/05/2024 showing stone in CBD. Hyperechoic material consistent with sludge in gallbladder body. ERCP was performed on the same day Defect consistent with stone was seen on cholangiogram, the common bile duct was dilated. Complete removal
accomplished by balloon extraction. Sphincterotomy performed. Biliary tree was swept and debris was found.. CBD dilated. Complete removal of stone accomplished by balloon extraction. That showed polypoid lesion noted after balloon sweep,
removed with cold snare. Polypectomy removed. Biopsies taken and ampullectomy scar (adenoma) Coagulation for destruction of remaining portion of the area using APC. Repeat Endoscopic exam recommended in 6 months and was scheduled for 02/15/25.
Patient presented to the emergency room on 01/27/2025 with acute onset of abdominal pain in the right upper quadrant that radiated through the back associated with nausea with 2 episodes of bilious vomiting. Patient was found to have elevated LFTs
upon arrival, total bilirubin 1.4, AST of 477, ALT of 233 and alk phos of 135 and lipase of 1254. We are asked to evaluate for the same.
, ERCP
- Prior endoscopic papillectomy. No obvious residual /
recurrent adenoma was observed.
- Biopsy was performed in the ampullectomy scar.
- A filling defect consistent with a stone was seen on
the cholangiogram.
- Choledocholithiasis was found. Complete removal was
accomplished by balloon extraction.
- A pancreatic sphincterotomy was performed.
- One pancreatic stent was placed into the ventral
pancreatic duct.
- The biliary tree was swept and sludge was found.
- Await path results.
- Perform a flat plate abdominal x-ray in 2 weeks.
- Return to my office in 2 months.
Impression:
RUQ pain
Elevated LFTs
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 Due for repeat EGD on 02/15/2025
Prior history of choledocholithiasis status post ERCP (last one performed 08/05/2024)
History of gallstones and gallbladder sludge
Elevated lipase
01/29/2025 clinically much improved with no significant abdominal pain. No more nausea or vomiting. Tolerated breakfast well
-- Will need abdominal x-ray in 2 weeks to look for the pancreatic stent, await path results from the ampullary biopsy and return to Dr. Hollingsworth's outpatient appointment in 2 months
-- Needs surgical consult for elective cholecystectomy in the setting of 2 episodes of choledocholithiasis requiring ERCP -discussed with Dr. Mcneil and primary team
-- Bilirubin climbed slightly today. ALT and AST have improved. Likely discharge after surgical consult and as long as total bilirubin is going in the right direction
-- Would repeat LFTs in 1 week to ensure improvement
-- Regular diet from a GI standpoint
01/30/25 -this morning developed significant diffuse abdominal pain into her back concern for pancreatitis
-- Lipase has been elevated throughout the procedure
-- She also underwent ERCP on 01/28/2025 and therefore we will proceed to CT scan with IV contrast without oral contrast
-- Etiology could be pancreatitis post ERCP versus ampullary biopsy versus cholecystitis
-- Last dose of Zosyn was yesterday, pending results may need to restart
-- Getting 250 lactated Ringer's
-- Added a dose of Ativan now, pain control, antiemetics
01/31/2025 -CT scan done yesterday with IV contrast shows a proximal pancreatic duct extending into the duodenum with mild stranding about the duodenum and celiac axis potentially pancreatitis versus duodenitis. No oral contrast was given since she
was so nauseous. no discrete pancreatic or peripancreatic stranding around the body or tail.
-- Likely ileus, suppository, alternate Toradol and Dilaudid, monitor hemoglobin, no active signs of bleeding
Clear liquids as tolerated, IV fluids, okay for Lovenox
NO need for antibiotics from a pancreatitis standpoint but if you think she has pneumonia it would need treated. The leukocytosis will be reactive
02/01/2025
Continues to have abdominal pain. Awaiting repeat CT abd with oral contrast . No leukocytosis. AST/ALT trending down. Lipase normal at 177 ( 01/31/2025)
02/02/[address] abd/pel with cont
IMPRESSION: Small to moderate bilateral pleural effusions with adjacent atelectasis.
Diffuse subcutaneous edema as described.
Slight heterogeneity of the gallbladder lumen, and could represent noncalcified gallstones. There is mild to moderate intrahepatic bile duct dilation. Dilation of the superior aspect of the common bile duct. No CT evidence for calcified bile duct
calculus.
There is a stent within the head of the pancreas, extending into the duodenum.
Edema surrounding the SMA, posterior to the pancreas, likely edema from recent pancreatitis. No evidence for macroscopic necrosis of the pancreas, with no evidence for abscess or developing pseudocyst.
Small amount of free fluid within the abdomen and pelvis as described.
02/03
No BM. Started on dicyclomine yesterday. Patient did not require opioids has been nursing since last night. No BMs with MiraLAX. Patient has been sitting in the chair today. Denies any back pain or abdominal pain now.Lipase this am normal
abd X ray yesterday
IMPRESSION:
1. Moderate to large amount of fecal material in the proximal colon.
2. Mild distention of small bowel loops (probably an adynamic ileus).
3. Mild air distention of the transverse colon.
4. Large right lower lobe and moderate size left lower lobe airspace consolidations (either pneumonia or atelectasis).
5. Small bilateral pleural effusions.
6. Previous bilateral posterior instrumentation in the lower lumbar spine.
plan
Patient wants to continue on liquid diet today
Advised on ambulation
avoid opioids
continue dicyclomine
Bowel regimen-will add senna to MiraLAX. planned discussed with hospitalist
Surgical note reviewed-outpatient cholecystectomy
Follow-up with Dr. Hollingsworth as outpatient
Abdominal x-ray in 2 weeks-to check on pancreatic stent
Total Time Spent with Patient (in minutes): 35
Subjective
Subjective
Date of Service: February 03, 2025
Sitting on the chair. Claims feeling better. No BM
Objective
Data Reviewed
Laboratory Data:
Laboratory Results
02/03/25 06:05
02/03/25 06:05
Laboratory Results
PT 13.1 Sec (11.4-14.6) 01/30/25 06:36
INR 0.96 01/30/25 06:36
Magnesium 1.9 mg/dl (1.6-2.3) 02/03/25 06:05
Total Bilirubin 0.7 mg/dl (0.2-1.3) 02/03/25 06:05
AST 28 U/L (14-36) 02/03/25 06:05
ALT 137 U/L (0-35) H 02/03/25 06:05
Alkaline Phosphatase 104 U/L (38-126) 02/03/25 06:05
Lipase 251 U/L (23-300) 02/03/25 06:05
Vital Signs and I&O:
Vital Signs
Temp Pulse Resp BP Pulse Ox
98.2 F 95 18 130/56 94
02/03/25 07:05 02/03/25 09:45 02/03/25 07:05 02/03/25 09:45 02/03/25 07:15
I&O
02/02/25 02/03/25 02/04/25
06:59 06:59 06:59
Intake Total 880 / 880 360 / 360
Balance 880 / 880 360 / 360
Physical Exam
Physical Exam
GI: Soft, Distended and Non Tender
[2025-02-03 14:47] VITALS: BMI 27.1
[2025-02-03 15:05] VITALS: BP 168/78
[2025-02-03] MEDS: LOVENOX 40 MG SC (17:09)
[2025-02-03] MEDS: ZESTRIL 2.5 MG PO (17:09)
[2025-02-03] MEDS: TOPROL XL 25 MG PO (17:10)
[2025-02-03] MEDS: TORADOL 15 MG IV (20:50)
[2025-02-03 23:03] VITALS: BP 146/61
[2025-02-04 06:00] VITALS: BMI 26.5
[2025-02-04 06:29] LABS: % Basophils 0.6 % (0-2); % Eosinophils 2.7 % (0-6); % Immature Granulocytes 1.1 % (0-0.5); % Monocytes 10.6 % (1.7-9.3); Absolute Basophils 0.1 10^3/uL (0-0.2); Absolute Eosinophils 0.2 10^3/uL (0-0.7); Absolute Immature Granulocytes 0.1 10^3/uL (0-0.05); Absolute Lymphocytes 1.5 10^3/uL (1.2-3.4); Absolute Monocytes 0.8 10^3/uL (0.1-0.6); Absolute Neutrophils 5.2 10^3/uL (1.4-6.5); Hematocrit 31.4 % (37.0-47.0); Hemoglobin 10.7 g/dL (12.0-16.0); Mean Corp Hgb Conc. 34.1 g/dL (33.0-37.0); Mean Corpuscular Hgb 28.9 pg (27.0-31.0); Mean Corpuscular Volume 84.9 fL (81.0-99.0); Nucleated Red Blood Cells % 0 %; Platelet Count 343 10^3/uL (130-400); White Blood Cell Count 7.8 10^3/uL (4.8-10.8)
--- NOTE | 2025-02-04 06:41 | W.PN.GI.CBS2 ---
Today's Communication / Plan
-
Please see assessment and plan for details.
Assessment / Plan
-
1. CBD stone: Status post ERCP with sphincterotomy and balloon sweep and PD stent, overall doing well, no signs of pancreatitis, LFTs continue to improve. Will plan x-ray to assess stent migration within the next 2 weeks as an outpatient, and
follow-up with Dr. Hollingsworth as an outpatient.
2. Ampullary adenoma: Status post ampullectomy, repeat biopsy with no evidence of recurrent adenoma.
3. Abdominal pain: Likely more secondary to constipation and mild ileus post procedure, now much improved after significant bowel movement, benign exam now. At this point advance diet, and if tolerating is okay to DC from GI standpoint.
Subjective
Subjective
Date of Service: February 04, 2025
Patient then was better overall, had significant bowel movement with improvement in her symptoms. No nausea or vomiting overnight, slept well. No fevers or chills.
Objective
Data Reviewed
Laboratory Data:
Laboratory Results
02/04/25 06:10
Laboratory Results
PT 13.1 Sec (11.4-14.6) 01/30/25 06:36
INR 0.96 01/30/25 06:36
Magnesium 1.9 mg/dl (1.6-2.3) 02/03/25 06:05
Total Bilirubin 0.7 mg/dl (0.2-1.3) 02/03/25 06:05
AST 28 U/L (14-36) 02/03/25 06:05
ALT 137 U/L (0-35) H 02/03/25 06:05
Alkaline Phosphatase 104 U/L (38-126) 02/03/25 06:05
Lipase 251 U/L (23-300) 02/03/25 06:05
Vital Signs and I&O:
Vital Signs
Temp Pulse Resp BP Pulse Ox
98.0 F 90 16 146/61 98
02/03/25 23:03 02/03/25 23:03 02/03/25 23:03 02/03/25 23:03 02/03/25 23:03
I&O
02/02/25 02/03/25 02/04/25
06:59 06:59 06:59
Intake Total 880 / 880 360 / 360 1440 / 1440
Balance 880 / 880 360 / 360 1440 / 1440
Physical Exam
Physical Exam
General: NAD
Abdomen: normal bowel sounds, soft, no tenderness, no masses or bruits, no ascites
[2025-02-04 06:55] LABS: ALT (SGPT) 107 U/L (0-35); AST (SGOT) 27 U/L (14-36); Alkaline Phosphatase 107 U/L (38-126); Blood Urea Nitrogen 9 mg/dl (7-17); Calcium 9.1 mg/dl (8.4-10.2); Carbon Dioxide 29 mmol/L (22-30); Chloride 105 mmol/L (98-107); Estimated Creatinine Clearance 65 ml/min; Glucose 98 mg/dl (70-99); Potassium 3.5 mmol/L (3.5-5.1); Sodium 139 mmol/L (135-145); Total Bilirubin 0.8 mg/dl (0.2-1.3); Total Protein 5.3 g/dl (6.3-8.2); eGFR > 60.00
[2025-02-04 07:05] VITALS: BP 179/83
[2025-02-04] MEDS: MIRALAX 17 GRAMS PO (07:46)
[2025-02-04] MEDS: PROTONIX IV 40 MG IV (07:47)
[2025-02-04] MEDS: NSS (PRESERVATIVE FREE) 10 ML IV (07:47)
[2025-02-04] MEDS: LIDOCAINE 4% PATCH 1 PATCH TOPICAL (07:48)
[2025-02-04] MEDS: ZESTRIL 2.5 MG PO ×2 (07:48→13:21)
[2025-02-04] MEDS: NORVASC 10 MG PO (07:48)
[2025-02-04] MEDS: AUGMENTIN 875 MG/125 MG 1 TABLET PO (07:48)
[2025-02-04] MEDS: SENOKOT-S 1 TABLET PO (07:49)
--- NOTE | 2025-02-04 11:32 | W.PN.HOSP.TC ---
Today's Communication/Plan
-
Discharge today
Assessment / Plan
Assessment / Plan
Physical Exam
General: Not in acute distress
HEENT: Normocephalic. Moist mucous membranes
Respiratory: Clear to Auscultation Bilaterally
Cardiac: S1/S2 and Regular Rhythm
GI: Positive bowel sounds. Soft and non tender, no guarding
Musculoskeletal: No Cyanosis and No Edema
Skin: Warm and Dry
Neuro: Awake, Alert, Oriented and Nonfocal/grossly intact
Psych: Calm
Assessment/Plan
#Acute pancreatitis suspected post-ERCP pancreatitis
She developed pain over night, lipase slightly lower than admission level. Bilirubin and liver enzymes came down
No fevers
Stopped IV Abx -- per GI, does not need antibiotics for anything related to GI
Low Residue Diet
Status post IV fluids
Change to IV PPI
Pain medicine with IV Dilaudid as needed -- but try to minimize opiods
Monitor clinical status
#Choledocholithiasis status post ERCP with sphincterotomy and balloon sweep and PD stent
Elevated LFTs
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 Due for repeat EGD on 02/15/2025
Prior history of choledocholithiasis status post ERCP (last one performed 08/05/2024)
History of gallstones and gallbladder sludge
Elevated lipase
Status post ERCP with biopsy in the ampullectomy scar, removal of a stone by balloon extraction, pancreatic splenectomy, pancreatic stent placement.
Discussed with GI, recommended surgery consultation.
Appreciate GI and surgery help. For OP surgery follow up for GB removal
Abdominal x-ray in 2 weeks-to check on pancreatic stent
Follow-up with community aide Dr. Hollingsworth as an outpatient
#Ampullary adenoma status post ampullectomy, repeat biopsy with no evidence of recurrent adenoma secondary to constipation and mild ileus post procedure, now much improved after significant bowel movement
#Severe Bilateral Lower Abdominal and Lower Back Pain likely more secondary to constipation and mild ileus post procedure, now much improved after significant bowel movement
-Ordered repeat CT Abdomen Pelvis, but this time to include oral contrast --> showed recent pancreatitis and associated edema
-No need for gastrointestinal-specific antibiotics
-Consulted general surgery -- no concerns from their standpoint
-Continue low residue diet
-Continue bowel regimen
-Trial of Bentyl given inpatient, per GI (ordered on February 02, 2025)
-Ambulate as able
#Bibasilar opacities suggestive of airspace consolidation and small pleural effusions with component of pneumonia unable to be excluded on 01/31/25 chest x-ray
#Cough, Congestion
#Leukocytosis suspected from pneumonia vs. reactive to pancreatitis
-Antibiotics for pneumonia -- complete 2 more days of antibiotics
-Speech evaluation -- they are following
-Pulmonary consult given CT findings earlier this admission and current chest x-ray findings
#Small bilateral pleural effusions due to low albumin and pancreatitis.
#Asymptomatic Moderate Aortic Stenosis
#Benign Hypertension
-Suspected blood pressure high due to pain
-Low sodium diet
-Continue Metoprolol
-STOP HCTZ
-Okay to continue Lisinopril since pancreatitis was from ERCP, not Lisinopril (if it was idiopathic pancreatitis, then would be reasonable to stop the Lisinopril)
-Increase Lisinopril to 5 mg daily (patient will need a script for this)
-Continue Amlodipine 10 mg daily
-PRN Hydralazine
-See Dr. Rosa's note from 02/03/25
#Hyperlipidemia
-Hold Simvastatin
#GERD
-Continue Protonix
Speech (as of 01/31/25): no signs of aspiration with thin liquids. Will assess with solids if when medically cleared.
DVT Prophylaxis: Lovenox
Code Status: Full Code
On 01/31/25, I spoke with patient's daughter and , and answered all of their questions and concerns to satisfaction.
On 02/01/25, I spoke with patient's daughter and , and answered all of their questions and concerns to satisfaction.
On 02/02/25, I spoke with patient's daughter, and answered all of her questions and concerns to satisfaction.
On 02/03/25, I spoke with patient's daughter, and answered all of her questions and concerns to satisfaction.
More than 30 minutes spent in discharge including
Final examination of the patient
Summarizing hospital stay
Instructions for continuing care to all relevant caregivers
Preparation of discharge records, prescriptions, and referral forms
Total time spent (in minutes): 39
Anticipated Discharge: Today
Subjective/Interval History
-
Date of Service: February 04, 2025
Patient was seen and examined. She reported feeling much better this morning after having 2 bowel movements. She denied any abdominal pain and would like to go home today.
Objective Data
-
Labs:
Laboratory Results
02/04/25
06:10
WBC 7.8
Hgb 10.7 L
Hct 31.4 L
Plt Count 343
Sodium 139
Potassium 3.5
Chloride 105
Carbon Dioxide 29
BUN 9
Creatinine 0.6
Glucose 98
Calcium 9.1
Total Bilirubin 0.8
AST 27
ALT 107 H
Alkaline Phosphatase 107
Vital Signs:
Vital Signs
Temp Pulse Resp BP Pulse Ox
98.5 F 92 18 179/83 96
02/04/25 07:05 02/04/25 07:05 02/04/25 07:05 02/04/25 07:05 02/04/25 07:05
I&O
02/03/25 02/04/25 02/05/25
06:59 06:59 06:59
Intake Total 360 / 360 1440 / 1440
Balance 360 / 360 1440 / 1440
--- NOTE | 2025-02-04 13:12 | CM ---
Chart reviewed and plan is to home when stable, no needs.
Plan; Home no needs when stable.
[2025-02-04 13:26] VITALS: BP 150/70
[2025-02-04 15:00] VITALS: BP 153/69
== END 2025-02-04 17:41 | disposition home or self-care (01) | DRG 444 ==
LOC: 3 WEST ACU 00:26
PROVIDERS: Emergency Medicine; Internal Medicine Gastroenterology; Physician Assistant Medical; ADMITTING PHYSICIAN Hospitalist; ATTENDING PHYSICIAN Hospitalist; CONSULT PHYSICIAN Internal Medicine; CONSULT PHYSICIAN Internal Medicine Critical Care Medicine; CONSULT PHYSICIAN Surgery; EMERGENCY PHYSICIAN Emergency Medicine; FAMILY PHYSICIAN Family Medicine; OTHER PHYSICIAN Internal Medicine Cardiovascular Disease
PROC: 0FBC8ZX Excision of Ampulla of Vater, Via Natural or Artificial Opening Endoscopic, Diagnostic (ICD-10-PCS; 2025-01-28)
PROC: 0F7D8DZ Dilation of Pancreatic Duct with Intraluminal Device, Via Natural or Artificial Opening Endoscopic (ICD-10-PCS; 2025-01-28)
PROC: 0FC98ZZ Extirpation of Matter from Common Bile Duct, Via Natural or Artificial Opening Endoscopic (ICD-10-PCS; 2025-01-28)
DX: K80.50 Calculus of bile duct without cholangitis or cholecystitis without obstruction (principal); J18.9 Pneumonia, unspecified organism; J96.91 Respiratory failure, unspecified with hypoxia; K85.90 Acute pancreatitis without necrosis or infection, unspecified; K91.89 Other postprocedural complications and disorders of digestive system; K56.7 Ileus, unspecified; I10 Essential (primary) hypertension; K21.9 Gastro-esophageal reflux disease without esophagitis; E78.00 Pure hypercholesterolemia, unspecified; I35.0 Nonrheumatic aortic (valve) stenosis; Z80.0 Family history of malignant neoplasm of digestive organs; Z86.018 Personal history of other benign neoplasm; Z79.899 Other long term (current) drug therapy; Z11.52 Encounter for screening for COVID-19; Y83.8 Other surgical procedures as the cause of abnormal reaction of the patient, or of later complication, without mention of misadventure at the time of the procedure; K59.09 Other constipation
CPT/HCPCS: 88305; 71046; 74019; 74177; 74330; 76000; 80053; 83690; 83735; 84484; 85018; 85025; 85027; 85610; 87040; 87070; 87502; 87811; 92610; 93005; 96361; 96374; 96375; 99285; C1769; C2617; Q9967

== ENCOUNTER → 2025-02-07 09:11 | Outpatient (REF) | payer MEDICARE, OTHER, SELFPAY ==
[2025-02-07 10:28] LABS: % Basophils 0.5 % (0-2); % Eosinophils 3.1 % (0-6); % Immature Granulocytes 0.9 % (0-0.5); % Lymphocytes 19.6 % (20.5-51.1); % Monocytes 7.6 % (1.7-9.3); % Neutrophils 68.3 % (42.2-75.2); Absolute Eosinophils 0.3 10^3/uL (0-0.7); Absolute Immature Granulocytes 0.1 10^3/uL (0-0.05); Absolute Lymphocytes 1.6 10^3/uL (1.2-3.4); Absolute Monocytes 0.6 10^3/uL (0.1-0.6); Absolute Neutrophils 5.6 10^3/uL (1.4-6.5); Hematocrit 33.9 % (37.0-47.0); Hemoglobin 11.4 g/dL (12.0-16.0); Mean Corp Hgb Conc. 33.6 g/dL (33.0-37.0); Mean Corpuscular Hgb 28.9 pg (27.0-31.0); Mean Platelet Volume 10.3 fL (7.4-10.4); Nucleated Red Blood Cells % 0 %; Platelet Count 427 10^3/uL (130-400); Red Blood Cell Count 3.94 10^6/uL (4.20-5.40); Red Cell Dist. Width 13.2 % (11.5-14.5); White Blood Cell Count 8.1 10^3/uL (4.8-10.8)
[2025-02-07 11:04] LABS: ALT (SGPT) 67 U/L (0-35); AST (SGOT) 26 U/L (14-36); Albumin 3.9 g/dl (3.5-5.0); Alkaline Phosphatase 93 U/L (38-126); Blood Urea Nitrogen 11 mg/dl (7-17); Calcium 9.4 mg/dl (8.4-10.2); Carbon Dioxide 28 mmol/L (22-30); Chloride 107 mmol/L (98-107); Glucose 97 mg/dl (70-99); Magnesium 1.8 mg/dl (1.6-2.3); Potassium 4.4 mmol/L (3.5-5.1); Sodium 143 mmol/L (135-145); Total Bilirubin 0.7 mg/dl (0.2-1.3); Total Protein 6.2 g/dl (6.3-8.2); eGFR > 60.00
== END ==
LOC: REG 09:11
PROVIDERS: ATTENDING PHYSICIAN Family Medicine
DX: K85.90 Acute pancreatitis without necrosis or infection, unspecified (principal)
CPT/HCPCS: 36415; 80053; 83735; 85025

== ENCOUNTER → 2025-02-15 08:36 | Outpatient (REF) | payer MEDICARE, OTHER, SELFPAY | LOC: RAD 08:36 | PROVIDERS: ATTENDING PHYSICIAN Internal Medicine Gastroenterology; FAMILY PHYSICIAN Family Medicine | DX: Z98.890 Other specified postprocedural states (principal) | CPT/HCPCS: 74018 ==

== ENCOUNTER → 2025-02-25 09:07 | Outpatient (REF) | payer MEDICARE, OTHER, SELFPAY ==
[2025-02-25 10:57] LABS: % Basophils 0.8 % (0-2); % Eosinophils 2.4 % (0-6); % Immature Granulocytes 0.2 % (0-0.5); % Lymphocytes 26.9 % (20.5-51.1); % Neutrophils 60.7 % (42.2-75.2); Absolute Eosinophils 0.1 10^3/uL (0-0.7); Absolute Lymphocytes 1.4 10^3/uL (1.2-3.4); Absolute Monocytes 0.5 10^3/uL (0.1-0.6); Absolute Neutrophils 3.2 10^3/uL (1.4-6.5); Hematocrit 36.5 % (37.0-47.0); Hemoglobin 11.7 g/dL (12.0-16.0); Mean Corp Hgb Conc. 32.1 g/dL (33.0-37.0); Mean Corpuscular Hgb 28.3 pg (27.0-31.0); Mean Corpuscular Volume 88.4 fL (81.0-99.0); Nucleated Red Blood Cells % 0 %; Platelet Count 357 10^3/uL (130-400); Red Blood Cell Count 4.13 10^6/uL (4.20-5.40); Red Cell Dist. Width 12.8 % (11.5-14.5); White Blood Cell Count 5.3 10^3/uL (4.8-10.8)
[2025-02-25 11:03] LABS: ALT (SGPT) 18 U/L (0-35); AST (SGOT) 23 U/L (14-36); Albumin 4.3 g/dl (3.5-5.0); Alkaline Phosphatase 78 U/L (38-126); Blood Urea Nitrogen 15 mg/dl (7-17); Carbon Dioxide 28 mmol/L (22-30); Chloride 109 mmol/L (98-107); Glucose 99 mg/dl (70-99); Potassium 4.8 mmol/L (3.5-5.1); Sodium 141 mmol/L (135-145); Total Bilirubin 0.7 mg/dl (0.2-1.3); Total Protein 6.7 g/dl (6.3-8.2); eGFR > 60.00
== END ==
LOC: REG 09:07
PROVIDERS: ATTENDING PHYSICIAN Family Medicine
DX: D72.89 Other specified disorders of white blood cells (principal); E78.00 Pure hypercholesterolemia, unspecified; R79.89 Other specified abnormal findings of blood chemistry; E83.42 Hypomagnesemia
CPT/HCPCS: 36415; 80053; 83735; 85025

== ENCOUNTER → 2025-03-08 12:14 | Outpatient (REF) | payer MEDICARE, OTHER, SELFPAY | LOC: RAD 12:14 | PROVIDERS: ATTENDING PHYSICIAN Internal Medicine Gastroenterology; FAMILY PHYSICIAN Family Medicine | DX: Z98.890 Other specified postprocedural states (principal) | CPT/HCPCS: 74018 ==

== ENCOUNTER → 2025-03-14 12:38 | Outpatient (REF) | payer MEDICARE, OTHER, SELFPAY | LOC: WDC 12:38 | PROVIDERS: ATTENDING PHYSICIAN Family Medicine | DX: Z12.31 Encounter for screening mammogram for malignant neoplasm of breast (principal); Z78.0 Asymptomatic menopausal state | CPT/HCPCS: 77063; 77067; 77080 ==

== ENCOUNTER 2025-04-11 06:09 | Day surgery (SDC) | payer MEDICARE, OTHER, SELFPAY ==
[2025-04-11] VITALS (10 sets, daily range): BP systolic 99–133; BP diastolic 44–70; BMI 22.7
[2025-04-11] MEDS: NORMOSOL-R/PLASMALYTE-A 1000 IV (08:23)
[2025-04-11] MEDS: TYLENOL 1000 MG PO (08:23)
[2025-04-11] MEDS: HEPARIN 5000 UNITS SC (08:24)
[2025-04-11] MEDS: IC GREEN 2.5 MG IV (08:29)
--- NOTE | 2025-04-11 10:47 | OR.RPT ---
Operative Report
Operative Report
Primary Surgeon: Tarun
Assisting: Shannan
Pre-op Diagnosis: Biliary pancreatitis
Post-op Diagnosis: Same
Procedure Performed: Robot assisted laparoscopic cholecystectomy with near-infared fluorescence imaging of bile ducts
Anesthesia Type: GETA
Specimen / Cultures: Gallbladder
Estimated Blood Loss: 3cc
Complications: None immediate
Operative Findings: Floppy gallbladder with mildly thickened wall; CBD-cystic junction visualized with ICG and protected
Date of Surgery: 04/11/25
Indications: This 79F developed biliary pancreatitis and underwent successful ERCP. Laparoscopic cholecystectomy was elected.
Description of procedure: The patient was placed on the operating table in the supine position. General anesthesia was induced. A time-out was completed verifying correct patient, procedure, site, positioning, and special equipment prior to
beginning this procedure. An orogastric tube was placed. The abdomen was prepped and draped in the usual sterile fashion. A stab incision was made in left upper quadrant and the Veress needle was inserted. Proper position was confirmed by aspiration
and saline meniscus test. The abdomen was insufflated with carbon dioxide to a pressure of 12 mmHg. The patient tolerated insufflation well.
An 8mm optical trocar was then above and to the left the umbilicus. The laparoscope was inserted and the abdomen inspected. No injuries from initial trocar placement or Veress needle insertion were noted. Additional 8mm trocars were then inserted in
the following locations: above the umbilicus and along the right costal margin. The abdomen was inspected and no abnormalities were found. The table was placed in the reverse Trendelenburg position with the right side up. The dome of the gallbladder
was grasped with an atraumatic grasper and retracted over the dome of the liver. The infundibulum was also grasped with an atraumatic grasper and retracted toward the right lower quadrant. This maneuver exposed Calot�s triangle. The peritoneum
overlying the gallbladder infundibulum was then incised and the cystic duct and cystic artery identified and circumferentially dissected so that a clear view of the liver was achieved through a window between the cystic duct an cystic artery. At
this time, the only two structures going into the gallbladder were the cystic artery and cystic duct. The common duct and cystic duct and their junction were visualized with ICG and protected.
The cystic duct was then doubly clipped and divided close to the gallbladder and the cystic artery was controlled with bipolar and divided. The gallbladder was then dissected from its peritoneal attachments by electrocautery. Hemostasis was assured
and the gallbladder and contained stones were removed using an endoscopic retrieval bag placed through the umbilical port. The gallbladder was passed off the table as a specimen. The gallbladder fossa was closely inspected and hemostasis was again
assured. There was no evidence of bleeding from the gallbladder fossa or cystic artery or leakage of the bile from the cystic duct stump. The umbilical trocar site was closed at the fascial level laparoscopically with 2-0 PDS. Secondary trocars were
removed under direct vision and noted to be hemostatic. The laparoscope was withdrawn and the umbilical trocar removed. The abdomen was allowed to collapse. The skin was closed with subcuticular sutures of 4-0 monocryl and topical skin adhesive. The
orogastric tube was removed.
The patient tolerated the procedure well and was taken to the postanesthesia care unit in stable condition.
[2025-04-11] MEDS: DILAUDID 0.25 MG IV (11:32)
[2025-04-11] MEDS: ZOFRAN 4 MG IV (11:42)
[2025-04-11] MEDS: MORPHINE SULFATE 1 MG IV (11:57)
== END 2025-04-11 13:30 | disposition home or self-care (01) ==
LOC: SDS 06:09
PROVIDERS: ATTENDING PHYSICIAN Surgery
DX: K80.10 Calculus of gallbladder with chronic cholecystitis without obstruction (principal); K85.10 Biliary acute pancreatitis without necrosis or infection
CPT/HCPCS: 47562; 88304

== ENCOUNTER → 2025-04-19 12:31 | Outpatient (REF) | payer MEDICARE, OTHER, SELFPAY | LOC: RAD 12:31 | PROVIDERS: ATTENDING PHYSICIAN Internal Medicine Critical Care Medicine; FAMILY PHYSICIAN Family Medicine | DX: R93.89 Abnormal findings on diagnostic imaging of other specified body structures (principal); J90 Pleural effusion, not elsewhere classified | CPT/HCPCS: 71046 ==

== ENCOUNTER → 2025-07-08 15:02 | Outpatient (REF) | payer MEDICARE, OTHER, SELFPAY | LOC: HWRCS 15:02 | PROVIDERS: ATTENDING PHYSICIAN Internal Medicine Cardiovascular Disease; FAMILY PHYSICIAN Family Medicine | DX: R07.9 Chest pain, unspecified (principal); I10 Essential (primary) hypertension; I35.0 Nonrheumatic aortic (valve) stenosis; E78.5 Hyperlipidemia, unspecified; R73.03 Prediabetes; R00.2 Palpitations | CPT/HCPCS: 93306 ==

== ENCOUNTER → 2025-09-19 08:12 | Outpatient (REF) | payer MEDICARE, OTHER, SELFPAY ==
[2025-09-19 09:39] LABS: Hematocrit 40.8 % (37.0-47.0); Hemoglobin 13.4 g/dL (12.0-16.0); Mean Corp Hgb Conc. 32.8 g/dL (33.0-37.0); Mean Corpuscular Volume 87.6 fL (81.0-99.0); Nucleated Red Blood Cells % 0 %; Platelet Count 387 10^3/uL (130-400); Red Cell Dist. Width 12.6 % (11.5-14.5)
[2025-09-19 10:50] LABS: ALT (SGPT) 36 U/L (0-35); AST (SGOT) 26 U/L (14-36); Albumin 4.3 g/dl (3.5-5.0); Alkaline Phosphatase 110 U/L (38-126); Blood Urea Nitrogen 16 mg/dl (7-17); Calcium 10.2 mg/dl (8.4-10.2); Carbon Dioxide 27 mmol/L (22-30); Chloride 107 mmol/L (98-107); Glucose 103 mg/dl (70-99); HDL Cholesterol 45 mg/dl; LDL Cholesterol, Calculated 112 mg/dl; Potassium 5.0 mmol/L (3.5-5.1); Sodium 140 mmol/L (135-145); Total Protein 7.0 g/dl (6.3-8.2); Very Low Density Lipoprotein 31 mg/dl (0-30); eGFR > 60.00
[2025-09-19 12:36] LABS: Glycohemoglobin (HgbA1c) 5.8 % (4.0-5.9)
== END ==
LOC: REG 08:12
PROVIDERS: ATTENDING PHYSICIAN Family Medicine
DX: I10 Essential (primary) hypertension (principal); R73.03 Prediabetes; E78.00 Pure hypercholesterolemia, unspecified
CPT/HCPCS: 36415; 80053; 80061; 83036; 84443; 85025